=== PATIENT | female | born 1990 | race Caucasian/White ===

== ENCOUNTER 2017-03-22 13:18 | Inpatient (IN) | payer MEDICAID, OTHER ==
--- NOTE | 2017-03-22 15:17 | ED ---
General Adult HPI - General Chief complaint: Psychiatric Symptoms Stated complaint: mental health Time Seen by Provider: 03/22/17 14:46 Source: patient, RN notes reviewed Mode of arrival: ambulatory Limitations: no limitations - History of Present Illness Initial comments: 26-year-old female presents to the emergency department with a chief complaint of needing a mental health evaluation. Patient has been causing some habits and her family she has been writing notes to her work they are in formulas and she's been referencing TV shows. Family was informed by the police that she should take her for mental health evaluation. Patient denies any suicidal or homicidal ideation. Patient denies any recent fever, chills, shortness of breath , chest pain, back pain, abdominal pain, nausea vomiting, numbness or tingling, dysuria or hematuria, constipation or diarrhea, headaches or visual changes, or any other current symptoms. - Related Data Home Medications Medication Instructions Recorded Confirmed Melatonin Magnesium Otc 2 - 4 tab PO HS 03/22/17 03/22/17 Allergies Allergy/AdvReac Type Severity Reaction Status Date / Time No Known Allergies Allergy Verified 03/22/17 15:06 Review of Systems ROS Statement: Those systems with pertinent positive or pertinent negative responses have been documented in the HPI. ROS Other: All systems not noted in ROS Statement are negative. Past Medical History Past Medical History: No Reported History Additional Past Medical History / Comment(s): PCOS History of Any Multi-Drug Resistant Organisms: None Reported Past Surgical History: No Surgical Hx Reported Past Psychological History: Anxiety, Bipolar, Depression, Panic Disorder Smoking Status: Current every day smoker Past Alcohol Use History: None Reported Past Drug Use History: None Reported General Exam - General Exam Comments Initial Comments: General: The patient is awake and alert, in no distress, and does not appear acutely ill. Eye: Pupils are equal, round. Ears, nose, mouth and throat: There are moist mucous membranes. Neck: The neck is supple, there is no tenderness. Cardiovascular: There is a regular rate and rhythm. No murmur, rub or gallop is appreciated. Respiratory: Lungs are clear to auscultation, respirations are non-labored, breath sounds are equal. No wheezes, stridor, rales, or rhonchi. Gastrointestinal: Soft, non-distended, non-tender abdomen without masses or organomegaly noted. There is no rebound or guarding present. No CVA tenderness. Bowel sounds are unremarkable. Neurological: CN II-XII intact, There are no obvious motor or sensory deficits. Coordination appears grossly intact. Speech is normal. Skin: Skin is warm and dry and no rashes or lesions are noted. Psychiatric: Cooperative. flat affect. Limitations: no limitations Course Vital Signs 03/22/17 13:35 Temperature 98.7 F Pulse Rate 115 H Respiratory 18 Rate Blood Pressure 138/96 O2 Sat by Pulse 100 Oximetry Medical Decision Making - Medical Decision Making 26-year-old female presents for mental health evaluation. At this time no suicidal or homicidal ideation. At this time the patient is cleared to be evaluated by psychiatry. At this time patient will be admitted for continued mental health care. - Lab Data Lab Results 03/22/17 03/22/17 Range/Units 15:44 15:44 Urine HCG, Qual Not Detected (Not Detectd) Urine Opiates Screen Not Detected (NotDetected) Ur Oxycodone Screen Not Detected (NotDetected) Urine Methadone Screen Not Detected (NotDetected) Ur Propoxyphene Screen Not Detected (NotDetected) Ur Barbiturates Screen Not Detected (NotDetected) U Tricyclic Antidepress Not Detected (NotDetected) Ur Phencyclidine Scrn Not Detected (NotDetected) Ur Amphetamines Screen Not Detected (NotDetected) U Methamphetamines Scrn Not Detected (NotDetected) U Benzodiazepines Scrn Not Detected (NotDetected) Urine Cocaine Screen Not Detected (NotDetected) U Marijuana (THC) Screen Not Detected (NotDetected) Disposition Clinical Impression: Psychosis Disposition: TRANSFER TO PSYCH HOSP/UNIT
[2017-03-22 16:18] LABS: Amphetamine Screen,Urine Not Detected (NotDetected); Barbiturate Screen,Urine Not Detected (NotDetected); Benzodiazepines Screen,Urine Not Detected (NotDetected); Cocaine Screen,Urine Not Detected (NotDetected); Methadone Screen, Urine Not Detected (NotDetected); Opiate Screen,Urine Not Detected (NotDetected); Oxycodone Screen, Urine Not Detected (NotDetected); Phencyclidine Screen,Urine Not Detected (NotDetected); Tricyclic Antidepressant,Urine Not Detected (NotDetected); Urn Cannabinoid Scrn Not Detected (NotDetected)
[2017-03-22] MEDS ORDERED: NICOTINE 7MG/24HR PATCH TRANSDERM STA (17:05)
[2017-03-22] MEDS ORDERED: LORazepam 2 MG/ML INJ IM PRN (18:00)
[2017-03-22] MEDS ORDERED: ZIPRASIDONE 20 MG VIAL IM PRN (18:01)
[2017-03-22] MEDS ORDERED: ACETAMINOPHEN TAB 325 MG TAB PO PRN (18:01)
[2017-03-22] MEDS ORDERED: MAGNESIUM HYDROXIDE 2,400 MG/10 ML CUP PO PRN (18:01)
[2017-03-22] MEDS ORDERED: MAG HYDROX/AL HYDROX/SIMETH 30 ML CUP PO PRN (18:01)
--- NOTE | 2017-03-22 20:19 | P.MDCNMH ---
History of Present Illness H&P Date: 03/22/17 Chief Complaint: medical management 26 year old female with history of PCOS, presented due to family concerns regarding her behavior. Patient denies any issues, she reports that she has left her family in [place] and moved to [place] to live with her aunt, meanwhile she was preparing to go back to school and hoping to get admitted to [facility]. Her aunt had concerns regarding her behavior over the past 3-4 months and decided to bring her back to the [facility] for mental health evaluation. Otherwise the patient denies any physical or medical concerns at this time. Review of Systems Constitutional: Patient denies fever, denies chills, denies night sweating, denies significant weight changes Eyes: Patient denies visual changes, denies eye pain ENT: Patient denies ear pain, denies rhinorrhea, denies sore throat Cardiovascular: Patient denies chest pain, denies exertional dyspnea, denies peripheral leg edema, denies orthopnea, denies paroxysmal nocturnal dyspnea Respiratory:Patient denies cough, denies wheezing, denies shortness of breath Gastrointestinal: Patient denies diarrhea, denies constipation, denies nausea , denies vomiting, denies abdominal pain Genitourinary: Patient denies dysuria, denies hematuria, denies changes in urinary habits, denies genital lesions Musculoskeletal: Patient denies muscle pain, denies joint pain Psychiatric: Patient denies changes in mood or memory, denies suicidal ideation, denies anxiety Endocrine: Patient denies heat intolerance, denies cold intolerance, denies excessive thirst, denies polyuria Neurological: Patient denies focal neurologic deficits, denies weakness, denies numbness, denies tingling Hem/Lymphatic: Patient denies bleeding tendency, denies bruising, denies swollen lymph glands Allergic/Immun: Patient denies recent allergic reactions Skin: Patient denies rashes, denies pruritis, denies ulcers Past Medical History Past Medical History: No Reported History (denies any family history of CAD, CA , or mental health illnesses) Additional Past Medical History / Comment(s): PCOS History of Any Multi-Drug Resistant Organisms: None Reported Past Surgical History: No Surgical Hx Reported Smoking Status: Current every day smoker - Past Family History Father Additional Family Medical History / Comment(s): Medications and Allergies Home Medications Medication Instructions Recorded Confirmed Type Melatonin Magnesium Otc 2 - 4 tab PO HS 03/22/17 03/22/17 History Allergies Allergy/AdvReac Type Severity Reaction Status Date / Time No Known Allergies Allergy Verified 03/22/17 15:06 Physical Exam Vitals: Vital Signs Temp Pulse Pulse Resp BP BP Pulse Ox 03/22/17 18:33 98.2 F 103 H 18 125/76 03/22/17 17:54 98.2 F 95 16 128/79 100 03/22/17 13:35 98.7 F 115 H 18 138/96 100 Intake and Output 03/22/17 03/22/17 03/22/17 06:59 14:59 22:59 Other: Weight 104.145 kg 102.228 kg Patient Weight 03/23/17 06:59 Weight 102.228 kg Constitutional: No acute distress, conversant, pleasant Eyes: Anicteric sclerae, moist conjunctiva, no lid-lag Pupils equal round reactive to light ENMT: NC/AT Oropharynx clear, no erythema, exudates Neck: Supple, FROM, no masses, or JVD No carotid bruits No thyromegaly Lungs: Clear to auscultation Clear to percussion Normal respiratory effort, no accessory muscle use Cardiovascular: Heart regular in rate and rhythm, systolic murmur, no gallops, or rubs No peripheral edema Abdominal: Soft Nontender, no guarding, rebound or rigidity Abdomen moving with respiration Normoactive bowel sounds No hepatomegaly, No splenomegaly No palpable mass No abdominal wall hernia noted Skin: Normal temperature, tone, texture, turgor No induration No subcutaneous nodules No rash, lesions No ulcers Extremities: No digital cyanosis No clubbing Pedal pulses intact and symmetrical Radial pulses intact and symmetrical No calf tenderness Psychiatric: Alert and oriented to person, place and time Appropriate affect poor judgment Neuro Muscles Strength 5/5 in all 4 extremities Sensation to light touch grossly present throughout Cranial nerves II-XII grossly intact No focal sensory deficits Lymphatics: no palpable cervical or supraclavicular , or inguinal lymph nodes Cranial Nerve Examination - Cranial Nerves Cranial Nerve II- Optic: Intact Cranial Nerve III- Oculomotor: Intact Cranial Nerve IV- Trochlear: Intact Cranial Nerve V- Trigeminal: Intact Cranial Nerve - Abducens: Intact Cranial Nerve VII- Facial: Intact Cranial Nerve VIII- Auditory: Intact Cranial Nerve IX- Glossopharyngeal: Intact Cranial Nerve X- Vagus: Intact Cranial Nerve XI- Accessory: Intact Cranial Nerve XII- Hypoglossal: Intact Assessment and Plan (1) Psychosis Narrative/Plan: management per psych Current Visit: Yes Status: Acute Code(s): F29 - UNSP PSYCHOSIS NOT DUE TO A SUBSTANCE OR KNOWN PHYSIOL COND SNOMED Code(s): 61897570 (2) Smoking Narrative/Plan: counseled to quit smoking NRT offered Current Visit: Yes Status: Chronic Code(s): F17.200 - NICOTINE DEPENDENCE, UNSPECIFIED, UNCOMPLICATED SNOMED Code(s): 57289180 (3) DVT prophylaxis Narrative/Plan: low risk and ambulatory Current Visit: Yes Status: Acute Code(s): INV2994 - SNOMED Code(s): 490925582 Plan: Thank you for allowing us to participate in the care of this patient. We will follow peripherally. Do not hesitate to contact us with questions. Someone can be reached from the [facility] hospitalist group at all hours of the day at [phone].
[2017-03-22] MEDS ORDERED: LORazepam 1 MG TAB PO PRN (23:01)
[2017-03-23] MEDS: NICOTINE 21MG/24HR PATCH TRANSDERM SCH (09:45)
[2017-03-23] MEDS: ARIPiprazole 2 MG TAB PO SCH (10:05)
[2017-03-23 12:40] LABS: ALT 24 U/L (9-52); AST 18 U/L (14-36); Albumin 4.9 g/dL (3.5-5.0); Alkaline Phosphatase 58 U/L (38-126); Anion Gap 15 mmol/L; Blood Urea Nitrogen 12 mg/dL (7-17); Calcium 10.3 mg/dL (8.4-10.2); Carbon Dioxide 23 mmol/L (22-30); Chloride 107 mmol/L (98-107); Cholesterol 156 mg/dL (<200); Glucose 78 mg/dL (74-99); HDL Cholesterol 39 mg/dL (40-60); LDL Cholesterol,Calculated 99 mg/dL (0-99); Potassium 4.2 mmol/L (3.5-5.1); Sodium 145 mmol/L (137-145); Total Bilirubin 1.7 mg/dL (0.2-1.3); Total Protein 7.8 g/dL (6.3-8.2); Triglycerides 92 mg/dL (<150)
[2017-03-23 12:43] LABS: Basophils # (A) 0.1 k/uL (0-0.2); Basophils % (A) 1 %; Eosinophils % (A) 1 %; HCT 46.1 % (34.0-46.0); HGB 14.6 gm/dL (11.4-16.0); Lymphocytes # (A) 1.6 k/uL (1.0-4.8); Lymphocytes % (A) 26 %; MCH 27.4 pg (25.0-35.0); MCHC 31.7 g/dL (31.0-37.0); MCV 86.4 fL (80.0-100.0); Mean Platelet Volume 8.4; Monocytes # (A) 0.3 k/uL (0-1.0); Monocytes % (A) 4 %; Neutrophils # (A) 4.2 k/uL (1.3-7.7); Neutrophils % (A) 67 %; Platelet Count 252 k/uL (150-450); RBC 5.33 m/uL (3.80-5.40); RDW 13.1 % (11.5-15.5); WBC 6.2 k/uL (3.8-10.6)
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
[2017-03-23 20:31] LABS: Hemoglobin A1C 4.8 % (4.0-6.0)
[2017-03-24] MEDS: NICOTINE 21MG/24HR PATCH TRANSDERM SCH (08:24)
[2017-03-24] MEDS: ARIPiprazole 2 MG TAB PO SCH (08:25)
--- NOTE | 2017-03-24 16:21 | P.PN ---
Progress Note - Text Progress Note Date: 03/24/17 Interval History: Patient is a 26-year-old female who was seen today and she reports that her thoughts are still racing, and she continues to have trouble perceiving reality which she describes as not being able to tell if people are really there are not. She states that she's does work for the [employer] and wishes that I could see her business cards. Patient states that she still feels restless and has a lot of energy and is irritable. She states that she is not feeling depressed and is not hearing voices. She also reported that she would consider a trial of lithium carbonate. Mental Status: Appearance/Attitude: Patient was neatly dressed, made good eye contact and was cooperative. Behavior: Patient did not display any psychomotor agitation or retardation. Speech/Language: Patient's speech was spontaneous and of normal volume and rhythm and she is coherent. Thought Process: Patient was goal-directed and she was not exhibiting any flight of ideas or loose associations. Thought Content: Patient denied any auditory or visual hallucinations but states at times she has trouble perceiving reality and doesn't know if people are really here or not. She states that her thoughts are still racing and she has difficulty sleeping even though she feels tired. She states she feels restless and needs to be up walking. Patient continued to express that she does work for the [employer] and wishes that I could see her business cards. Suicidal/Homicidal Ideation: Patient denies any current suicidal or homicidal ideation. Sensorium/Cognition: Patient was alert and oriented to person place and time and her recent and remote memory were grossly intact. Mood/Affect: Patient's mood was irritable and at times her affect was inappropriate, she was laughing when discussing working for the [employer]. Insight/Judgment: Patient's insight and judgment are limited. Assessment: Patient reports that her thoughts are still racing and she is continuing to have difficulty sleeping. She states that she has trouble perceiving reality and states that she does work for the [employer]. Patient continues to feel that cleaning solutions when she was at work have caused her to feel the way that she does. She reports no side effects from them medication and states that she would like to try lithium in addition to the Abilify. Patient states she is feeling irritable at times but is not feeling depressed. Plan: Patient will continue on Abilify but it will be increased to 5 mg daily and she will begin lithium 300 mg twice a day to target her mood and I reviewed the use and side effects of lithium with her. Patient will also be given melatonin 3 mg at bedtime to assist with her sleep. Patient continues to require hospitalization to stabilize her mood.
[2017-03-24] MEDS: MELATONIN 3 MG TABLET PO SCH (20:14)
[2017-03-24] MEDS: LITHIUM CARBONATE 300 MG CAP PO SCH (20:14)
[2017-03-25] MEDS: ARIPiprazole 5 MG TAB PO SCH (08:18)
[2017-03-25] MEDS: NICOTINE 21MG/24HR PATCH TRANSDERM SCH (08:18)
[2017-03-25] MEDS: LITHIUM CARBONATE 300 MG CAP PO SCH ×2 (08:18→21:00)
--- NOTE | 2017-03-25 12:25 | P.PN ---
Progress Note - Text Progress Note Date: 03/25/17 Interval History: Patient is a 26-year-old female who was seen again today and she reports that she slept well last evening. She states that her racing thoughts have decreased. Patient states she is feeling less irritable and has been attending groups and activities. She reports her focus and concentration have also improved and she no longer feels that she has any super strength. Patient continues to feel that the chemicals that she uses a camouflage assembler have caused her current problems and when questioned about her business card stated that it was a project so that she could try to get into [employer] for a business degree, she made the business card and states it was an idea it showed that she was creative. 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 Patient reports that she is not having any side effects from the medication. Mental Status: Appearance/Attitude: Patient was neatly and appropriately dressed , made good eye contact and was cooperative. Behavior: Patient did not display any psychomotor agitation or retardation. Speech/Language: Patient's speech was spontaneous and of normal volume and rhythm and she was coherent. Thought Process: Patient was goal-directed, reports that her racing thoughts have slowed. She was not expressing any loose associations or flight of ideas. Thought Content: Patient denies any auditory or visual hallucinations, patient continues to feel the chemicals she uses a camouflage assembler caused all of her symptoms. 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 Patient states that she is sleeping and eating well and is feeling much less irritable. Suicidal/Homicidal Ideation: Patient denies any current suicidal or homicidal ideation. Sensorium/Cognition: Patient is alert and oriented to person, place, time and her recent and remote memory are grossly intact. Patient reports that her concentration and focus have improved. Mood/Affect: Patient's mood is less irritable, and her affect is appropriate. 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 She also continues to believe that the chemicals of caused all of her current problems. Patient reports no side effects from the medication and states that she is sleeping and eating well. Patient has been attending and participating in groups and activities. Plan: Patient continue on Abilify 5 mg daily to target her psychotic symptoms and lithium 300 mg twice a day to target her mood. A lithium level will be obtained on March 27 to assess
[2017-03-25] MEDS: MELATONIN 3 MG TABLET PO SCH (21:00)
[2017-03-26] MEDS: NICOTINE 21MG/24HR PATCH TRANSDERM SCH (08:28)
[2017-03-26] MEDS: LITHIUM CARBONATE 300 MG CAP PO SCH ×2 (08:28→20:28)
[2017-03-26] MEDS: ARIPiprazole 5 MG TAB PO SCH (08:28)
--- NOTE | 2017-03-26 12:22 | P.PN ---
Progress Note - Text Progress Note Date: 03/26/17 Interval History: Patient's 26-year-old female who was seen today and she reports that she slept 6 hours last night, feels rested. She reports that the racing thoughts and decreased and she is not having any suicidal or homicidal thoughts. She would not discuss the topic of the women that she had been contacting under [place] soon to name and states she'll wait to speak about that with a counselor. She reports that she does not feel she has any superhuman strength. But when questioned about the business card that she designed with a title she stated that even though she does not have a degree she could use that title as Dr. Santa uses the title and he has no degree. 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 Patient reported no side effects from the medication. Mental Status: Appearance/Attitude: Patient is appropriately dressed, makes good eye contact and is cooperative. Behavior: Patient does not display any psychomotor agitation or retardation. Speech/Language: Patient's speech is spontaneous and of normal volume and rhythm and she is coherent. 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 Patient no longer feels she has superhuman strength and states she is sleeping well and feeling rested. Suicidal/Homicidal Ideation: Patient denies any current suicidal or homicidal ideation Sensorium/Cognition: Patient is alert and oriented to person, place, and time and her recent and remote memory are grossly intact. Patient reports her concentration and focus have improved. 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 Patient reports she has no source of financial support other than money that she has in an [employer] where she was working in [place]. Patient is reporting no side effects from the medication and is sleeping well. She reports her racing thoughts have improved and she is able to concentrate and focus. She and has been attending and participating in groups. Plan: Patient continue on Abilify 5 mg a day as well as lithium 300 mg twice a day to target her manic symptoms. Melatonin 3 mg we'll continue to target her sleep. Will obtain a lithium level tomorrow morning and based on that level will adjust her dosage of lithium. Patient continues to require hospitalization to further stabilize her mood.
[2017-03-26] MEDS: MELATONIN 3 MG TABLET PO SCH (20:28)
[2017-03-27] MEDS: ARIPiprazole 5 MG TAB PO SCH (09:47)
[2017-03-27] MEDS: NICOTINE 21MG/24HR PATCH TRANSDERM SCH (09:48)
[2017-03-27] MEDS: LITHIUM CARBONATE 300 MG CAP PO SCH ×2 (10:23→20:39)
--- NOTE | 2017-03-27 10:32 | P.PN ---
Progress Note - Text Progress Note Date: 03/27/17 Interval History: Patient is a 26-year-old female who was seen today. Patient states that she slept better last night because she removed her nicotine patch and did not have any nightmares and slept well through the evening. She reports that she is attending groups and activities and has found them helpful. She states her focus and concentration have improved and she is no longer having any racing thoughts. Patient did not spontaneously discuss any of her prior grandiose ideation regarding her business card. Patient reported no side effects from the medication. Mental Status: Appearance/Attitude: Patient was neatly and appropriately dressed , made good eye contact and was cooperative. Behavior: Patient did not exhibit any psychomotor agitation or retardation. Speech/Language: Patient's speech was spontaneous and of normal volume and rhythm and she was coherent. Thought Process: Patient was goal-directed and there was no evidence of loose associations or flight of ideas. Patient was not tangential nor circumstantial. 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 No other paranoid or delusional ideation was elicited. Patient reports that she is sleeping and eating well. She reported that she no longer has thoughts that she has super medina. Suicidal/Homicidal Ideation: Patient denies any current suicidal or homicidal ideation. Sensorium/Cognition: Patient was alert and oriented to person, place, time and her recent and remote memory were grossly intact. Patient reports her concentration and focus have improved and she is able to read a book Mood/Affect: Patient's mood is more stable, euthymic and her affect is appropriate Insight/Judgment: Patient's insight and judgment are fair. Assessment: Patient reports no further racing thoughts, she did not voluntarily express any delusional ideation or grandiose ideation today and patient states that she is no longer having any thoughts that she has super medina. She reports her concentration and focus have improved and she has been attending and participating in groups and activities. She reports that she slept well last evening after removing her nicotine patch. Patient reports no side effects from medications. Patient's lithium level this morning was 0.3. Plan: Patient continue on Abilify 5 mg daily and we'll increase her lithium to 300 mg in the morning and 600 mg at bedtime and repeat a lithium level on Wednesday to assess this. Patient and I discussed discharge early next week and she was agreeable with this plan.
[2017-03-27] MEDS: MELATONIN 3 MG TABLET PO SCH (20:39)
[2017-03-28] MEDS: LITHIUM CARBONATE 300 MG CAP PO SCH ×3 (08:39→20:39)
[2017-03-28] MEDS: NICOTINE 21MG/24HR PATCH TRANSDERM SCH (08:39)
[2017-03-28] MEDS: ARIPiprazole 5 MG TAB PO SCH (08:39)
--- NOTE | 2017-03-28 08:57 | P.PN ---
Progress Note - Text Progress Note Date: 03/28/17 Interval History: Patient is a 26-year-old female who is seen today and reports that she slept well last evening and feeling rested. She reports no racing thoughts at all and states that she is able to focus and concentrate well. 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 Patient states that she is not having any side effects from the medication. She reports attending groups and activities and finds them helpful. Mental Status: Appearance/Attitude: Patient is neatly dressed, makes good eye contact and is cooperative. Behavior: Patient does not display any psychomotor agitation or retardation. Speech/Language: Patient speech is spontaneous and of normal volume and rhythm and she is coherent. Thought Process: Patient is goal-directed there is no evidence of loose associations or flight of ideas and she is not tangential or circumstantial. Thought Content: Patient denies any auditory or visual hallucinations and no paranoid ideation was elicited and the patient is beginning to question her printing of business cards. She states that she is not feeling overwhelmed, is sleeping and eating well. Suicidal/Homicidal Ideation: Patient denies any current suicidal or homicidal ideation Sensorium/Cognition: Patient is alert and oriented to person, place, time and her recent and remote memory are grossly intact. Patient states her focus and attention are improved. Mood/Affect: Patient's mood is euthymic and her affect is appropriate Insight/Judgment: Patient's insight and judgment are fair. Assessment: Patient continues to improve, reporting that she is no longer having racing thoughts at all, states that she is sleeping and eating well and able to focus and concentrate without difficulty in groups and activities. She reports that she is beginning to question her printing of the business cards. She reports that she is no longer feeling overwhelmed and is sleeping and eating well. She continues to attend groups and activities and participate. Her mood is more stable. Plan: Patient will continue on lithium at a dose of 300 mg in the morning and 600 mg at bedtime and Abilify 5 mg in the morning we'll repeat a lithium level tomorrow morning. Patient and I discussed discharge in the next several days and she feels ready to do this.
[2017-03-28] MEDS: MELATONIN 3 MG TABLET PO SCH (20:39)
[2017-03-29] MEDS: ARIPiprazole 5 MG TAB PO SCH (09:27)
[2017-03-29] MEDS: LITHIUM CARBONATE 300 MG CAP PO SCH ×2 (09:28→20:15)
[2017-03-29] MEDS: NICOTINE 21MG/24HR PATCH TRANSDERM SCH (09:28)
--- NOTE | 2017-03-29 13:06 | P.PN ---
Progress Note - Text Progress Note Date: 03/29/17 Interval History: Patient is a 26-year-old female who was seen today and she reports that she is doing quite well. She states she is sleeping well and had a good family meeting with her aunt. She states she is no longer having racing thoughts and she states that she's been attending groups and activities and has been more social than she ever has been. She also was questioning whether printing up the business card was a good idea or not. 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 Patient reports she is not having any side effects from the medication. Patient and I when we discussed her mood symptoms was able to endorse that she has had episodes of depression and manic symptoms in the past that have not lasted for very long and have not caused her any difficulties until this most recent episode. Mental Status: Appearance/Attitude: Patient is appropriately dressed, makes good eye contact and is cooperative. Behavior: Patient does not display any psychomotor agitation or retardation. Speech/Language: Patient's speech is spontaneous and normal volume and rhythm and she is coherent. Thought Process: Patient is goal-directed there is no evidence of loose associations or flight of ideas and she is not tangential or circumstantial. Thought Content: Patient denies auditory or visual hallucinations and no paranoid ideation was elicited at this time. 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 Patient states that she is not having racing thoughts and is able to focus and concentrate much better and states that she has been more social on the unit than she has been in the past. Suicidal/Homicidal Ideation: Patient denies any current suicidal or homicidal ideation Sensorium/Cognition: Patient was alert and oriented to person, place, time and recent and remote memory were grossly intact. Mood/Affect: Patient's mood is euthymic and her affect is appropriate Insight/Judgment: Patient's insight and judgment are fair. 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 Patient states that she is focused and sleeping well. She also reports she is more social on the unit than she has been in the past. Patient reports no difficulties with the medications. Patient has been attending and participating in groups and activities and her behavior has been appropriate. Patient states her family meeting went well with her aunt. Repeat lithium level was 0.4 on 900 mg a day. Plan: Patient will continue on lithium carbonate 3 mg in the morning and 600 mg at bedtime and Abilify 5 mg in the morning. Patient reports that she will return to live with her aunt until she finds an apartment in the [place] area. Patient and I discussed possible discharge tomorrow and she states that she feels ready to be discharged from the hospital. Patient and I discussed that her lithium will be titrated further as an outpatient based on her blood levels and she understood this.
[2017-03-29] MEDS: MELATONIN 3 MG TABLET PO SCH (20:15)
[2017-03-30 06:44] VITALS: BP 112/67; PULSE 82; RESP 12; TEMP 97.7
[2017-03-30] MEDS: NICOTINE 21MG/24HR PATCH TRANSDERM SCH (08:28)
[2017-03-30] MEDS: LITHIUM CARBONATE 300 MG CAP PO SCH (08:28)
[2017-03-30] MEDS: ARIPiprazole 5 MG TAB PO SCH (08:28)
--- NOTE | 2017-03-30 12:24 | P.DS ---
Providers Date of admission: 03/22/17 17:45 Expected date of discharge: 03/30/17 Attending physician: Cecily Hendricks MD Consults: 03/22/17 18:01 Consult Physician Routine Consulting Provider: [facility] Consult Reason/Comments: H&P Do you want consulting provider notified?: Yes Primary care physician: Physician Nonstaff Hospital Course: Discharge Diagnosis: Bipolar 1 disorder, current episode depressed with psychotic features, mixed features and rapid cycling Reason for Admission: Patient is a 26-year-old female who was brought to the emergency room by her aunt due to the patient's increasing psychotic symptoms. Patient states that she has been living with her aunt since November 2016 states that she came here from [place]. 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 Patient states that she was having difficulty determining what was real at that time, hearing voices that were conversations but making no comments on her behavior nor were they command hallucinations. Patient states she became increasingly depressed and was unable to return to work. She states she was fired from her job after she wrote her a letter for her absences. Patient states she then came to live with her aunt and has been here since sometime in November. Patient states that she was doing well prior to her symptoms beginning in the fall of last year. Patient states she has episodes that last for several weeks at a time of increased energy, pressured speech, decreased need for sleep and also has thoughts at times that she has special medina and involved improved strength. She states during these times that she has an increased interest in sex but denies any impulsive spending. 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 She states on the back there are letters that stand for government corruption and she had these printed as an educational purpose for the psychiatric schizophrenia. She states that she has also had episodes of depression where she has decreased energy and interest increased need for sleep and eating more states at this time she has little interest or energy to do things. She denies any suicidal ideation at this time. Patient states that she has had auditory hallucination during both of these mood swings that are conversations that she hears but make no command hallucinations or comments on her behavior. Patient states that these mood symptoms last for several weeks at a time and she goes back and forth between the 2 of them. She reports that she has had these mood swings since the age of 18 but none of them have been severe enough to impact her ability to work and only recently did they create difficulties for her working. 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 Patient states she came to live with her aunt because she went on vacation, her aunt suggested that she get help and brought her to the emergency room here. Patient's aunt lives in [facility]. Patient describes a prior psychiatric admission at the age of 18 in the [facility] where she states she was speaking nonsense, was hearing voices and was paranoid, she denied any suicidal ideation at that time. She states she was treated with Zoloft and Risperdal but the Zoloft was discontinued due to the patient developing suicidal ideation that was felt to be secondary to the Zoloft, the patient continued on Risperdal for 2 months and then discontinued it. She states she did not follow-up with any outpatient counseling recommendations was receiving her medication from her primary care physician. She states prior to her admission to the hospital she was using marijuana that she thinks was laced with LSD as well as ecstasy, snorted an unknown muscle relaxant and was using opioids. She states her use had begun 2 months prior to her admission. Mental status: [Appearance/Attitude: Patient is appropriately dressed, makes intermittent eye contact and was cooperative during the interview. Behavior: Patient does not display any psychomotor agitation or retardation. Speech/Language: Patient speech is spontaneous and of normal volume and rhythm and she is coherent. Thought Process: Patient is goal-directed, is no evidence of loose associations or flight of ideas. She is not tangential or circumstantial. Thought Content: Patient reports having auditory hallucinations that are conversations, she denies any visual hallucinations. Patient feels that the chemicals at school have caused her to have the difficulties that she is having currently. She states that she has mood swings between periods of increased energy, rapid speech need for less sleep and thoughts that she has special medina. 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 She states on the back there are letters that stand for government corruption and she produced these cards as an educational item for psyche of schizophrenia. Patient also reports episodes of depression with decreased energy and interest in doing things as well as an increased need for sleep. Patient states that she has some paranoid ideation because the police were called because of things that she wrote to friends and she is not able to understand why they were contacted. Suicidal/Homicidal Ideation: patient denies any current suicidal or homicidal ideation. Sensorium/Cognition: patient is alert and oriented to person, place, time and her recent and remote memory are grossly intact. Mood/Affect: Patient reports that she is feeling depressed, when she was describing her business cards she was smiling and her affect was appropriate to her mood. Insight/Judgment: patient's insight and judgment are impaired. Hospital Course: Patient was admitted on a voluntary basis, routine laboratory studies were obtained, patient was placed on routine observation and a medical consultation was requested. Patient was also ordered group and activity therapy. Patient presents with a history of mood swings cycling between manic symptoms and depressive symptoms. She also presented with delusional ideation and so was begun on Abilify titrated to a dose of 5 mg daily. Patient was agreeable to start lithium and was begun on lithium and titrated to a dose of 300 mg in the morning and 600 mg at bedtime. Patient was also placed on melatonin 3 mg to assist with her sleep. 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 Patient was attending groups and activities and was participating appropriately. Patient stated she was more social as well as being able to concentrate and focus much better. Patient had no side effects from the medication and felt that her mood was much more stable and she was sleeping well. Patient reported no other concerns and she was ready for discharge. Patient's most recent lithium level was 0.4 on 900 mg per day. Allergies No Known Allergies Allergy (Verified 03/22/17 15:06) Lab Results 03/22/17 03/22/17 03/23/17 Range/Units 15:44 15:44 11:57 WBC (3.8-10.6) k/uL RBC (3.80-5.40) m/uL Hgb (11.4-16.0) gm/dL Hct (34.0-46.0) % MCV (80.0-100.0) fL MCH (25.0-35.0) pg MCHC (31.0-37.0) g/dL RDW (11.5-15.5) % Plt Count (150-450) k/uL Neutrophils % % Lymphocytes % % Monocytes % % Eosinophils % % Basophils % % Neutrophils # (1.3-7.7) k/uL Lymphocytes # (1.0-4.8) k/uL Monocytes # (0-1.0) k/uL Eosinophils # (0-0.7) k/uL Basophils # (0-0.2) k/uL Sodium (137-145) mmol/L Potassium (3.5-5.1) mmol/L Chloride (98-107) mmol/L Carbon Dioxide (22-30) mmol/L Anion Gap mmol/L BUN (7-17) mg/dL Creatinine (0.52-1.04) mg/dL Est GFR (MDRD) Af Amer (>60 ml/min/1.73 sqM) Est GFR (MDRD) Non-Af (>60 ml/min/1.73 sqM) Glucose (74-99) mg/dL Estimated Ave Glu mg/dL 91 Hemoglobin A1c 4.8 (4.0-6.0) % Calcium (8.4-10.2) mg/dL Total Bilirubin (0.2-1.3) mg/dL AST (14-36) U/L ALT (9-52) U/L Alkaline Phosphatase (38-126) U/L Total Protein (6.3-8.2) g/dL Albumin (3.5-5.0) g/dL Triglycerides (<150) mg/dL Cholesterol (<200) mg/dL LDL Cholesterol, Calc (0-99) mg/dL HDL Cholesterol (40-60) mg/dL TSH (0.465-4.680) mIU/L Urine HCG, Qual Not Detected (Not Detectd) Urine Opiates Screen Not Detected (NotDetected) Ur Oxycodone Screen Not Detected (NotDetected) Urine Methadone Screen Not Detected (NotDetected) Ur Propoxyphene Screen Not Detected (NotDetected) Ur Barbiturates Screen Not Detected (NotDetected) U Tricyclic Antidepress Not Detected (NotDetected) Ur Phencyclidine Scrn Not Detected (NotDetected) Ur Amphetamines Screen Not Detected (NotDetected) U Methamphetamines Scrn Not Detected (NotDetected) U Benzodiazepines Scrn Not Detected (NotDetected) Drew mmol/L Urine Cocaine Screen Not Detected (NotDetected) U Marijuana (THC) Screen Not Detected (NotDetected) 03/23/17 03/23/17 03/27/17 Range/Units 11:57 11:57 08:56 WBC 6.2 (3.8-10.6) k/uL RBC 5.33 (3.80-5.40) m/uL Hgb 14.6 (11.4-16.0) gm/dL Hct 46.1 H (34.0-46.0) % MCV 86.4 (80.0-100.0) fL MCH 27.4 (25.0-35.0) pg MCHC 31.7 (31.0-37.0) g/dL RDW 13.1 (11.5-15.5) % Plt Count 252 (150-450) k/uL Neutrophils % 67 % Lymphocytes % 26 % Monocytes % 4 % Eosinophils % 1 % Basophils % 1 % Neutrophils # 4.2 (1.3-7.7) k/uL Lymphocytes # 1.6 (1.0-4.8) k/uL Monocytes # 0.3 (0-1.0) k/uL Eosinophils # 0.0 (0-0.7) k/uL Basophils # 0.1 (0-0.2) k/uL Sodium 145 (137-145) mmol/L Potassium 4.2 (3.5-5.1) mmol/L Chloride 107 (98-107) mmol/L Carbon Dioxide 23 (22-30) mmol/L Anion Gap 15 mmol/L BUN 12 (7-17) mg/dL Creatinine 0.76 (0.52-1.04) mg/dL Est GFR (MDRD) Af Amer >60 (>60 ml/min/1.73 sqM) Est GFR (MDRD) Non-Af >60 (>60 ml/min/1.73 sqM) Glucose 78 (74-99) mg/dL Estimated Ave Glu mg/dL Hemoglobin A1c (4.0-6.0) % Calcium 10.3 H (8.4-10.2) mg/dL Total Bilirubin 1.7 H (0.2-1.3) mg/dL AST 18 (14-36) U/L ALT 24 (9-52) U/L Alkaline Phosphatase 58 (38-126) U/L Total Protein 7.8 (6.3-8.2) g/dL Albumin 4.9 (3.5-5.0) g/dL Triglycerides 92 (<150) mg/dL Cholesterol 156 (<200) mg/dL LDL Cholesterol, Calc 99 (0-99) mg/dL HDL Cholesterol 39 L (40-60) mg/dL TSH 0.990 (0.465-4.680) mIU/L Urine HCG, Qual (Not Detectd) Urine Opiates Screen (NotDetected) Ur Oxycodone Screen (NotDetected) Urine Methadone Screen (NotDetected) Ur Propoxyphene Screen (NotDetected) Ur Barbiturates Screen (NotDetected) U Tricyclic Antidepress (NotDetected) Ur Phencyclidine Scrn (NotDetected) Ur Amphetamines Screen (NotDetected) U Methamphetamines Scrn (NotDetected) U Benzodiazepines Scrn (NotDetected) Drew 0.3 mmol/L Urine Cocaine Screen (NotDetected) U Marijuana (THC) Screen (NotDetected) 03/29/17 Range/Units 08:15 WBC (3.8-10.6) k/uL RBC (3.80-5.40) m/uL Hgb (11.4-16.0) gm/dL Hct (34.0-46.0) % MCV (80.0-100.0) fL MCH (25.0-35.0) pg MCHC (31.0-37.0) g/dL RDW (11.5-15.5) % Plt Count (150-450) k/uL Neutrophils % % Lymphocytes % % Monocytes % % Eosinophils % % Basophils % % Neutrophils # (1.3-7.7) k/uL Lymphocytes # (1.0-4.8) k/uL Monocytes # (0-1.0) k/uL Eosinophils # (0-0.7) k/uL Basophils # (0-0.2) k/uL Sodium (137-145) mmol/L Potassium (3.5-5.1) mmol/L Chloride (98-107) mmol/L Carbon Dioxide (22-30) mmol/L Anion Gap mmol/L BUN (7-17) mg/dL Creatinine (0.52-1.04) mg/dL Est GFR (MDRD) Af Amer (>60 ml/min/1.73 sqM) Est GFR (MDRD) Non-Af (>60 ml/min/1.73 sqM) Glucose (74-99) mg/dL Estimated Ave Glu mg/dL Hemoglobin A1c (4.0-6.0) % Calcium (8.4-10.2) mg/dL Total Bilirubin (0.2-1.3) mg/dL AST (14-36) U/L ALT (9-52) U/L Alkaline Phosphatase (38-126) U/L Total Protein (6.3-8.2) g/dL Albumin (3.5-5.0) g/dL Triglycerides (<150) mg/dL Cholesterol (<200) mg/dL LDL Cholesterol, Calc (0-99) mg/dL HDL Cholesterol (40-60) mg/dL TSH (0.465-4.680) mIU/L Urine HCG, Qual (Not Detectd) Urine Opiates Screen (NotDetected) Ur Oxycodone Screen (NotDetected) Urine Methadone Screen (NotDetected) Ur Propoxyphene Screen (NotDetected) Ur Barbiturates Screen (NotDetected) U Tricyclic Antidepress (NotDetected) Ur Phencyclidine Scrn (NotDetected) Ur Amphetamines Screen (NotDetected) U Methamphetamines Scrn (NotDetected) U Benzodiazepines Scrn (NotDetected) Drew 0.4 mmol/L Urine Cocaine Screen (NotDetected) U Marijuana (THC) Screen (NotDetected) Discharge Mental Status: Appearance/Attitude: Patient was appropriately and neatly dressed, made good eye contact and was cooperative. Behavior: Patient did not display any psychomotor agitation or retardation. Speech/Language: Patient's speech was spontaneous and of normal volume and rhythm and she was coherent Thought Process: Patient was goal-directed there is no evidence of loose associations or flight of ideas. Thought Content: Patient denied any auditory or visual hallucinations, no longer was reporting any delusional ideation and none was elicited and no paranoid ideation. 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 Patient reported her sleep and appetite were good. She no longer reported racing thoughts and stated that she was better able to focus. Suicidal/Homicidal Ideation: Patient denied any current suicidal or homicidal ideation Sensorium/Cognition: Patient was alert and oriented to person, place, and time and her recent and remote memory were grossly intact and her concentration and attention had improved Mood/Affect: Patient's mood was euthymic and her affect was appropriate Insight/Judgment: Patient's insight and judgment are fair. Risk Assessment: Patient's risk is low for self harm Discharge Plan: Patient will return to live with her aunt until she finds more permanent housing. [facility] has [facility]. She will continue on lithium 300 mg in the morning and 600 mg at bedtime which is given her current lithium level of 0.4 the patient and I discussed that the lithium dose may need to be titrated up further. Patient will also continue on Abilify 5 mg in the morning and melatonin 3 mg at bedtime. Patient was advised to be compliant with her medications and her follow-up appointments. Patient states that she will also follow-up with an OB/ RUG DESIGNER due to her polycystic ovarian syndrome. Patient Condition at Discharge: Stable Plan - Discharge Summary Discharge Rx Participant: No New Discharge Prescriptions: New ARIPiprazole [Abilify] 5 mg PO DAILY #14 tab Drew Carbonate 300 mg PO BID #42 cap Melatonin 3 mg PO HS #28 tablet Discontinued Melatonin Magnesium Otc 2 - 4 tab PO HS Discharge Medication List ARIPiprazole [Abilify] 5 mg PO DAILY #14 tab 03/30/17 [Rx] Drew Carbonate 300 mg PO BID #42 cap 03/30/17 [Rx] Melatonin 3 mg PO HS #28 tablet 03/30/17 [Rx] Follow up Appointment(s)/Referral(s): [facility] [Outside] - 1 Week (Please complete walk-in intake within 48 hours of hospital discharge. Hours: - 1030-5 Wed, - 830-3) None,Stated [REFERRING] - 1-2 days Discharge Disposition: HOME SELF-CARE
== END 2017-03-30 13:53 | disposition home or self-care (01) | DRG 885 ==
LOC: EC 13:18 → 3MHU 17:45
PROVIDERS: ADMIT Psychiatry & Neurology Psychiatry; ATTEND Psychiatry & Neurology Psychiatry
DX: F31.5 Bipolar disorder, current episode depressed, severe, with psychotic features (principal); E28.2 Polycystic ovarian syndrome; R01.1 Cardiac murmur, unspecified; Z62.810 Personal history of physical and sexual abuse in childhood; F41.0 Panic disorder [episodic paroxysmal anxiety]; F17.200 Nicotine dependence, unspecified, uncomplicated; G47.9 Sleep disorder, unspecified; Z91.410 Personal history of adult physical and sexual abuse; Z71.6 Tobacco abuse counseling
CPT/HCPCS: 80053; 80061; 80178; 80306; 81025; 82075; 83036; 84443; 85025; 99285

== ENCOUNTER 2017-04-02 03:06 | Emergency (ER) | payer MEDICAID, OTHER ==
[2017-04-02] MEDS ORDERED: LORazepam 2 MG/ML INJ IV STA (03:53)
[2017-04-02] MEDS ORDERED: SODIUM CHLORIDE 0.9% 1,000 ML IV STA (03:54)
[2017-04-02] MEDS ORDERED: SODIUM CHLORIDE 0.9% 500 ML IV STA (03:54)
--- NOTE | 2017-04-02 04:01 | ED ---
General Adult HPI - General Chief complaint: Psychiatric Symptoms Stated complaint: med reaction Time Seen by Provider: 04/02/17 03:33 Source: patient, RN notes reviewed, old records reviewed Mode of arrival: ambulatory Limitations: no limitations - History of Present Illness Initial comments: This is a 26-year-old female to ER for psychiatric evaluation, medication check. Patient has significant psychiatric history, bipolar disorder. Patient recently prescribed lithium, having difficulties with thought processes thinking of taking lithium. Family states patient is not being truthful with her thought processes. Patient's best up in 3 days as well as going to the extreme life stresses. She also states she is not sleeping throughout entire recent hospitalization here at this hospital for psychiatric illness. Patient' s 9 drugs or alcohol abuse - Related Data Previous Rx's Medication Instructions Recorded ARIPiprazole [Abilify] 5 mg PO DAILY #14 tab 03/30/17 Tryon Carbonate 300 mg PO BID #42 cap 03/30/17 Melatonin 3 mg PO HS #28 tablet 03/30/17 Allergies Allergy/AdvReac Type Severity Reaction Status Date / Time No Known Allergies Allergy Verified 04/02/17 03:13 Review of Systems ROS Statement: Those systems with pertinent positive or pertinent negative responses have been documented in the HPI. ROS Other: All systems not noted in ROS Statement are negative. Past Medical History Past Medical History: No Reported History Additional Past Medical History / Comment(s): PCOS History of Any Multi-Drug Resistant Organisms: None Reported Past Surgical History: No Surgical Hx Reported Past Anesthesia/Blood Transfusion Reactions: No Reported Reaction Additional Past Anesthesia/Blood Transfusion Reaction / Comment(s): clausterphobia Past Psychological History: Anxiety, Bipolar, Depression, Panic Disorder, Schizoaffective Disorder Smoking Status: Current every day smoker Past Alcohol Use History: None Reported Past Drug Use History: None Reported - Past Family History Father Additional Family Medical History / Comment(s): General Exam Limitations: no limitations General appearance: alert, in no apparent distress, anxious Head exam: Present: atraumatic, normocephalic, normal inspection Eye exam: Present: normal appearance, PERRL, EOMI. Absent: scleral icterus, conjunctival injection, periorbital swelling ENT exam: Present: normal exam, mucous membranes moist Neck exam: Present: normal inspection. Absent: tenderness, meningismus, lymphadenopathy Respiratory exam: Present: normal lung sounds bilaterally. Absent: respiratory distress, wheezes, rales, rhonchi, stridor Cardiovascular Exam: Present: regular rate, normal rhythm, normal heart sounds. Absent: systolic murmur, diastolic murmur, rubs, gallop, clicks GI/Abdominal exam: Present: soft, normal bowel sounds. Absent: distended, tenderness, guarding, rebound, rigid Extremities exam: Present: normal inspection, full ROM, normal capillary refill. Absent: tenderness, pedal edema, joint swelling, calf tenderness Back exam: Present: normal inspection Neurological exam: Present: alert, oriented X3, CN II-XII intact Psychiatric exam: Present: normal affect, normal mood Skin exam: Present: warm, dry, intact, normal color. Absent: rash Course Vital Signs 04/02/17 04/02/17 03:09 07:28 Temperature 98 F 97 F L Pulse Rate 79 88 Respiratory 18 16 Rate Blood Pressure 143/90 108/70 O2 Sat by Pulse 100 98 Oximetry - Reevaluation(s) Reevaluation #1: 04/02/17 06:20 Spoke with patient's family extensively regarding patient's psychiatric history , patient's family is very concerned Reevaluation #2: 04/02/17 06:21 Medical clear for psychiatric evaluation Reevaluation #3: 04/02/17 06:22 Medical record from prior inpatient psychiatric admission is reviewed Medical Decision Making - Medical Decision Making 26 female the ER with psychiatric symptoms, patient spoke with family spoke with okay for discharge home - Lab Data Result diagrams: 04/02/17 04:30 Lab Results 04/02/17 04/02/17 04/02/17 Range/Units 04:30 04:30 04:30 WBC 8.8 (3.8-10.6) k/uL RBC 5.15 (3.80-5.40) m/uL Hgb 14.4 (11.4-16.0) gm/dL Hct 43.0 (34.0-46.0) % MCV 83.7 (80.0-100.0) fL MCH 27.9 (25.0-35.0) pg MCHC 33.3 (31.0-37.0) g/dL RDW 12.9 (11.5-15.5) % Plt Count 279 (150-450) k/uL Neutrophils % 72 % Lymphocytes % 19 % Monocytes % 5 % Eosinophils % 2 % Basophils % 1 % Neutrophils # 6.4 (1.3-7.7) k/uL Lymphocytes # 1.7 (1.0-4.8) k/uL Monocytes # 0.4 (0-1.0) k/uL Eosinophils # 0.1 (0-0.7) k/uL Basophils # 0.1 (0-0.2) k/uL Salicylates <1.0 mg/dL Urine Opiates Screen Not Detected (NotDetected) Ur Oxycodone Screen Not Detected (NotDetected) Urine Methadone Screen Not Detected (NotDetected) Ur Propoxyphene Screen Not Detected (NotDetected) Acetaminophen <10.0 ug/mL Ur Barbiturates Screen Not Detected (NotDetected) U Tricyclic Antidepress Not Detected (NotDetected) Ur Phencyclidine Scrn Not Detected (NotDetected) Ur Amphetamines Screen Not Detected (NotDetected) U Methamphetamines Scrn Not Detected (NotDetected) U Benzodiazepines Scrn Not Detected (NotDetected) [place] 0.4 mmol/L Urine Cocaine Screen Not Detected (NotDetected) U Marijuana (THC) Screen Not Detected (NotDetected) Serum Alcohol <10 mg/dL Disposition Clinical Impression: Psychosis Disposition: HOME SELF-CARE Condition: Good Instructions: Bipolar Disorder (ED) Referrals: Ollie Olvera MD [Primary Care Provider] - 1-2 days
[2017-04-02 05:22] LABS: Amphetamine Screen,Urine Not Detected (NotDetected); Barbiturate Screen,Urine Not Detected (NotDetected); Benzodiazepines Screen,Urine Not Detected (NotDetected); Cocaine Screen,Urine Not Detected (NotDetected); Methadone Screen, Urine Not Detected (NotDetected); Opiate Screen,Urine Not Detected (NotDetected); Oxycodone Screen, Urine Not Detected (NotDetected); Phencyclidine Screen,Urine Not Detected (NotDetected); Tricyclic Antidepressant,Urine Not Detected (NotDetected); Urn Cannabinoid Scrn Not Detected (NotDetected)
[2017-04-02 05:26] LABS: Acetaminophen <10.0 ug/mL; Alcohol <10 mg/dL; Lithium 0.4 mmol/L; Salicylate <1.0 mg/dL
[2017-04-02 05:30] LABS: Basophils # (A) 0.1 k/uL (0-0.2); Basophils % (A) 1 %; Eosinophils # (A) 0.1 k/uL (0-0.7); Eosinophils % (A) 2 %; HGB 14.4 gm/dL (11.4-16.0); Lymphocytes # (A) 1.7 k/uL (1.0-4.8); Lymphocytes % (A) 19 %; MCH 27.9 pg (25.0-35.0); MCHC 33.3 g/dL (31.0-37.0); MCV 83.7 fL (80.0-100.0); Mean Platelet Volume 8.2; Monocytes # (A) 0.4 k/uL (0-1.0); Monocytes % (A) 5 %; Neutrophils # (A) 6.4 k/uL (1.3-7.7); Neutrophils % (A) 72 %; Platelet Count 279 k/uL (150-450); RBC 5.15 m/uL (3.80-5.40); RDW 12.9 % (11.5-15.5); WBC 8.8 k/uL (3.8-10.6)
[2017-04-02 07:30] VITALS: BP 108/70; PULSE 88; RESP 16; TEMP 97
== END 2017-04-02 07:30 | disposition home or self-care (01) ==
LOC: EC 03:06
DX: F29 Unspecified psychosis not due to a substance or known physiological condition (principal); F41.9 Anxiety disorder, unspecified; F25.1 Schizoaffective disorder, depressive type; F17.200 Nicotine dependence, unspecified, uncomplicated
CPT/HCPCS: 99284; 96374; 36415; 80178; 85025; 80306; 83520 ×2; 80320; J2060

== ENCOUNTER 2017-06-12 11:06 | Emergency (ER) | payer MEDICAID, OTHER ==
[2017-06-12 11:18] VITALS: TEMP 98.4
--- NOTE | 2017-06-12 11:44 | ED ---
General Adult HPI - General Chief complaint: Psychiatric Symptoms Stated complaint: Mental Health Time Seen by Provider: 06/12/17 11:19 Source: patient, RN notes reviewed Mode of arrival: ambulatory Limitations: no limitations - History of Present Illness Initial comments: Patient 26-year-old female presented to the emergency room today with a chief complaint of needing psychiatric evaluation. Patient does admit that she's been not feeling well. She was trying to self medicate herself by decreasing with him and she thought this may be the cause of her not feeling well. She states that she has had increased thoughts of depression. Denies any specific plan. Patient denies any other complaints or symptoms. Patient denies any recent fever, chills, shortness of breath, chest pain, back pain, abdominal pain , nausea or vomiting, numbness or tingling, visual changes, or any other complaints. - Related Data Previous Rx's Medication Instructions Recorded ARIPiprazole [Abilify] 5 mg PO DAILY #14 tab 03/30/17 Radley Carbonate 300 mg PO BID #42 cap 03/30/17 Melatonin 3 mg PO HS #28 tablet 03/30/17 Allergies Allergy/AdvReac Type Severity Reaction Status Date / Time No Known Allergies Allergy Verified 06/12/17 11:18 Review of Systems ROS Statement: Those systems with pertinent positive or pertinent negative responses have been documented in the HPI. ROS Other: All systems not noted in ROS Statement are negative. Past Medical History Past Medical History: No Reported History Additional Past Medical History / Comment(s): PCOS History of Any Multi-Drug Resistant Organisms: None Reported Past Surgical History: No Surgical Hx Reported Past Anesthesia/Blood Transfusion Reactions: No Reported Reaction Additional Past Anesthesia/Blood Transfusion Reaction / Comment(s): clausterphobia Past Psychological History: Anxiety, Bipolar, Depression, Panic Disorder, Schizoaffective Disorder Smoking Status: Current every day smoker Past Alcohol Use History: None Reported Past Drug Use History: None Reported - Past Family History Father Additional Family Medical History / Comment(s): General Exam - General Exam Comments Initial Comments: General: The patient is awake and alert, in no distress, and does not appear acutely ill. Eye: Pupils are equal, round and reactive to light, extra-ocular movements are intact. No nystagmus. There is normal conjunctiva bilaterally. No signs of icterus. Ears, nose, mouth and throat: There are moist mucous membranes and no oral lesions. Neck: The neck is supple, there is no tenderness or JVD. Cardiovascular: There is a regular rate and rhythm. No murmur, rub or gallop is appreciated. Respiratory: Lungs are clear to auscultation, respirations are non-labored, breath sounds are equal. No wheezes, stridor, rales, or rhonchi. Musculoskeletal: Normal ROM, no tenderness. Strength 5/5. Sensation intact. Pulses equal bilaterally 2+. Neurological: A&O x 3. CN II-XII intact, There are no obvious motor or sensory deficits. Coordination appears grossly intact. Speech is normal. Skin: Skin is warm and dry and no rashes or lesions are noted. Psychiatric: Cooperative Limitations: no limitations Course Vital Signs 06/12/17 06/12/17 11:15 14:47 Temperature 98.4 F Pulse Rate 90 72 Respiratory 18 16 Rate Blood Pressure 124/75 131/76 O2 Sat by Pulse 100 Oximetry Medical Decision Making - Medical Decision Making Patient was seen by mental health here in emergency room the recommend that patient can start of her medications. They've given her the doses to take she has medications at home. Patient's agreement with this plan. Discharged home. - Lab Data Lab Results 06/12/17 Range/Units 12:15 Urine Opiates Screen Not Detected (NotDetected) Ur Oxycodone Screen Not Detected (NotDetected) Urine Methadone Screen Not Detected (NotDetected) Ur Propoxyphene Screen Not Detected (NotDetected) Ur Barbiturates Screen Not Detected (NotDetected) U Tricyclic Antidepress Not Detected (NotDetected) Ur Phencyclidine Scrn Not Detected (NotDetected) Ur Amphetamines Screen Not Detected (NotDetected) U Methamphetamines Scrn Not Detected (NotDetected) U Benzodiazepines Scrn Not Detected (NotDetected) Urine Cocaine Screen Not Detected (NotDetected) U Marijuana (THC) Screen Not Detected (NotDetected) Disposition Clinical Impression: Depression Disposition: HOME SELF-CARE Condition: Good Instructions: Depression (ED) Additional Instructions: Please use medications as discussed here in the emergency room and follow-up with psychiatrist please return to emergency room for new concerns. Is patient prescribed a controlled substance at d/c from ED?: No Referrals: Miladis Beyer MD [Primary Care Provider] - 1-2 days Time of Disposition: 14:53
[2017-06-12 12:47] LABS: Amphetamine Screen,Urine Not Detected (NotDetected); Barbiturate Screen,Urine Not Detected (NotDetected); Benzodiazepines Screen,Urine Not Detected (NotDetected); Cocaine Screen,Urine Not Detected (NotDetected); Methadone Screen, Urine Not Detected (NotDetected); Opiate Screen,Urine Not Detected (NotDetected); Oxycodone Screen, Urine Not Detected (NotDetected); Phencyclidine Screen,Urine Not Detected (NotDetected); Tricyclic Antidepressant,Urine Not Detected (NotDetected); Urn Cannabinoid Scrn Not Detected (NotDetected)
[2017-06-12 14:49] VITALS: BP 131/76; PULSE 72; RESP 16
== END 2017-06-12 15:02 | disposition home or self-care (01) ==
LOC: SUPCPDRO 11:06 → EC 11:06
DX: F32.9 Major depressive disorder, single episode, unspecified (principal); F17.200 Nicotine dependence, unspecified, uncomplicated
CPT/HCPCS: 80306; 82075; 99284

== ENCOUNTER 2017-09-24 16:24 | Emergency (ER) | payer OTHER ==
[2017-09-24 16:51] VITALS: PULSE 85; RESP 18; TEMP 98.1
[2017-09-24 18:00] LABS: Basophils # (A) 0.1 k/uL (0-0.2); Basophils % (A) 1 %; Eosinophils # (A) 0.2 k/uL (0-0.7); Eosinophils % (A) 1 %; HCT 43.7 % (34.0-46.0); HGB 14.8 gm/dL (11.4-16.0); Lymphocytes # (A) 2.1 k/uL (1.0-4.8); Lymphocytes % (A) 19 %; MCH 28.3 pg (25.0-35.0); MCHC 33.8 g/dL (31.0-37.0); MCV 83.7 fL (80.0-100.0); Mean Platelet Volume 8.6; Monocytes # (A) 0.7 k/uL (0-1.0); Monocytes % (A) 7 %; Neutrophils # (A) 8.1 k/uL (1.3-7.7); Neutrophils % (A) 72 %; Platelet Count 275 k/uL (150-450); RBC 5.22 m/uL (3.80-5.40); RDW 12.8 % (11.5-15.5); WBC 11.2 k/uL (3.8-10.6)
[2017-09-24 18:07] LABS: Anion Gap 10 mmol/L; Blood Urea Nitrogen 10 mg/dL (7-17); Carbon Dioxide 26 mmol/L (22-30); Chloride 106 mmol/L (98-107); Glucose 91 mg/dL (74-99); Lithium 0.4 mmol/L; Potassium 4.5 mmol/L (3.5-5.1); Sodium 142 mmol/L (137-145)
--- NOTE | 2017-09-24 18:13 | ED ---
Psych HPI - General Chief Complaint: Psychiatric Symptoms Stated Complaint: Depression Time Seen by Provider: 09/24/17 16:52 Source: patient Mode of arrival: ambulatory - History of Present Illness Initial Comments: Patient is a 27-year-old female presenting for psychiatric complaints. She denies any suicidal or homicidal ideations and states that she has been having her medications changed up in the last month or so and she has been increasingly fatigued and sleeping more often. She states that she does not feel depressed but she does not feel happy either and Wednesday come in because she cannot and into her psychiatric appointment until late October. - Related Data Home Medications Medication Instructions Recorded Confirmed Aspirin/Acetaminophen/Caffeine 2 tab PO DAILY PRN 09/24/17 09/24/17 [Excedrin Migraine Caplet] Ergocalciferol (Vitamin D2) 50,000 unit PO Q14D 09/24/17 09/24/17 [Vitamin D2] Zeigler Carbonate 900 mg PO DAILY@1800 09/24/17 09/24/17 Prazosin [Minipress] 1 mg PO HS 09/24/17 09/24/17 risperiDONE [RisperDAL] 2 mg PO DAILY@1800 09/24/17 09/24/17 Allergies Allergy/AdvReac Type Severity Reaction Status Date / Time No Known Allergies Allergy Verified 09/24/17 16:56 Review of Systems ROS Statement: Those systems with pertinent positive or pertinent negative responses have been documented in the HPI. Constitutional: Negative for chills and fever. Positive for fatigue HENT: Negative for congestion. Respiratory: Negative for chest tightness, shortness of breath and wheezing. Negative for cough Cardiovascular: Negative for chest pain and palpitations. Gastrointestinal: Negative for abdominal pain. Negative for abdominal distention , diarrhea, nausea and vomiting. Genitourinary: Negative for dysuria. Musculoskeletal: Negative for back pain, neck pain and neck stiffness. Skin: Negative for color change. Neurological: Negative for dizziness, speech difficulty, weakness and light- headedness. Psychiatric/Behavioral: Negative for agitation and confusion. Positive for anxiety. Negative for suicidal or homicidal ideation. Positive for dysphoria ROS Other: All systems not noted in ROS Statement are negative. Past Medical History Past Medical History: No Reported History Additional Past Medical History / Comment(s): PCOS, migraines History of Any Multi-Drug Resistant Organisms: None Reported Past Surgical History: No Surgical Hx Reported Past Anesthesia/Blood Transfusion Reactions: No Reported Reaction Additional Past Anesthesia/Blood Transfusion Reaction / Comment(s): clausterphobia Past Psychological History: Anxiety, Bipolar, Depression, Panic Disorder, Schizoaffective Disorder Smoking Status: Current every day smoker Past Alcohol Use History: None Reported Past Drug Use History: None Reported - Past Family History Father Additional Family Medical History / Comment(s): General Exam - General Exam Comments Initial Comments: Constitutional: Pt is oriented to person, place, and time. Pt appears well- developed and well-nourished. No distress. HENT: Head: Normocephalic and atraumatic. Eyes: EOM are normal. Neck: Normal range of motion. Neck supple. Cardiovascular: Normal rate, regular rhythm, S1 normal, S2 normal and normal heart sounds. Exam reveals no gallop and no friction rub. No murmur heard. Pulmonary/Chest: Effort normal and breath sounds normal. No tachypnea and no bradypnea. No respiratory distress. No wheezes or rales noted. Abdominal: Soft. Bowel sounds are normal. Pt exhibits no shifting dullness, no distension, no pulsatile liver, no fluid wave, no abdominal bruit and no ascites. There is no tenderness. There is no rigidity, no rebound, no guarding, no tenderness at McBurney's point and negative Walsh's sign. Musculoskeletal: Normal range of motion. Neurological: Pt is alert and oriented to person, place, and time. No cranial nerve deficit. Skin: Skin is warm and dry. No rash noted. Pt is not diaphoretic. No erythema. No pallor. Psychiatric: Pt has a normal mood and affect. Pt behavior is normal. Thought content normal. Limitations: no limitations Course Vital Signs 09/24/17 09/24/17 16:45 19:19 Temperature 98.1 F Pulse Rate 85 85 Respiratory 18 18 Rate Blood Pressure 106/69 121/81 O2 Sat by Pulse 98 100 Oximetry Medical Decision Making - Medical Decision Making Laboratory studies showed that there is no significant leukocytosis and urine test was also negative. Zeigler level was measured at 0.4. Psych services for her consultation evaluated patient at bedside and determined that the patient was safe to be discharged. This was felt to be appropriate as the patient denied any suicidal or homicidal ideations and had good familial support.Explained all labs and diagnostic test results and that we will discharge the patient home and patient is to follow up with PCP in 1-2 days and return to the ED if symptoms worsen. Pt is agreeable to plan. - Lab Data Result diagrams: 09/24/17 17:40 09/24/17 17:40 Lab Results 09/24/17 09/24/17 09/24/17 Range/Units 17:35 17:35 17:40 WBC (3.8-10.6) k/uL RBC (3.80-5.40) m/uL Hgb (11.4-16.0) gm/dL Hct (34.0-46.0) % MCV (80.0-100.0) fL MCH (25.0-35.0) pg MCHC (31.0-37.0) g/dL RDW (11.5-15.5) % Plt Count (150-450) k/uL Neutrophils % % Lymphocytes % % Monocytes % % Eosinophils % % Basophils % % Neutrophils # (1.3-7.7) k/uL Lymphocytes # (1.0-4.8) k/uL Monocytes # (0-1.0) k/uL Eosinophils # (0-0.7) k/uL Basophils # (0-0.2) k/uL Sodium 142 (137-145) mmol/L Potassium 4.5 (3.5-5.1) mmol/L Chloride 106 (98-107) mmol/L Carbon Dioxide 26 (22-30) mmol/L Anion Gap 10 mmol/L BUN 10 (7-17) mg/dL Creatinine 0.80 (0.52-1.04) mg/dL Est GFR (CKD-EPI)AfAm >90 (>60 ml/min/1.73 sqM) Est GFR (CKD-EPI)NonAf >90 (>60 ml/min/1.73 sqM) Glucose 91 (74-99) mg/dL Calcium 10.0 (8.4-10.2) mg/dL Urine HCG, Qual Not Detected (Not Detectd) Urine Opiates Screen Not Detected (NotDetected) Ur Oxycodone Screen Not Detected (NotDetected) Urine Methadone Screen Not Detected (NotDetected) Ur Propoxyphene Screen Not Detected (NotDetected) Ur Barbiturates Screen Not Detected (NotDetected) U Tricyclic Antidepress Not Detected (NotDetected) Ur Phencyclidine Scrn Not Detected (NotDetected) Ur Amphetamines Screen Not Detected (NotDetected) U Methamphetamines Scrn Not Detected (NotDetected) U Benzodiazepines Scrn Not Detected (NotDetected) Zeigler 0.4 mmol/L Urine Cocaine Screen Not Detected (NotDetected) U Marijuana (THC) Screen Not Detected (NotDetected) 09/24/17 Range/Units 17:40 WBC 11.2 H (3.8-10.6) k/uL RBC 5.22 (3.80-5.40) m/uL Hgb 14.8 (11.4-16.0) gm/dL Hct 43.7 (34.0-46.0) % MCV 83.7 (80.0-100.0) fL MCH 28.3 (25.0-35.0) pg MCHC 33.8 (31.0-37.0) g/dL RDW 12.8 (11.5-15.5) % Plt Count 275 (150-450) k/uL Neutrophils % 72 % Lymphocytes % 19 % Monocytes % 7 % Eosinophils % 1 % Basophils % 1 % Neutrophils # 8.1 H (1.3-7.7) k/uL Lymphocytes # 2.1 (1.0-4.8) k/uL Monocytes # 0.7 (0-1.0) k/uL Eosinophils # 0.2 (0-0.7) k/uL Basophils # 0.1 (0-0.2) k/uL Sodium (137-145) mmol/L Potassium (3.5-5.1) mmol/L Chloride (98-107) mmol/L Carbon Dioxide (22-30) mmol/L Anion Gap mmol/L BUN (7-17) mg/dL Creatinine (0.52-1.04) mg/dL Est GFR (CKD-EPI)AfAm (>60 ml/min/1.73 sqM) Est GFR (CKD-EPI)NonAf (>60 ml/min/1.73 sqM) Glucose (74-99) mg/dL Calcium (8.4-10.2) mg/dL Urine HCG, Qual (Not Detectd) Urine Opiates Screen (NotDetected) Ur Oxycodone Screen (NotDetected) Urine Methadone Screen (NotDetected) Ur Propoxyphene Screen (NotDetected) Ur Barbiturates Screen (NotDetected) U Tricyclic Antidepress (NotDetected) Ur Phencyclidine Scrn (NotDetected) Ur Amphetamines Screen (NotDetected) U Methamphetamines Scrn (NotDetected) U Benzodiazepines Scrn (NotDetected) Zeigler mmol/L Urine Cocaine Screen (NotDetected) U Marijuana (THC) Screen (NotDetected) Disposition Clinical Impression: Dysphoric mood Disposition: HOME SELF-CARE Condition: Good Instructions: Depression (ED) Is patient prescribed a controlled substance at d/c from ED?: No Referrals: [facility] [Primary Care Provider] - 1-2 days Time of Disposition: 19:09
[2017-09-24 18:14] LABS: Amphetamine Screen,Urine Not Detected (NotDetected); Barbiturate Screen,Urine Not Detected (NotDetected); Benzodiazepines Screen,Urine Not Detected (NotDetected); Cocaine Screen,Urine Not Detected (NotDetected); Methadone Screen, Urine Not Detected (NotDetected); Opiate Screen,Urine Not Detected (NotDetected); Oxycodone Screen, Urine Not Detected (NotDetected); Phencyclidine Screen,Urine Not Detected (NotDetected); Tricyclic Antidepressant,Urine Not Detected (NotDetected); Urn Cannabinoid Scrn Not Detected (NotDetected)
[2017-09-24 19:20] VITALS: BP 121/81
== END 2017-09-24 19:20 | disposition home or self-care (01) ==
LOC: EC 16:24
DX: F31.9 Bipolar disorder, unspecified (principal); F17.200 Nicotine dependence, unspecified, uncomplicated; Z79.899 Other long term (current) drug therapy
CPT/HCPCS: 36415; 80048; 80178; 80306; 81025; 82075; 85025; 99284

== ENCOUNTER 2017-12-20 13:04 | Inpatient (IN) | payer MEDICAID, OTHER ==
[2017-12-20 14:44] LABS: Amphetamine Screen,Urine Not Detected (NotDetected); Barbiturate Screen,Urine Not Detected (NotDetected); Benzodiazepines Screen,Urine Not Detected (NotDetected); Cocaine Screen,Urine Not Detected (NotDetected); Methadone Screen, Urine Not Detected (NotDetected); Opiate Screen,Urine Not Detected (NotDetected); Oxycodone Screen, Urine Not Detected (NotDetected); Phencyclidine Screen,Urine Not Detected (NotDetected); Tricyclic Antidepressant,Urine Not Detected (NotDetected); Urn Cannabinoid Scrn Not Detected (NotDetected)
--- NOTE | 2017-12-20 16:07 | ED ---
General Adult HPI - General Chief complaint: Psychiatric Symptoms Stated complaint: unable to sleep Time Seen by Provider: 12/20/17 13:42 Source: patient, RN notes reviewed, old records reviewed Mode of arrival: ambulatory Limitations: no limitations - History of Present Illness Initial comments: 27-year-old female history of bipolar depression and schizoaffective disorder presenting with worsening depression. Patient has not slept well for the past 4 days. She has had worsening suicidal thoughts. Patient has had multiple medication changes over the past year. She has been admitted with psychiatric illness in the past. November his anniversary of her father's . At this time year she typically has worsening symptoms. She also has had some issues with her counselor over the past several weeks. Suicide attempt. No physical complaints. - Related Data Home Medications Medication Instructions Recorded Confirmed Ibuprofen [Motrin Ib] 400 mg PO BID 12/20/17 12/20/17 Allergies Allergy/AdvReac Type Severity Reaction Status Date / Time No Known Allergies Allergy Verified 12/20/17 14:13 Review of Systems ROS Statement: Those systems with pertinent positive or pertinent negative responses have been documented in the HPI. ROS Other: All systems not noted in ROS Statement are negative. Past Medical History Past Medical History: No Reported History Additional Past Medical History / Comment(s): PCOS, migraines History of Any Multi-Drug Resistant Organisms: None Reported Past Surgical History: No Surgical Hx Reported Past Anesthesia/Blood Transfusion Reactions: No Reported Reaction Additional Past Anesthesia/Blood Transfusion Reaction / Comment(s): clausterphobia Past Psychological History: Anxiety, Bipolar, Depression, Panic Disorder, Schizoaffective Disorder Smoking Status: Current every day smoker Past Alcohol Use History: None Reported Past Drug Use History: None Reported - Past Family History Father Additional Family Medical History / Comment(s): Mother History Unknown: Yes General Exam Limitations: no limitations General appearance: alert, in no apparent distress Head exam: Present: atraumatic, normocephalic Eye exam: Present: normal appearance, PERRL, EOMI ENT exam: Present: normal exam Neck exam: Present: normal inspection Respiratory exam: Present: normal lung sounds bilaterally. Absent: respiratory distress Cardiovascular Exam: Present: regular rate, normal rhythm GI/Abdominal exam: Present: soft. Absent: distended, tenderness Extremities exam: Present: normal inspection Neurological exam: Present: alert, oriented X3 Psychiatric exam: Present: depressed, suicidal ideation Skin exam: Present: warm, dry, intact. Absent: cyanosis, diaphoretic Course Vital Signs 12/20/17 12/21/17 13:05 03:00 Temperature 97.4 F L Pulse Rate 103 H 71 Respiratory 18 20 Rate Blood Pressure 132/83 125/78 O2 Sat by Pulse 98 98 Oximetry Medical Decision Making - Lab Data Result diagrams: 12/20/17 23:44 12/20/17 23:44 Lab Results 12/20/17 12/20/17 12/20/17 Range/Units 13:46 13:46 23:44 WBC 9.4 (3.8-10.6) k/uL RBC 5.21 (3.80-5.40) m/uL Hgb 14.5 (11.4-16.0) gm/dL Hct 43.3 (34.0-46.0) % MCV 83.0 (80.0-100.0) fL MCH 27.7 (25.0-35.0) pg MCHC 33.4 (31.0-37.0) g/dL RDW 12.4 (11.5-15.5) % Plt Count 334 (150-450) k/uL Neutrophils % 64 % Lymphocytes % 28 % Monocytes % 6 % Eosinophils % 1 % Basophils % 0 % Neutrophils # 6.0 (1.3-7.7) k/uL Lymphocytes # 2.6 (1.0-4.8) k/uL Monocytes # 0.5 (0-1.0) k/uL Eosinophils # 0.1 (0-0.7) k/uL Basophils # 0.0 (0-0.2) k/uL Sodium (137-145) mmol/L Potassium (3.5-5.1) mmol/L Chloride (98-107) mmol/L Carbon Dioxide (22-30) mmol/L Anion Gap mmol/L BUN (7-17) mg/dL Creatinine (0.52-1.04) mg/dL Est GFR (CKD-EPI)AfAm (>60 ml/min/1.73 sqM) Est GFR (CKD-EPI)NonAf (>60 ml/min/1.73 sqM) Glucose (74-99) mg/dL Calcium (8.4-10.2) mg/dL Total Bilirubin (0.2-1.3) mg/dL AST (14-36) U/L ALT (9-52) U/L Alkaline Phosphatase (38-126) U/L Total Protein (6.3-8.2) g/dL Albumin (3.5-5.0) g/dL Urine HCG, Qual Not Detected (Not Detectd) Urine Opiates Screen Not Detected (NotDetected) Ur Oxycodone Screen Not Detected (NotDetected) Urine Methadone Screen Not Detected (NotDetected) Ur Propoxyphene Screen Not Detected (NotDetected) Ur Barbiturates Screen Not Detected (NotDetected) U Tricyclic Antidepress Not Detected (NotDetected) Ur Phencyclidine Scrn Not Detected (NotDetected) Ur Amphetamines Screen Not Detected (NotDetected) U Methamphetamines Scrn Not Detected (NotDetected) U Benzodiazepines Scrn Not Detected (NotDetected) Urine Cocaine Screen Not Detected (NotDetected) U Marijuana (THC) Screen Not Detected (NotDetected) 12/20/17 Range/Units 23:44 WBC (3.8-10.6) k/uL RBC (3.80-5.40) m/uL Hgb (11.4-16.0) gm/dL Hct (34.0-46.0) % MCV (80.0-100.0) fL MCH (25.0-35.0) pg MCHC (31.0-37.0) g/dL RDW (11.5-15.5) % Plt Count (150-450) k/uL Neutrophils % % Lymphocytes % % Monocytes % % Eosinophils % % Basophils % % Neutrophils # (1.3-7.7) k/uL Lymphocytes # (1.0-4.8) k/uL Monocytes # (0-1.0) k/uL Eosinophils # (0-0.7) k/uL Basophils # (0-0.2) k/uL Sodium 139 (137-145) mmol/L Potassium 4.3 (3.5-5.1) mmol/L Chloride 109 H (98-107) mmol/L Carbon Dioxide 20 L (22-30) mmol/L Anion Gap 10 mmol/L BUN 9 (7-17) mg/dL Creatinine 0.69 (0.52-1.04) mg/dL Est GFR (CKD-EPI)AfAm >90 (>60 ml/min/1.73 sqM) Est GFR (CKD-EPI)NonAf >90 (>60 ml/min/1.73 sqM) Glucose 84 (74-99) mg/dL Calcium 9.9 (8.4-10.2) mg/dL Total Bilirubin 1.6 H (0.2-1.3) mg/dL AST 24 (14-36) U/L ALT 43 (9-52) U/L Alkaline Phosphatase 41 (38-126) U/L Total Protein 7.5 (6.3-8.2) g/dL Albumin 4.6 (3.5-5.0) g/dL Urine HCG, Qual (Not Detectd) Urine Opiates Screen (NotDetected) Ur Oxycodone Screen (NotDetected) Urine Methadone Screen (NotDetected) Ur Propoxyphene Screen (NotDetected) Ur Barbiturates Screen (NotDetected) U Tricyclic Antidepress (NotDetected) Ur Phencyclidine Scrn (NotDetected) Ur Amphetamines Screen (NotDetected) U Methamphetamines Scrn (NotDetected) U Benzodiazepines Scrn (NotDetected) Urine Cocaine Screen (NotDetected) U Marijuana (THC) Screen (NotDetected) Disposition Clinical Impression: Depression, Suicidal ideation Disposition: ADMITTED IP TO [facility] Condition: Stable Is patient prescribed a controlled substance at d/c from ED?: No
[2017-12-20] MEDS ORDERED: NICOTINE 7MG/24HR PATCH TRANSDERM STA (16:45)
[2017-12-20] MEDS ORDERED: LORazepam 1 MG TAB PO STA ×2 (18:13→22:37)
[2017-12-20] MEDS ORDERED: diphenhydrAMINE 25 MG CAP PO STA (22:37)
[2017-12-20 23:58] LABS: Basophils % (A) 0 %; Eosinophils # (A) 0.1 k/uL (0-0.7); Eosinophils % (A) 1 %; HCT 43.3 % (34.0-46.0); HGB 14.5 gm/dL (11.4-16.0); Lymphocytes # (A) 2.6 k/uL (1.0-4.8); Lymphocytes % (A) 28 %; MCH 27.7 pg (25.0-35.0); MCHC 33.4 g/dL (31.0-37.0); Mean Platelet Volume 7.4; Monocytes # (A) 0.5 k/uL (0-1.0); Monocytes % (A) 6 %; Neutrophils % (A) 64 %; Platelet Count 334 k/uL (150-450); RBC 5.21 m/uL (3.80-5.40); RDW 12.4 % (11.5-15.5); WBC 9.4 k/uL (3.8-10.6)
[2017-12-21 00:08] LABS: ALT 43 U/L (9-52); AST 24 U/L (14-36); Albumin 4.6 g/dL (3.5-5.0); Alkaline Phosphatase 41 U/L (38-126); Anion Gap 10 mmol/L; Blood Urea Nitrogen 9 mg/dL (7-17); Calcium 9.9 mg/dL (8.4-10.2); Carbon Dioxide 20 mmol/L (22-30); Chloride 109 mmol/L (98-107); Glucose 84 mg/dL (74-99); Potassium 4.3 mmol/L (3.5-5.1); Sodium 139 mmol/L (137-145); Total Bilirubin 1.6 mg/dL (0.2-1.3); Total Protein 7.5 g/dL (6.3-8.2)
--- NOTE | 2017-12-21 08:15 | CDI ---
Documentation Clarification OP Dear Dr. Juliann Stack Please Clinical impression & disposition. Thank you, Castro Grant Plasterer Spot If you have any questions, please contact Site Promotion Agent at [phone] [facility]
[2017-12-21] MEDS ORDERED: LORazepam 1 MG TAB PO PRN (14:52)
[2017-12-21] MEDS ORDERED: MAGNESIUM HYDROXIDE 2,400 MG/10 ML CUP PO PRN (14:52)
[2017-12-21] MEDS ORDERED: MAG HYDROX/AL HYDROX/SIMETH 30 ML CUP PO PRN (14:52)
[2017-12-21] MEDS ORDERED: ZIPRASIDONE 20 MG VIAL IM PRN (14:52)
[2017-12-21] MEDS: ACETAMINOPHEN TAB 325 MG TAB PO PRN (15:37)
[2017-12-21] MEDS: NICOTINE 21MG/24HR PATCH TRANSDERM SCH (15:39)
--- NOTE | 2017-12-21 16:30 | P.MDCNMH ---
History of Present Illness This is a very pleasant 27-year-old female who has history of schizoaffective disorder has been on risperidone currently team in the past. Over the last few days she's been having worsening of her depression and she's been sleepless and poor appetite and very depressed mood and suicidal thoughts and hence she was brought to emergency department and admitted to mental health unit for further evaluation. In discussion with the patient she is very cooperative and pleasant , she reports no known medical problems. She denies any history of asthma, diabetes, hypertension or renal problems. She does not take any medications or [id number] medications or supplements. She denies any dizziness, shortness of breath, cough, chest pain, abdominal pain, changes in the bowel movements, changes in her menses or urinary changes. Review of Systems REVIEW OF SYSTEMS: CONSTITUTIONAL: No fever or chills HEENT: No changes in vision or voice CARDIOVASCULAR: no chest pain or abnormal heart beats, or any swelling in ankles or feet. RESPIRATORY: No wheezing or coughing. GASTROINTESTINAL: No abdominal pain, no nausea no vomiting no constipation or diarrhea GENITOURINARY: no any urinary urgency, frequency or burning, and there has been no blood in her urine. no flank pain. MUSCULOSKELETAL: She notes full range of motion of all her joints without pain or swelling. NEUROLOGICAL: , no headache. no vision changes, or fainting. No numbness or tingling. Past Medical History Past Medical History: No Reported History Additional Past Medical History / Comment(s): PCOS, migraines History of Any Multi-Drug Resistant Organisms: None Reported Past Surgical History: No Surgical Hx Reported Past Anesthesia/Blood Transfusion Reactions: No Reported Reaction Additional Past Anesthesia/Blood Transfusion Reaction / Comment(s): clausterphobia Past Psychological History: Anxiety, Bipolar, Depression, Panic Disorder, Schizoaffective Disorder Smoking Status: Current every day smoker Past Alcohol Use History: None Reported Past Drug Use History: None Reported - Past Family History Father Additional Family Medical History / Comment(s): Medications and Allergies Home Medications Medication Instructions Recorded Confirmed Type Ibuprofen [Motrin Ib] 400 mg PO BID 12/20/17 12/20/17 History Allergies Allergy/AdvReac Type Severity Reaction Status Date / Time No Known Allergies Allergy Verified 12/20/17 14:13 Physical Exam Vitals: Vital Signs Temp Pulse Pulse Resp BP BP Pulse Ox 12/21/17 14:57 98.7 F 86 16 125/70 12/21/17 14:32 97.4 F L 71 20 125/78 98 12/21/17 03:00 125/78 98 Vital Signs: I have reviewed the vital signs. GENERAL: Well-nourished, Well-developed , no apparent distress, cooperative Eyes: PERRL, extraoculry movements intact, clear conjunctiva Head: : Hirsutism, Atraumatic external nose and ears, oropharyngeal mucosa is moist without lesions or exudates Neck: Symmetric, trachea midline, No thyromegaly, no masses or neck vain pulsation, no neck rigidity CVS: +S1/S2, No murmurs or gallops. Peripheral pulses 2+ and equal in all extremities. RESP: Unlabored respiratory effort. Clear to auscultation bilaterally. Abdomen: Bowel sounds present in all 4 quadrants, Soft to palpation, Nontender/ Nondistended, No hepatosplenomegaly, no hernias or masses, no CVA tnderness Musculoskeletal: Extremities w/o deformity, No cyanosis or clubbing, no joint swelling Skin: Warm, Dry. No rashes or lesions Neuro: glass or mirror inspector II-XII grossly intact, motor strenght 5/5 i upper and lower extremities, no clonus, patellar DTRs 2+ and sympetrical Psych: Awake, Alert, & Oriented (AAO) x3 Appropriate mood and affect Cranial Nerve Examination - Cranial Nerves Cranial Nerve I- Olfactory: Intact Cranial Nerve II- Optic: Intact Cranial Nerve III- Oculomotor: Intact Cranial Nerve IV- Trochlear: Intact Cranial Nerve V- Trigeminal: Intact Cranial Nerve - Abducens: Intact Cranial Nerve VII- Facial: Intact Cranial Nerve VIII- Auditory: Intact Cranial Nerve IX- Glossopharyngeal: Intact Cranial Nerve X- Vagus: Intact Cranial Nerve XI- Accessory: Intact Cranial Nerve XII- Hypoglossal: Intact Results CBC & Chem 7: 12/20/17 23:44 12/20/17 23:44 Labs: Abnormal Lab Results - Last 24 Hours (Table) 12/20/17 Range/Units 23:44 Chloride 109 H (98-107) mmol/L Carbon Dioxide 20 L (22-30) mmol/L Total Bilirubin 1.6 H (0.2-1.3) mg/dL Assessment and Plan Plan: 1. Schizoaffective disorder with acute worsening suicidal ideation Admitted to mental health unit Psychiatrically following Suicide precautions 2. 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
[2017-12-22] MEDS: ACETAMINOPHEN TAB 325 MG TAB PO PRN (01:17)
[2017-12-22] MEDS ORDERED: NICOTINE 7MG/24HR PATCH TRANSDERM SCH (09:00)
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
[2017-12-22] MEDS: NICOTINE 21MG/24HR PATCH TRANSDERM SCH ×2 (09:24→09:36)
[2017-12-22 17:48] LABS: Hemoglobin A1C 4.8 % (4.0-6.0)
[2017-12-22] MEDS ORDERED: lamoTRIgine 25 MG TAB PO SCH (21:00)
[2017-12-22] MEDS ORDERED: PALIPERIDONE 3 MG TAB.ER.24 PO SCH (21:00)
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
[2017-12-23] MEDS ORDERED: PALIPERIDONE 6 MG TAB.ER.24 PO SCH (21:00)
[2017-12-23] MEDS ORDERED: lamoTRIgine 25 MG TAB PO SCH (21:00)
[2017-12-23] MEDS: PRAMIPEXOLE 0.5 MG TAB PO SCH (21:02)
[2017-12-24] MEDS: NICOTINE 21MG/24HR PATCH TRANSDERM SCH (07:50)
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
[2017-12-24] MEDS: PRAMIPEXOLE 0.5 MG TAB PO SCH (20:50)
[2017-12-24] MEDS ORDERED: lamoTRIgine 25 MG TAB PO SCH (21:00)
[2017-12-24] MEDS ORDERED: PALIPERIDONE 3 MG TAB.ER.24 PO SCH (21:00)
[2017-12-25] MEDS: NICOTINE 21MG/24HR PATCH TRANSDERM SCH (08:21)
--- NOTE | 2017-12-25 12:29 | P.PN ---
Subjective Progress Note Date: 12/25/17 Principal diagnosis: bipolar affective disorder-depressed 27-year-old female history of bipolar depression and schizoaffective disorder presenting with worsening depression. Patient has not slept well for the past 4 days. She has had worsening suicidal thoughts. Patient has had multiple medication changes over the past year. She has been admitted with psychiatric illness in the past. November his anniversary of her father's . At this time year she typically has worsening symptoms. She also has had some issues with her counselor over the past several weeks. Suicide attempt. No physical complaints. 12/25/2017 Less depressed 5 out of 10 and less anxious 5 out of 10. Poor sleep and restless. Objective - Vital Signs Vital signs: Vital Signs Temp 97.8 F 12/25/17 06:15 Pulse 52 L 12/25/17 06:15 Resp 14 12/25/17 06:15 BP 101/61 12/25/17 06:15 Pulse Ox 98 12/21/17 14:32 - Labs CBC & Chem 7: 12/20/17 23:44 12/20/17 23:44 Assessment and Plan Assessment: Musculoskeletal Examination - Abnormal/Involuntary Movements: [none] Strength: [greater than antigravity (greater than/equal to 3/5) in all extremities:] Muscle Tone: [no impairment Gait: [grossly normal] Station: [grossly normal ] Mental Status Examination - this is a 27-year-old female who looks her stated age and is quiet and restricted and information. She knows her life is becoming hopeless helpless and overwhelmed but stopped medication before because she felt better. She now admits that she needs medications. General Appearance: [ casual, bizarre, appears stated age] Speech/Language: [slow, hesitant, halting, monotone,soft] Attitude/Behavior: [cooperative, guarded, withdrawn, ] Mood: [depressed, anxious, hopelessness] Affect: [flat, blunted constricted] Orientation: [time, person, place situation] Thought Content: [wnl Risk Factors: [Currently has suicidal (ideations, plan) has no Homicidal ( ideations, plan), other] Perception: [wnl Thought Processes: [concrete, circumstantial, tangential, Concentration/Attention Span: impaired] [Per observation and interview with the patient] Recent Memory: [wnl] [1 out of 3 in 3 minutes] Remote Memory: [wnl] [past events, as related history] Intelligence: [ average] [based on history, based on vocabulary, syntax, grammar , and content] Judgement: [poor] [per patient's behavior/history of present illness] Insight: [poor] [understanding severity of illness/history of present illness] Admitting Diagnosis: [Bipolar affective disorder depressed type] Initial Plan of Care: [She is formal voluntary and wants admission the psychiatric unit to restart psychiatric medications. She will be placed on Garza and a garza milieu therapeutic environment with evaluations to be performed by psychiatry, medicine, clinical social work aide, nursing staff, recreational therapy. She will be seen on the unit on 15 minute checks for safety. She be integrated into group process goal setting and be evaluated multidisciplinary team approach on daily basis.] Estimated Length of Stay: [ 2 days] Initial Discharge Plan: [home, [facility], referred to therapist Prognosis: [ guarded] Insight/Judgment: patient's insight and judgment are impaired. Intellectual Functioning: patient's intellectual functioning appears average. Strength/Weakness: Patient has a supportive aunt, stable living situation;] (1) Recurrent major depression-severe Current Visit: Yes Status: Acute Code(s): F33.2 - MAJOR DEPRESSV DISORDER, RECURRENT SEVERE W/O PSYCH FEATURES SNOMED Code(s): 690050825035 Plan: Patient was admitted on a voluntary basis, routine laboratory studies were obtained, patient was placed on routine observation and a medical consultation was requested. Patient was also ordered group and activity therapy. Patient presents with a history of mood swings cycling between manic symptoms and depressive symptoms. Invega Sustena 234 mg mg po qhs; lamictal 100 mg po qhs; mirapex 1 mg po qhs for restless leg Time with Patient: Less than 30
[2017-12-25] MEDS ORDERED: PALIPERIDONE IM 234 MG/1.5 ML SYG IM STA (12:33)
[2017-12-25] MEDS: PRAMIPEXOLE 1 MG TAB PO SCH (20:23)
[2017-12-25] MEDS ORDERED: lamoTRIgine 100 MG TAB PO SCH (21:00)
[2017-12-26] MEDS: NICOTINE 21MG/24HR PATCH TRANSDERM SCH (08:39)
--- NOTE | 2017-12-26 11:07 | P.PN ---
Subjective Progress Note Date: 12/26/17 Principal diagnosis: bipolar affective disorder-depressed 27-year-old female history of bipolar depression and schizoaffective disorder presenting with worsening depression. Patient has not slept well for the past 4 days. She has had worsening suicidal thoughts. Patient has had multiple medication changes over the past year. She has been admitted with psychiatric illness in the past. November his anniversary of her father's . At this time year she typically has worsening symptoms. She also has had some issues with her counselor over the past several weeks. Suicide attempt. No physical complaints. 12/25/2017 Less depressed 5 out of 10 and less anxious 5 out of 10. Poor sleep and restless. 12/26/2017 patient states that she is less depressed today 3 out of 10 and anxiety still is at 5 out of 10. She still complains of poor sleep and low motivation chart reviewed and discussed with nursing staff. Encourage patient to get up and be part of the group activities which is required for them when they are in the psychiatric hospital. Objective - Vital Signs Vital signs: Vital Signs Temp 98.1 F 12/26/17 06:22 Pulse 69 12/26/17 06:22 Resp 14 12/26/17 06:22 BP 111/71 12/26/17 06:22 Pulse Ox 98 12/21/17 14:32 - Labs CBC & Chem 7: 12/20/17 23:44 12/20/17 23:44 Assessment and Plan Assessment: Musculoskeletal Examination - Abnormal/Involuntary Movements: [none] Strength: [greater than antigravity (greater than/equal to 3/5) in all extremities:] Muscle Tone: [no impairment Gait: [grossly normal] Station: [grossly normal ] Mental Status Examination - this is a 27-year-old female who looks her stated age and is quiet and restricted and information. She knows her life is becoming hopeless helpless and overwhelmed but stopped medication before because she felt better. She now admits that she needs medications. General Appearance: [ casual, bizarre, appears stated age] Speech/Language: [slow, hesitant, halting, monotone,soft] Attitude/Behavior: [cooperative, guarded, withdrawn, ] Mood: [depressed, anxious, hopelessness] Affect: [flat, blunted constricted] Orientation: [time, person, place situation] Thought Content: [wnl Risk Factors: [Currently has suicidal (ideations, plan) has no Homicidal ( ideations, plan), other] Perception: [wnl Thought Processes: [concrete, circumstantial, tangential, Concentration/Attention Span: impaired] [Per observation and interview with the patient] Recent Memory: [wnl] [1 out of 3 in 3 minutes] Remote Memory: [wnl] [past events, as related history] Intelligence: [ average] [based on history, based on vocabulary, syntax, grammar , and content] Judgement: [poor] [per patient's behavior/history of present illness] Insight: [poor] [understanding severity of illness/history of present illness] Admitting Diagnosis: [Bipolar affective disorder depressed type] Initial Plan of Care: [She is formal voluntary and wants admission the psychiatric unit to restart psychiatric medications. She will be placed on Garza and a garza milieu therapeutic environment with evaluations to be performed by psychiatry, medicine, hospital social worker, nursing staff, recreational therapy. She will be seen on the unit on 15 minute checks for safety. She be integrated into group process goal setting and be evaluated multidisciplinary team approach on daily basis.] Estimated Length of Stay: [ 2 days] Initial Discharge Plan: [home, [facility], referred to therapist Prognosis: [ guarded] Insight/Judgment: patient's insight and judgment are impaired. Intellectual Functioning: patient's intellectual functioning appears average. Strength/Weakness: Patient has a supportive aunt, stable living situation;] (1) Recurrent major depression-severe Current Visit: Yes Status: Acute Code(s): F33.2 - MAJOR DEPRESSV DISORDER, RECURRENT SEVERE W/O PSYCH FEATURES SNOMED Code(s): 060759239761 Plan: Patient was admitted on a voluntary basis, routine laboratory studies were obtained, patient was placed on routine observation and a medical consultation was requested. Patient was also ordered group and activity therapy. Patient presents with a history of mood swings cycling between manic symptoms and depressive symptoms. Invega Sustena 234 mg mg po qhs; lamictal 200 mg po qam ; mirapex 1 mg po qhs for restless leg Time with Patient: Less than 30
[2017-12-26] MEDS: PRAMIPEXOLE 1 MG TAB PO SCH (20:18)
[2017-12-27] MEDS: lamoTRIgine 100 MG TAB PO SCH (08:51)
[2017-12-27] MEDS: NICOTINE 21MG/24HR PATCH TRANSDERM SCH (08:51)
--- NOTE | 2017-12-27 12:06 | P.PN ---
Subjective Progress Note Date: 12/27/17 Principal diagnosis: bipolar affective disorder-depressed 27-year-old female history of bipolar depression and schizoaffective disorder presenting with worsening depression. Patient has not slept well for the past 4 days. She has had worsening suicidal thoughts. Patient has had multiple medication changes over the past year. She has been admitted with psychiatric illness in the past. November his anniversary of her father's . At this time year she typically has worsening symptoms. She also has had some issues with her counselor over the past several weeks. Suicide attempt. No physical complaints. 12/25/2017 Less depressed 5 out of 10 and less anxious 5 out of 10. Poor sleep and restless. 12/26/2017 patient states that she is less depressed today 3 out of 10 and anxiety still is at 5 out of 10. She still complains of poor sleep and low motivation chart reviewed and discussed with nursing staff. Encourage patient to get up and be part of the group activities which is required for them when they are in the psychiatric hospital. Objective - Vital Signs Vital signs: Vital Signs Temp 97.7 F 12/27/17 06:26 Pulse 62 12/27/17 06:26 Resp 16 12/27/17 06:26 BP 115/81 12/27/17 06:26 Pulse Ox 98 12/21/17 14:32 Intake & Output 12/26/17 12/27/17 12/27/17 18:59 06:59 18:59 Weight 111.7 kg - Labs CBC & Chem 7: 12/20/17 23:44 12/20/17 23:44 Assessment and Plan Assessment: Musculoskeletal Examination - Abnormal/Involuntary Movements: [none] Strength: [greater than antigravity (greater than/equal to 3/5) in all extremities:] Muscle Tone: [no impairment Gait: [grossly normal] Station: [grossly normal ] Mental Status Examination - this is a 27-year-old female who looks her stated age and is quiet and restricted and information. She knows her life is becoming hopeless helpless and overwhelmed but stopped medication before because she felt better. She now admits that she needs medications. General Appearance: [ casual, bizarre, appears stated age] Speech/Language: [slow, hesitant, halting, monotone,soft] Attitude/Behavior: [cooperative, guarded, withdrawn, ] Mood: [depressed, anxious, hopelessness] Affect: [flat, blunted constricted] Orientation: [time, person, place situation] Thought Content: [wnl Risk Factors: [Currently has suicidal (ideations, plan) has no Homicidal ( ideations, plan), other] Perception: [wnl Thought Processes: [concrete, circumstantial, tangential, Concentration/Attention Span: impaired] [Per observation and interview with the patient] Recent Memory: [wnl] [1 out of 3 in 3 minutes] Remote Memory: [wnl] [past events, as related history] Intelligence: [ average] [based on history, based on vocabulary, syntax, grammar , and content] Judgement: [poor] [per patient's behavior/history of present illness] Insight: [poor] [understanding severity of illness/history of present illness] Admitting Diagnosis: [Bipolar affective disorder depressed type] Initial Plan of Care: [She is formal voluntary and wants admission the psychiatric unit to restart psychiatric medications. She will be placed on Garza and a garza milieu therapeutic environment with evaluations to be performed by psychiatry, medicine, [employer], nursing staff, recreational therapy. She will be seen on the unit on 15 minute checks for safety. She be integrated into group process goal setting and be evaluated multidisciplinary team approach on daily basis.] Estimated Length of Stay: [ 2 days] Initial Discharge Plan: [[place], [facility], referred to therapist Prognosis: [ guarded] Insight/Judgment: patient's insight and judgment are impaired. Intellectual Functioning: patient's intellectual functioning appears average. Strength/Weakness: Patient has a supportive aunt, stable living situation;] (1) Recurrent major depression-severe Current Visit: Yes Status: Acute Code(s): F33.2 - MAJOR DEPRESSV DISORDER, RECURRENT SEVERE W/O PSYCH FEATURES SNOMED Code(s): 864584167006 Plan: Patient was admitted on a voluntary basis, routine laboratory studies were obtained, patient was placed on routine observation and a medical consultation was requested. Patient was also ordered group and activity therapy. Patient presents with a history of mood swings cycling between manic symptoms and depressive symptoms. Invega Sustena 234 mg mg po qhs; lamictal 200 mg po qam ; mirapex 1 mg po qhs for restless leg Time with Patient: Less than 30
[2017-12-27] MEDS: ACETAMINOPHEN TAB 325 MG TAB PO PRN (17:08)
[2017-12-27] MEDS: PRAMIPEXOLE 1 MG TAB PO SCH (19:42)
[2017-12-28 06:31] VITALS: BP 135/74; PULSE 74; RESP 18; TEMP 97.8
[2017-12-28] MEDS: NICOTINE 21MG/24HR PATCH TRANSDERM SCH (08:19)
[2017-12-28] MEDS: lamoTRIgine 100 MG TAB PO SCH (08:20)
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
== END 2017-12-28 15:50 | disposition home or self-care (01) | DRG 885 ==
LOC: EC 13:04 → 3MHU 12-21 14:07
PROVIDERS: ADMIT Psychiatry & Neurology Psychiatry; ATTEND Psychiatry & Neurology Psychiatry
DX: F33.2 Major depressive disorder, recurrent severe without psychotic features (principal); R45.851 Suicidal ideations; E28.2 Polycystic ovarian syndrome; F25.9 Schizoaffective disorder, unspecified; F41.0 Panic disorder [episodic paroxysmal anxiety]; Z62.810 Personal history of physical and sexual abuse in childhood; T43.96XA Underdosing of unspecified psychotropic drug, initial encounter; Z91.128 Patient's intentional underdosing of medication regimen for other reason; Z91.410 Personal history of adult physical and sexual abuse; Z65.3 Problems related to other legal circumstances; Z79.1 Long term (current) use of non-steroidal anti-inflammatories (NSAID); F11.11 Opioid abuse, in remission; F12.11 Cannabis abuse, in remission; F13.11 Sedative, hypnotic or anxiolytic abuse, in remission; F40.240 Claustrophobia; F41.9 Anxiety disorder, unspecified
CPT/HCPCS: 36415; 80053; 80061; 80306; 81025; 82075; 83036; 84443; 85025; 99285

== ENCOUNTER 2018-01-08 23:31 | Emergency (ER) | payer OTHER ==
[2018-01-09 00:25] VITALS: RESP 16
[2018-01-09] MEDS ORDERED: ACETAMINOPHEN TAB 500 MG TAB PO STA (01:19)
[2018-01-09] MEDS ORDERED: IBUPROFEN 800 MG TAB PO STA (01:20)
[2018-01-09 02:28] VITALS: PULSE 101; TEMP 100.4
[2018-01-09 02:58] LABS: ALT 35 U/L (9-52); AST 21 U/L (14-36); Albumin 4.1 g/dL (3.5-5.0); Alkaline Phosphatase 55 U/L (38-126); Anion Gap 11 mmol/L; Blood Urea Nitrogen 8 mg/dL (7-17); Calcium 9.6 mg/dL (8.4-10.2); Carbon Dioxide 21 mmol/L (22-30); Chloride 107 mmol/L (98-107); Glucose 94 mg/dL (74-99); Sodium 139 mmol/L (137-145); Total Bilirubin 1.4 mg/dL (0.2-1.3); Total Protein 6.7 g/dL (6.3-8.2)
[2018-01-09 03:10] LABS: Basophils % (A) 1 %; Eosinophils # (A) 0.1 k/uL (0-0.7); Eosinophils % (A) 3 %; HCT 39.4 % (34.0-46.0); HGB 13.1 gm/dL (11.4-16.0); Lymphocytes # (A) 0.7 k/uL (1.0-4.8); Lymphocytes % (A) 17 %; MCH 27.5 pg (25.0-35.0); MCHC 33.3 g/dL (31.0-37.0); MCV 82.5 fL (80.0-100.0); Mean Platelet Volume 7.7; Monocytes # (A) 0.3 k/uL (0-1.0); Monocytes % (A) 8 %; Neutrophils # (A) 2.8 k/uL (1.3-7.7); Neutrophils % (A) 71 %; Platelet Count 194 k/uL (150-450); RBC 4.78 m/uL (3.80-5.40); RDW 12.9 % (11.5-15.5); WBC 3.9 k/uL (3.8-10.6)
[2018-01-09 04:10] VITALS: BP 126/73
--- NOTE | 2018-01-09 04:15 | ED ---
General Adult HPI - General Source: patient, RN notes reviewed Mode of arrival: ambulatory Limitations: no limitations <Yfn Schrader - Last Filed: 01/09/18 04:08> <Renzo Mccain - Last Filed: 01/10/18 23:31> - General Chief complaint: Skin/Abscess/Foreign Body Stated complaint: Rash Time Seen by Provider: 01/09/18 00:46 - History of Present Illness Initial comments: 27-year-old female presents to the emergency department for a chief complaint of rash 3 days. Patient states this rash started on the her ankles and gradually progress to the rest of her body. She denies any significant pruritus. She states the rash is generally on bothersome. She does admit to some anterior bilateral neck pain. Patient denies any posterior or midline neck pain. Patient denies headache. Patient states that today she noticed she had a fever so presented to the emergency department. Patient denies cough, congestion, urinary symptoms, diarrhea, abdominal pain. Patient states she has started on multiple new psych medications in the past week. She states she was given 2 new medications on Wednesday and developed a rash on Wednesday. She states this may be a reaction to one of the medications. Patient has no other complaints at this time including shortness of breath, chest pain, abdominal pain, nausea or vomiting, headache, or visual changes. (Yfn Schrader) - Related Data Home Medications Medication Instructions Recorded Confirmed Paliperidone IM [Invega Sustenna] 156 mg IM [id number] 01/09/18 01/09/18 Pramipexole Di-HCl [Pramipexole 1.5 mg PO 01/09/18 Dihydrochloride] traZODone HCL 50 mg PO HS 01/09/18 01/09/18 Previous Rx's Medication Instructions Recorded Pramipexole [Mirapex] 1 mg PO 2100 30 Days #30 tab 12/28/17 lamoTRIgine [LaMICtal] 200 mg PO 0900 30 Days #30 tab 12/28/17 Allergies Allergy/AdvReac Type Severity Reaction Status Date / Time No Known Allergies Allergy Verified 01/09/18 00:25 Review of Systems ROS Other: All systems not noted in ROS Statement are negative. <Yfn Schrader - Last Filed: 01/09/18 04:08> ROS Other: All systems not noted in ROS Statement are negative. <Renzo Mccain - Last Filed: 01/10/18 23:31> ROS Statement: Those systems with pertinent positive or pertinent negative responses have been documented in the HPI. Past Medical History Past Medical History: No Reported History Additional Past Medical History / Comment(s): PCOS, migraines History of Any Multi-Drug Resistant Organisms: None Reported Past Surgical History: No Surgical Hx Reported Past Anesthesia/Blood Transfusion Reactions: No Reported Reaction Additional Past Anesthesia/Blood Transfusion Reaction / Comment(s): clausterphobia Past Psychological History: Anxiety, Bipolar, Depression, Panic Disorder, Schizoaffective Disorder Smoking Status: Current every day smoker Past Alcohol Use History: None Reported Past Drug Use History: None Reported - Past Family History Father Additional Family Medical History / Comment(s): Mother History Unknown: Yes <Yfn Schrader - Last Filed: 01/09/18 04:08> General Exam Limitations: no limitations General appearance: alert, in no apparent distress Head exam: Present: atraumatic, normocephalic, normal inspection Eye exam: Present: normal appearance, PERRL, EOMI. Absent: scleral icterus, conjunctival injection, periorbital swelling ENT exam: Present: normal exam, normal oropharynx (Uvula midline, not erythematous), mucous membranes moist, TM's normal bilaterally, normal external ear exam Neck exam: Present: normal inspection, full ROM. Absent: tenderness, meningismus, lymphadenopathy Respiratory exam: Present: normal lung sounds bilaterally. Absent: respiratory distress, wheezes, rales, rhonchi, stridor Cardiovascular Exam: Present: regular rate, normal rhythm, normal heart sounds. Absent: systolic murmur, diastolic murmur, rubs, gallop, clicks GI/Abdominal exam: Present: soft, normal bowel sounds. Absent: distended, tenderness, guarding, rebound, rigid Neurological exam: Present: alert, oriented X3, CN II-XII intact Psychiatric exam: Present: normal affect, normal mood Skin exam: Present: rash (Raised erythematous macular rash noted to bilateral anterior thighs and ankles. Patient also has this rash noted on upper arms.) <Yfn Schrader - Last Filed: 01/09/18 04:08> Vital Signs 01/09/18 01/09/1801/09/18 00:21 02:25 03:00 Temperature 100.3 F H 100.4 F H Pulse Rate 111 H 101 H Respiratory 16 16 Rate Blood Pressure 124/82 136/81 117/60 O2 Sat by Pulse 96 96 96 Oximetry 01/09/18 04:00 Temperature Pulse Rate Respiratory Rate Blood Pressure 126/73 O2 Sat by Pulse 96 Oximetry Medical Decision Making - Lab Data Result diagrams: 01/09/18 02:25 01/09/18 02:25 <Yfn Schrader - Last Filed: 01/09/18 04:08> - Lab Data Result diagrams: 01/09/18 02:25 01/09/18 02:25 <Renzo Mccain - Last Filed: 01/10/18 23:31> - Medical Decision Making 27-year-old female presents to the emergency department for a chief complaint of rash 3 days. Patient also noticed a fever today so presented to the emergency department. She has mild anterior neck pain along lymph nodes. She denies any other complaints at this time. Patient has started on multiple new medications in the past few weeks with 2 being in within the past 4 days. Patient states she was fully immunized as a child. Patient does have a low- grade fever of 100.3 here in the emergency department. The rash is erythematous and macular noted on the bilateral upper and lower extremities. Exam is otherwise unremarkable. CBC and CMP are unremarkable. Strep was negative. At this time viral exanthem is more likely than medication reaction due to presentation of the rash. Dr. Mccain also visualized the rash and saw the patient. Patient will follow up with primary care in 1-2 days. She'll return here if she has any worsening symptoms. (Yfn Schrader) I saw this patient in conjunction with the physician medical assistant cardiology. I performed independent history and physical exam. Agree with case management. (Renzo Mccain) - Lab Data Lab Results 01/09/18 01/09/18 01/09/18 Range/Units 01:25 02:25 02:25 WBC 3.9 (3.8-10.6) k/uL RBC 4.78 (3.80-5.40) m/uL Hgb 13.1 (11.4-16.0) gm/dL Hct 39.4 (34.0-46.0) % MCV 82.5 (80.0-100.0) fL MCH 27.5 (25.0-35.0) pg MCHC 33.3 (31.0-37.0) g/dL RDW 12.9 (11.5-15.5) % Plt Count 194 (150-450) k/uL Neutrophils % 71 % Lymphocytes % 17 % Monocytes % 8 % Eosinophils % 3 % Basophils % 1 % Neutrophils # 2.8 (1.3-7.7) k/uL Lymphocytes # 0.7 L (1.0-4.8) k/uL Monocytes # 0.3 (0-1.0) k/uL Eosinophils # 0.1 (0-0.7) k/uL Basophils # 0.0 (0-0.2) k/uL Sodium 139 (137-145) mmol/L Potassium 4.0 (3.5-5.1) mmol/L Chloride 107 (98-107) mmol/L Carbon Dioxide 21 L (22-30) mmol/L Anion Gap 11 mmol/L BUN 8 (7-17) mg/dL Creatinine 0.78 (0.52-1.04) mg/dL Est GFR (CKD-EPI)AfAm >90 (>60 ml/min/1.73 sqM) Est GFR (CKD-EPI)NonAf >90 (>60 ml/min/1.73 sqM) Glucose 94 (74-99) mg/dL Calcium 9.6 (8.4-10.2) mg/dL Ferritin (10.0-291.0) ng/mL Total Bilirubin 1.4 H (0.2-1.3) mg/dL AST 21 (14-36) U/L ALT 35 (9-52) U/L Alkaline Phosphatase 55 (38-126) U/L Total Protein 6.7 (6.3-8.2) g/dL Albumin 4.1 (3.5-5.0) g/dL Group A Strep Rapid Negative (Negative) 01/09/18 Range/Units 02:25 WBC (3.8-10.6) k/uL RBC (3.80-5.40) m/uL Hgb (11.4-16.0) gm/dL Hct (34.0-46.0) % MCV (80.0-100.0) fL MCH (25.0-35.0) pg MCHC (31.0-37.0) g/dL RDW (11.5-15.5) % Plt Count (150-450) k/uL Neutrophils % % Lymphocytes % % Monocytes % % Eosinophils % % Basophils % % Neutrophils # (1.3-7.7) k/uL Lymphocytes # (1.0-4.8) k/uL Monocytes # (0-1.0) k/uL Eosinophils # (0-0.7) k/uL Basophils # (0-0.2) k/uL Sodium (137-145) mmol/L Potassium (3.5-5.1) mmol/L Chloride (98-107) mmol/L Carbon Dioxide (22-30) mmol/L Anion Gap mmol/L BUN (7-17) mg/dL Creatinine (0.52-1.04) mg/dL Est GFR (CKD-EPI)AfAm (>60 ml/min/1.73 sqM) Est GFR (CKD-EPI)NonAf (>60 ml/min/1.73 sqM) Glucose (74-99) mg/dL Calcium (8.4-10.2) mg/dL Ferritin 126.9 (10.0-291.0) ng/mL Total Bilirubin (0.2-1.3) mg/dL AST (14-36) U/L ALT (9-52) U/L Alkaline Phosphatase (38-126) U/L Total Protein (6.3-8.2) g/dL Albumin (3.5-5.0) g/dL Group A Strep Rapid (Negative) Disposition Is patient prescribed a controlled substance at d/c from ED?: No Time of Disposition: 04:13 <Yfn Schrader - Last Filed: 01/09/18 04:08> <Renzo Mccain - Last Filed: 01/10/18 23:31> Clinical Impression: Rash Disposition: HOME SELF-CARE Condition: Good Instructions: Acute Rash (ED), Viral Exanthem (ED) Additional Instructions: Please take Motrin and Tylenol for fever. Please follow-up with primary care physician in 1-2 days. Return here if you have any worsening symptoms. Referrals: [facility] [Primary Care Provider] - 1-2 days
== END 2018-01-09 04:18 | disposition home or self-care (01) ==
LOC: EC 23:31 → EEVIPCON 23:31 → EC 01-09 04:18
DX: R21 Rash and other nonspecific skin eruption (principal); R50.9 Fever, unspecified; M54.2 Cervicalgia; F25.9 Schizoaffective disorder, unspecified; F31.9 Bipolar disorder, unspecified; F41.9 Anxiety disorder, unspecified; F17.200 Nicotine dependence, unspecified, uncomplicated; Z79.899 Other long term (current) drug therapy
CPT/HCPCS: 36415; 80053; 82728; 85025; 87081; 87430; 99283

== ENCOUNTER 2018-11-23 14:56 | Inpatient (IN) | payer MEDICAID, OTHER ==
--- NOTE | 2018-11-23 15:44 | ED ---
Psych HPI - General Chief Complaint: Psychiatric Symptoms Stated Complaint: Mental Health, Oral Pain Time Seen by Provider: 11/23/18 15:27 Source: patient Mode of arrival: ambulatory - History of Present Illness Initial Comments: 28-year-old female presenting for fever changes patient is a coming by her guardian. Patient states patient has been de la cruz. She states she has been not take her meds and appears manic. She states that patient is also paranoid thinking that people are out to get her watching her following her. Patient does have history of previous diagnosed schizophrenia. They state that she was then diagnosed with PTSD and they had dropped a diagnosis of schizophrenia. She stated the patient seemed to be doing well on Wellbutrin. However of her urine November when patient's father much medical event patient seems to decline in mental status. Given patient was not compliant medications and very paranoid guardian brought in for evaluation. Of note patient is also complaining of right lower dental pain. GI facial swelling fluid symptoms fever sling both tongue or below the angle of mandible. No other complaints patient denies any suicidal homicidal ideation. Patient is agreeable to evaluation. Cooperative. - Related Data Home Medications Medication Instructions Recorded Confirmed Cholecalciferol [Vitamin D3 (25 5,000 unit PO DAILY 11/23/18 11/23/18 Mcg = 1000 Iu)] buPROPion XL [Wellbutrin Xl] 150 mg PO DAILY 11/23/18 11/23/18 Allergies Allergy/AdvReac Type Severity Reaction Status Date / Time No Known Allergies Allergy Verified 11/23/18 15:20 Review of Systems ROS Statement: Those systems with pertinent positive or pertinent negative responses have been documented in the HPI. ROS Other: All systems not noted in ROS Statement are negative. Past Medical History Past Medical History: No Reported History Additional Past Medical History / Comment(s): PCOS, migraines History of Any Multi-Drug Resistant Organisms: None Reported Past Surgical History: No Surgical Hx Reported Past Anesthesia/Blood Transfusion Reactions: No Reported Reaction Additional Past Anesthesia/Blood Transfusion Reaction / Comment(s): clauster phobia Past Psychological History: Anxiety, Bipolar, Depression, Panic Disorder, Schizoaffective Disorder Smoking Status: Current every day smoker Past Alcohol Use History: None Reported Past Drug Use History: None Reported - Past Family History Father Additional Family Medical History / Comment(s): Mother History Unknown: Yes General Exam - General Exam Comments Initial Comments: General: The patient is awake and alert, in no distress Eye: +3 mm pupils are equal, round and reactive to light, extra-ocular movements are intact. No nystagmus. There is normal conjunctiva bilaterally. No signs of icterus. Ears, nose, mouth and throat: There are moist mucous membranes and no oral lesions. Pain to percussion of tooth #30. No crack dentition. No fluctuant abscess. No swelling below the tongue and no pain to palpation under the tongue swelling below the angle of the mandible or facial swelling. Neck: The neck is supple, there is no tenderness or JVD. Cardiovascular: There is a regular rate and rhythm. No murmur, rub or gallop is appreciated. Respiratory: Lungs are clear to auscultation, respirations are non-labored, breath sounds are equal. No wheezes, stridor, rales, or rhonchi. Gastrointestinal: Soft, non-distended, non-tender abdomen without masses or organomegaly noted. There is no rebound or guarding present. Musculoskeletal: Normal ROM, no tenderness. Strength 5/5. Sensation intact. Radial pulses equal bilaterally 2+. Neurological: A&O x 3. CN II-XII intact grossly, There are no obvious motor or sensory deficits. Coordination appears grossly intact. Speech is normal. Skin: Skin is warm and dry and no rashes or lesions are noted. Psychiatric: Cooperative, flat affect, pressured speech. Limitations: no limitations Course Vital Signs 11/23/18 11/23/18 15:07 17:46 Temperature 98.3 F Pulse Rate 88 76 Respiratory 18 16 Rate Blood Pressure 129/84 132/76 O2 Sat by Pulse 98 99 Oximetry Medical Decision Making - Medical Decision Making 28-year-old female presenting for multiple complaints. Patient claims dental pain. No obvious abscess possibility of periapical abscess patient given Pen- Vee K. Patient has history of possible diagnosis schizophrenia. Patient does appear paranoid from history taking. Patient has been off his medications. Patient is agreeable to evaluation as well as admission. Patient medically cleared for psychiatric evaluation. EPS recommended admission. Family agreeable patient be transferred to psychiatric facility for him [place] - Lab Data Result diagrams: 11/23/18 17:13 11/23/18 17:13 Lab Results 10/16/19 10/16/19 10/16/19 Range/Units 17:13 17:13 17:13 WBC 8.7 (3.8-10.6) k/uL RBC 5.35 (3.80-5.40) m/uL Hgb 14.7 (11.4-16.0) gm/dL Hct 45.4 (34.0-46.0) % MCV 84.8 (80.0-100.0) fL MCH 27.4 (25.0-35.0) pg MCHC 32.4 (31.0-37.0) g/dL RDW 12.8 (11.5-15.5) % Plt Count 286 (150-450) k/uL Neutrophils % 70 % Lymphocytes % 21 % Monocytes % 5 % Eosinophils % 2 % Basophils % 1 % Neutrophils # 6.0 (1.3-7.7) k/uL Lymphocytes # 1.8 (1.0-4.8) k/uL Monocytes # 0.4 (0-1.0) k/uL Eosinophils # 0.2 (0-0.7) k/uL Basophils # 0.1 (0-0.2) k/uL Sodium 141 (137-145) mmol/L Potassium 4.2 (3.5-5.1) mmol/L Chloride 106 (98-107) mmol/L Carbon Dioxide 25 (22-30) mmol/L Anion Gap 10 mmol/L BUN 15 (7-17) mg/dL Creatinine 0.80 (0.52-1.04) mg/dL Est GFR (CKD-EPI)AfAm >90 (>60 ml/min/1.73 sqM) Est GFR (CKD-EPI)NonAf >90 (>60 ml/min/1.73 sqM) Glucose 92 (74-99) mg/dL Calcium 10.2 (8.4-10.2) mg/dL Total Bilirubin 0.9 (0.2-1.3) mg/dL AST 22 (14-36) U/L ALT 25 (9-52) U/L Alkaline Phosphatase 69 (38-126) U/L Total Protein 7.7 (6.3-8.2) g/dL Albumin 4.7 (3.5-5.0) g/dL Urine Color Light Yellow Urine Appearance Clear (Clear) Urine pH 6.5 (5.0-8.0) Ur Specific Gregory 1.014 (1.001-1.035) Urine Protein Negative (Negative) Urine Glucose (UA) Negative (Negative) Urine Ketones Negative (Negative) Urine Blood Moderate H (Negative) Urine Nitrite Negative (Negative) Urine Bilirubin Negative (Negative) Urine Urobilinogen <2.0 (<2.0) mg/dL Ur Leukocyte Esterase Small H (Negative) Urine RBC 4 (0-5) /hpf Urine WBC 2 (0-5) /hpf Ur Squamous Epith Cells 1 (0-4) /hpf Urine Bacteria Few H (None) /hpf Urine Mucus Rare H (None) /hpf Urine Opiates Screen Not Detected (NotDetected) Ur Oxycodone Screen Not Detected (NotDetected) Urine Methadone Screen Not Detected (NotDetected) Ur Propoxyphene Screen Not Detected (NotDetected) Ur Barbiturates Screen Not Detected (NotDetected) U Tricyclic Antidepress Not Detected (NotDetected) Ur Phencyclidine Scrn Not Detected (NotDetected) Ur Amphetamines Screen Not Detected (NotDetected) U Methamphetamines Scrn Not Detected (NotDetected) U Benzodiazepines Scrn Not Detected (NotDetected) Urine Cocaine Screen Not Detected (NotDetected) U Marijuana (THC) Screen Not Detected (NotDetected) Disposition Clinical Impression: Paranoia, Noncompliance with medication regimen, Anxiety Disposition: TRANSFER TO PSYCH HOSP/UNIT Condition: Stable Is patient prescribed a controlled substance at d/c from ED?: No Referrals: [facility] [Primary Care Provider] - 1-2 days Time of Disposition: 20:53 Decision to Admit Reason: Admit from EC Decision Date: 11/23/18 Decision Time: 20:53
[2018-11-23] MEDS ORDERED: PENICILLIN V POTASSIUM 250 MG TAB PO STA (16:40)
[2018-11-23 17:25] LABS: Basophils # (A) 0.1 k/uL (0-0.2); Basophils % (A) 1 %; Eosinophils # (A) 0.2 k/uL (0-0.7); Eosinophils % (A) 2 %; HCT 45.4 % (34.0-46.0); HGB 14.7 gm/dL (11.4-16.0); Lymphocytes # (A) 1.8 k/uL (1.0-4.8); Lymphocytes % (A) 21 %; MCH 27.4 pg (25.0-35.0); MCHC 32.4 g/dL (31.0-37.0); MCV 84.8 fL (80.0-100.0); Mean Platelet Volume 8.1; Monocytes # (A) 0.4 k/uL (0-1.0); Monocytes % (A) 5 %; Neutrophils % (A) 70 %; Platelet Count 286 k/uL (150-450); RBC 5.35 m/uL (3.80-5.40); RDW 12.8 % (11.5-15.5); WBC 8.7 k/uL (3.8-10.6)
[2018-11-23 17:43] LABS: Amphetamine Screen,Urine Not Detected (NotDetected); Barbiturate Screen,Urine Not Detected (NotDetected); Benzodiazepines Screen,Urine Not Detected (NotDetected); Cocaine Screen,Urine Not Detected (NotDetected); Methadone Screen, Urine Not Detected (NotDetected); Opiate Screen,Urine Not Detected (NotDetected); Oxycodone Screen, Urine Not Detected (NotDetected); Phencyclidine Screen,Urine Not Detected (NotDetected); Tricyclic Antidepressant,Urine Not Detected (NotDetected); Urn Cannabinoid Scrn Not Detected (NotDetected)
[2018-11-23 17:45] LABS: Appearance,Urine Clear (Clear); Bacteria,Urine Few /hpf; Bilirubin,Urine Negative (Negative); Blood,Urine Moderate (Negative); Color,Urine Light Yellow; Glucose,Urine (UA) Negative (Negative); Ketones,Urine Negative (Negative); Leukocyte Esterase,Urine Small (Negative); Mucus,Urine Rare /hpf; Nitrite,Urine Negative (Negative); PH, Urine 6.5 (5.0-8.0); Protein,Urine Negative (Negative); RBC,Urine 4 /hpf (0-5); Specific Gravity,Urine 1.014 (1.001-1.035); Squamous Epithelial Cell,Urine 1 /hpf (0-4); Urobilinogen,Urine <2.0 mg/dL (<2.0); WBC,Urine 2 /hpf (0-5)
[2018-11-23 17:46] LABS: ALT 25 U/L (9-52); AST 22 U/L (14-36); African American GFR (CKD) >90 (>60 ml/min/1.73 sqM); Albumin 4.7 g/dL (3.5-5.0); Alkaline Phosphatase 69 U/L (38-126); Anion Gap 10 mmol/L; Blood Urea Nitrogen 15 mg/dL (7-17); Calcium 10.2 mg/dL (8.4-10.2); Carbon Dioxide 25 mmol/L (22-30); Chloride 106 mmol/L (98-107); Glucose 92 mg/dL (74-99); Potassium 4.2 mmol/L (3.5-5.1); Sodium 141 mmol/L (137-145); Total Bilirubin 0.9 mg/dL (0.2-1.3); Total Protein 7.7 g/dL (6.3-8.2)
[2018-11-23] MEDS ORDERED: ALPRAZolam 0.5 MG TAB PO STA (18:41)
[2018-11-23] MEDS ORDERED: LORazepam 1 MG TAB PO PRN (22:19)
[2018-11-23] MEDS ORDERED: ZIPRASIDONE 20 MG VIAL IM PRN (22:19)
[2018-11-23] MEDS ORDERED: MAGNESIUM HYDROXIDE 2,400 MG/10 ML CUP PO PRN (22:19)
[2018-11-23] MEDS ORDERED: ACETAMINOPHEN TAB 325 MG TAB PO PRN (22:19)
[2018-11-23] MEDS ORDERED: MAG HYDROX/AL HYDROX/SIMETH 30 ML CUP PO PRN (22:19)
[2018-11-23] MEDS: NICOTINE 21MG/24HR PATCH TRANSDERM SCH (23:52)
--- NOTE | 2018-11-24 07:02 | P.MDCNMH ---
History of Present Illness H&P Date: 11/24/18 Chief Complaint: manic behavior 28-year-old female with history of schizophrenia and PTSD and anxiety patient was brought into the hospital by her guardian due to noncompliance with medication and abnormal behavior. She's been expressing manic behaviors she has stopped her welbutrin Which she was doing well on it. she has been showing paranoid behavior. Otherwise currently she is denying any suicidal or homicidal ideation she denies any fevers chills sore throat and coughing chest pain trouble breathing denies any abdominal pain nausea vomiting denies any urinary changes or bowel habbit changes patient labs were reviewed and unremarkable. Review of Systems Pertinent positives as noted in HPI. All other systems were reviewed and are negative Past Medical History Past Medical History: No Reported History Additional Past Medical History / Comment(s): PCOS, migraines History of Any Multi-Drug Resistant Organisms: None Reported Past Surgical History: No Surgical Hx Reported Past Anesthesia/Blood Transfusion Reactions: No Reported Reaction Additional Past Anesthesia/Blood Transfusion Reaction / Comment(s): clausterphobia Past Psychological History: Anxiety, Bipolar, Depression, Panic Disorder, Schizoaffective Disorder Smoking Status: Current every day smoker Past Alcohol Use History: None Reported Past Drug Use History: None Reported - Past Family History Father Additional Family Medical History / Comment(s): Mother History Unknown: Yes Medications and Allergies Home Medications Medication Instructions Recorded Confirmed Type Cholecalciferol [Vitamin D3 (25 5,000 unit PO DAILY 11/23/18 11/23/18 History Mcg = 1000 Iu)] buPROPion XL [Wellbutrin Xl] 150 mg PO DAILY 11/23/18 11/23/18 History Allergies Allergy/AdvReac Type Severity Reaction Status Date / Time No Known Allergies Allergy Verified 11/23/18 15:20 Physical Exam Vitals: Vital Signs Temp Pulse Pulse Resp BP BP Pulse Ox 11/24/18 04:03 97.5 F L 78 18 126/83 100 11/23/18 17:46 76 16 132/76 99 11/23/18 15:07 98.3 F 88 18 129/84 98 Intake and Output 11/23/18 11/23/18 11/24/18 14:59 22:59 06:59 Other: Weight 109.769 kg 107.093 kg Constitutional: No acute distress, conversant, pleasant Eyes: Anicteric sclerae, moist conjunctiva, no lid-lag Pupils equal round reactive to light ENMT: NC/AT Oropharynx clear, no erythema, exudates Neck: Supple, FROM, no masses, or JVD No carotid bruits No thyromegaly Lungs: Clear to auscultation Clear to percussion Normal respiratory effort, no accessory muscle use Cardiovascular: Heart regular in rate and rhythm, No murmurs, gallops, or rubs No peripheral edema Abdominal: Soft Nontender, no guarding, rebound or rigidity Abdomen moving with respiration Normoactive bowel sounds No hepatomegaly, No splenomegaly No palpable mass No abdominal wall hernia noted Skin: Normal temperature, tone, texture, turgor No induration No subcutaneous nodules No rash, lesions No ulcers Extremities: No digital cyanosis No clubbing Pedal pulses intact and symmetrical Radial pulses intact and symmetrical No calf tenderness Psychiatric: Alert and oriented to person, place and time depressed affect poor judgement Neuro Muscles Strength 5/5 in all 4 extremities Sensation to light touch grossly present throughout Cranial nerves II-XII grossly intact No focal sensory deficits Lymphatics: no palpable cervical or supraclavicular , or inguinal lymph nodes Cranial Nerve Examination - Cranial Nerves Cranial Nerve II- Optic: Intact Cranial Nerve III- Oculomotor: Intact Cranial Nerve IV- Trochlear: Intact Cranial Nerve V- Trigeminal: Intact Cranial Nerve - Abducens: Intact Cranial Nerve VII- Facial: Intact Cranial Nerve VIII- Auditory: Intact Cranial Nerve IX- Glossopharyngeal: Intact Cranial Nerve X- Vagus: Intact Cranial Nerve XI- Accessory: Intact Cranial Nerve XII- Hypoglossal: Intact Results CBC & Chem 7: 11/23/18 17:13 11/23/18 17:13 Labs: Abnormal Lab Results - Last 24 Hours (Table) 11/23/18 Range/Units 17:13 Urine Blood Moderate H (Negative) Ur Leukocyte Esterase Small H (Negative) Urine Bacteria Few H (None) /hpf Urine Mucus Rare H (None) /hpf Assessment and Plan Assessment: 28-year-old female comes to the hospital for Procardia and for being disoriented and abnormal behavior. She was appearing manic of using to take her medications. Patient has history of schizophrenia and PTSD medicine was consulted for medical evaluation Plan: manic behavior History of schizophrenia Paranoid and Management per psych Tobacco smoking Counseled to quit smoking Nicotine replacement therapy history of PCO S Outpatient follow-up DVT prophylaxis low-risk patients ambulatory labs reviewed, unremarkable Thank you for allowing us to participate in the care of this patient. We will follow peripherally. Do not hesitate to contact us with questions. Someone can be reached from the [facility] hospitalist group at all hours of the day at [phone].
[2018-11-24] MEDS ORDERED: NITROFURANTOIN MONOHYD/M-CRYST 100 MG CAP PO SCH (09:00)
[2018-11-24] MEDS: NICOTINE 21MG/24HR PATCH TRANSDERM SCH (09:22)
--- NOTE | 2018-11-24 10:38 | P.CN ---
Psychiatric Consult - . 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 HPI: Patient presented to the hospital with her guardian yesterday and as per ER report patient was "de la cruz" and appeared to be manic and paranoid. As per ER report, states that patient's father had in November and patient has had a decline in her functioning. Patient was also noted to be noncompliant with her medications. Patient was agreeable to be seen by magazine writer and was noted to have poor insight and judgment into her condition and claims that she did not need or want medications. She stated several times "I don't need to have any of the stuff". Patient claims that she does not know why her aunt brought her into the hospital and denied any problems at home. She states that she's had poor sleep in the past 4 day. Patient did endorse some paranoia related to her mother's boyfriend and aunt thinking that there are to get her. She states that she has been noncompliant for over 2 weeks and claims that she does not know the medications she takes. She states that she has poor appetite poor concentration and feels "exhausted" and has been crying at times at home. Patient denies any suicidal or homicidal ideations intent or plan. At this time patient denies any auditory or visual hallucinations. Patient denies any flight of ideas racing thoughts and increased in goal directed behavior. Patient admits to using cigarettes approximately one pack per day and denies any other recreational drug use including alcohol and marijuana. UDS was negative on admission. PAST PSYCHIATRIC HISTORY: Patient states that she has a history of schizoaffective disorder, bipolar and was previously on many psychotropic medications including Wellbutrin and Abilify lithium or Lamictal. Patient's last hospitalization on the mental health unit was on 12/2017. Patient denies any history of suicide attempts. PMH: PCO S, heart murmur ALLERGIES: as per EMR CHEMICAL DEPENDENCY HISTORY: as per HPI FAMILY PSYCHIATRIC/SUBSTANCE USE HISTORY: Claims that her uncle comitted suicide. SOCIAL HISTORY: She states that she was born and raised in [place] with her fam itzel and moved to [place] to be closer to her aunt who is her guardian in [place]. Patient currently attends [employer] and is in her second year of studies. 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 MENTAL STATUS EXAM: General Appearance: Patient appears to be overweight with facial hair, is alert, uncooperative. Patient has poor hygiene and poor grooming. Poor eye contact. Behavior: Patient is calmly seated without any agitated behavior. Speech: Patient's speech is fluent and nonpressured. Mood/Affect: Patient reports their mood is "fine", affect is incongruent and constricted. Suicidality/Homicidality: Patient denies having any suicidal or homicidal ideation intent or plan. Perceptions: Patient denies any auditory or visual hallucinations. Though content/process: There is no evidence of any delusional thought content and thought process is linear and goal-directed. Patient minimizes her symptoms and does endorse paranoia. Memory and concentration: AOX3, grossly intact for the purposes of this session. Can spell "WORLD" backwards Judgment and insight: poor STRENGTHS/WEAKNESSES: strength is that patient has good support and is in school, weaknesses that patient has poor insight and judgment. INTELLECT: average IMPRESSIONS: Schizoaffective disorder, depressed Nicotine dependence PLAN: -Patient is admitted under voluntary status to MHU for stabilization of psychiatric symptoms and safety. Patient signed adult voluntary form however declined to sign medication consent and is placed in patient's chart. -Medications : Will start patient on Risperdal 1 mg twice a day for psychosis/mood stabilization. We'll likely seek to put patient on long-acting injection due to noncompliance. -Geodon and Ativan PRN for agitation/aggression -Patient was informed of the risks, benefits and side effects of the medication and patient claims that she did not want to take any of the medications she feels she does not need it. -NRT - nicotine patch -SW on board for discharge planning. We'll fill out another 2 certifications and petition and file for court today for involuntary hospitalization and treatment.
[2018-11-24 10:54] LABS: African American GFR (CKD) >90 (>60 ml/min/1.73 sqM); Anion Gap 15 mmol/L; Blood Urea Nitrogen 15 mg/dL (7-17); Carbon Dioxide 23 mmol/L (22-30); Chloride 104 mmol/L (98-107); Cholesterol 150 mg/dL (<200); Glucose 83 mg/dL (74-99); HDL Cholesterol 30 mg/dL (40-60); LDL Cholesterol,Calculated 97 mg/dL (0-99); Sodium 142 mmol/L (137-145); Triglycerides 113 mg/dL (<150)
--- NOTE | 2018-11-24 11:12 | P.HP ---
Psychiatric H&P - . H&P Date: 11/24/18 History & Physical: Allergies Allergy/AdvReac Type Severity Reaction Status Date / Time No Known Allergies Allergy Verified 11/23/18 15:20 Vital Signs Temp 98.0 F 11/24/18 07:13 Pulse 81 11/24/18 07:13 Resp 14 11/24/18 07:13 BP 134/67 11/24/18 07:13 Pulse Ox 100 11/24/18 04:03 Intake & Output 11/23/18 11/24/18 11/24/18 18:59 06:59 18:59 Weight 109.769 kg 107.093 kg Laboratory Last Values WBC 8.7 k/uL (3.8-10.6) 11/23/18 17:13 RBC 5.35 m/uL (3.80-5.40) 11/23/18 17:13 Hgb 14.7 gm/dL (11.4-16.0) 11/23/18 17:13 Hct 45.4 % (34.0-46.0) 11/23/18 17:13 MCV 84.8 fL (80.0-100.0) 11/23/18 17:13 MCH 27.4 pg (25.0-35.0) 11/23/18 17:13 MCHC 32.4 g/dL (31.0-37.0) 11/23/18 17:13 RDW 12.8 % (11.5-15.5) 11/23/18 17:13 Plt Count 286 k/uL (150-450) 11/23/18 17:13 Neutrophils % 70 % 11/23/18 17:13 Lymphocytes % 21 % 11/23/18 17:13 Monocytes % 5 % 11/23/18 17:13 Eosinophils % 2 % 11/23/18 17:13 Basophils % 1 % 11/23/18 17:13 Neutrophils # 6.0 k/uL (1.3-7.7) 11/23/18 17:13 Lymphocytes # 1.8 k/uL (1.0-4.8) 11/23/18 17:13 Monocytes # 0.4 k/uL (0-1.0) 11/23/18 17:13 Eosinophils # 0.2 k/uL (0-0.7) 11/23/18 17:13 Basophils # 0.1 k/uL (0-0.2) 11/23/18 17:13 Sodium 141 mmol/L (137-145) 11/23/18 17:13 Potassium 4.2 mmol/L (3.5-5.1) 11/23/18 17:13 Chloride 106 mmol/L (98-107) 11/23/18 17:13 Carbon Dioxide 25 mmol/L (22-30) 11/23/18 17:13 Anion Gap 10 mmol/L 11/23/18 17:13 BUN 15 mg/dL (7-17) 11/23/18 17:13 Creatinine 0.80 mg/dL (0.52-1.04) 11/23/18 17:13 Est GFR (CKD-EPI)AfAm >90 (>60 ml/min/1.73 sqM) 11/23/18 17:13 Est GFR (CKD-EPI)NonAf >90 (>60 ml/min/1.73 sqM) 11/23/18 17:13 Glucose 92 mg/dL (74-99) 11/23/18 17:13 Calcium 10.2 mg/dL (8.4-10.2) 11/23/18 17:13 Total Bilirubin 0.9 mg/dL (0.2-1.3) 11/23/18 17:13 AST 22 U/L (14-36) 11/23/18 17:13 ALT 25 U/L (9-52) 11/23/18 17:13 Alkaline Phosphatase 69 U/L (38-126) 11/23/18 17:13 Total Protein 7.7 g/dL (6.3-8.2) 11/23/18 17:13 Albumin 4.7 g/dL (3.5-5.0) 11/23/18 17:13 Urine Color Light Yellow 11/23/18 17:13 Urine Appearance Clear (Clear) 11/23/18 17:13 Urine pH 6.5 (5.0-8.0) 11/23/18 17:13 Ur Specific [place] 1.014 (1.001-1.035) 11/23/18 17:13 Urine Protein Negative (Negative) 11/23/18 17:13 Urine Glucose (UA) Negative (Negative) 11/23/18 17:13 Urine Ketones Negative (Negative) 11/23/18 17:13 Urine Blood Moderate (Negative) H 11/23/18 17:13 Urine Nitrite Negative (Negative) 11/23/18 17:13 Urine Bilirubin Negative (Negative) 11/23/18 17:13 Urine Urobilinogen <2.0 mg/dL (<2.0) 11/23/18 17:13 Ur Leukocyte Esterase Small (Negative) H 11/23/18 17:13 Urine RBC 4 /hpf (0-5) 11/23/18 17:13 Urine WBC 2 /hpf (0-5) 11/23/18 17:13 Ur Squamous Epith Cells 1 /hpf (0-4) 11/23/18 17:13 Urine Bacteria Few /hpf (None) H 11/23/18 17:13 Urine Mucus Rare /hpf (None) H 11/23/18 17:13 Urine Opiates Screen Not Detected (NotDetected) 11/23/18 17:13 Ur Oxycodone Screen Not Detected (NotDetected) 11/23/18 17:13 Urine Methadone Screen Not Detected (NotDetected) 11/23/18 17:13 Ur Propoxyphene Screen Not Detected (NotDetected) 11/23/18 17:13 Ur Barbiturates Screen Not Detected (NotDetected) 11/23/18 17:13 U Tricyclic Antidepress Not Detected (NotDetected) 11/23/18 17:13 Ur Phencyclidine Scrn Not Detected (NotDetected) 11/23/18 17:13 Ur Amphetamines Screen Not Detected (NotDetected) 11/23/18 17:13 U Methamphetamines Scrn Not Detected (NotDetected) 11/23/18 17:13 U Benzodiazepines Scrn Not Detected (NotDetected) 11/23/18 17:13 Urine Cocaine Screen Not Detected (NotDetected) 11/23/18 17:13 U Marijuana (THC) Screen Not Detected (NotDetected) 11/23/18 17:13 11/24/18 11:12 IDENTIFYING DATA: Patient is a 28-year-old female who lives alone in apartment 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 HPI: Patient presented to the hospital with her guardian yesterday and as per ER report patient was "de la cruz" and appeared to be manic and paranoid. As per ER report, states that patient's father had in November and patient has had a decline in her functioning. Patient was also noted to be noncompliant with her medications. Patient was agreeable to be seen by commercial real estate underwriter and was noted to have poor insight and judgment into her condition and claims that she did not need or want medications. She stated several times "I don't need to have any of the stuff". Patient claims that she does not know why her aunt brought her into the hospital and denied any problems at home. She states that she's had poor sleep in the past 4 day. Patient did endorse some paranoia related to her mother's boyfriend and aunt thinking that there are to get her. She states that she has been noncompliant for over 2 weeks and claims that she does not know the medications she takes. She states that she has poor appetite poor concentration and feels "exhausted" and has been crying at times at home. Patient denies any suicidal or homicidal ideations intent or plan. At this time patient denies any auditory or visual hallucinations. Patient denies any flight of ideas racing thoughts and increased in goal directed behavior. Patient admits to using cigarettes approximately one pack per day and denies any other recreational drug use including alcohol and marijuana. UDS was negative on admission. PAST PSYCHIATRIC HISTORY: Patient states that she has a history of schizoaffective disorder, bipolar and was previously on many psychotropic medications including Wellbutrin and Abilify lithium or Lamictal. Patient's last hospitalization on the mental health unit was on 12/2017. Patient denies any history of suicide attempts. PMH: PCO S, heart murmur ALLERGIES: as per EMR CHEMICAL DEPENDENCY HISTORY: as per HPI FAMILY PSYCHIATRIC/SUBSTANCE USE HISTORY: Claims that her uncle comitted suicide. SOCIAL HISTORY: She states that she was born and raised in [place] with her family and moved to [place] to be closer to her aunt who is her guardian in [place]. Patient currently attends [employer] and is in her second year of studies. 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 MENTAL STATUS EXAM: General Appearance: Patient appears to be overweight with facial hair, is alert, uncooperative. Patient has poor hygiene and poor grooming. Poor eye contact. Behavior: Patient is calmly seated without any agitated behavior. Speech: Patient's speech is fluent and nonpressured. Mood/Affect: Patient reports their mood is "fine", affect is incongruent and constricted. Suicidality/Homicidality: Patient denies having any suicidal or homicidal ideation intent or plan. Perceptions: Patient denies any auditory or visual hallucinations. Though content/process: There is no evidence of any delusional thought content and thought process is linear and goal-directed. Patient minimizes her symptoms and does endorse paranoia. Memory and concentration: AOX3, grossly intact for the purposes of this session. Can spell "WORLD" backwards Judgment and insight: poor STRENGTHS/WEAKNESSES: strength is that patient has good support and is in school, weaknesses that patient has poor insight and judgment. INTELLECT: average IMPRESSIONS: Schizoaffective disorder, depressed Nicotine dependence PLAN: -Patient is admitted under voluntary status to MHU for stabilization of psychiatric symptoms and safety. Patient signed adult voluntary form however declined to sign medication consent and is placed in patient's chart. -Medications : Will start patient on Risperdal 1 mg twice a day for psychosis/mood stabilization. We'll likely seek to put patient on long-acting injection due to noncompliance. -Geodon and Ativan PRN for agitation/aggression -Patient was informed of the risks, benefits and side effects of the medication and patient claims that she did not want to take any of the medications she feels she does not need it. -NRT - nicotine patch -SW on board for discharge planning. We'll fill out another 2 certifications and petition and file for court today for involuntary hospitalization and treatment.
[2018-11-24] MEDS: risperiDONE 1 MG TAB PO SCH ×2 (11:38→20:37)
[2018-11-24 16:50] LABS: Hemoglobin A1C 4.6 % (4.0-6.0)
[2018-11-25] MEDS: risperiDONE 1 MG TAB PO SCH ×2 (10:14→10:21)
[2018-11-25] MEDS: NICOTINE 21MG/24HR PATCH TRANSDERM SCH (10:14)
--- NOTE | 2018-11-25 14:30 | P.PN ---
Progress Note - Text Progress Note Date: 11/25/18 Interval History: patient was seen today for follow-up. Patient continued to deny having a prob evelin and not one to be in the hospital. Patient stated that she feels that she doesn't need medications. patient was however agreeable to start medication for mood stabilizing and also to help with anxiety at night. She states that Ativan has been helping her on the unit "stay calm". At this time she denies any depression however patient is somewhat irritable. She admits to anxiety. She claimed that she had poor sleep last night. At this time patient denies any suicidal or homical ideations, intent or plan. Patient denies any auditory, visual hallucinations and denies any paranoia or delusions. Patient denies any side effects from the medications and has been compliant with meds. Mental Status Exam: General Appearance: Patient appears to be overweight with facial hair, is alert, uncooperativeat times. Patient has fair hygiene and poor grooming. Poor eye contact. Behavior: Patient is calmly seated without any agitated behavior.somewhat irritable. Speech: Patient's speech is fluent and nonpressured. Mood/Affect: Patient reports their mood is "fine", affect is incongruent and constricted. Suicidality/Homicidality: Patient denies having any suicidal or homicidal ideation intent or plan. Perceptions: Patient denies any auditory or visual hallucinations. Though content/process: There is no evidence of any delusional thought content and thought process is linear and goal-directed. Patient minimizes her symptoms Memory and concentration: AOX3, grossly intact for the purposes of this session. Judgment and insight: poor Assessment bipolar disorder, mixed features. history of PTSD Nicotine dependence Plan: -Patient continues to meet criteria for inpatient psychiatric admission for symptom stabilization and safety. Patient has signed adult voluntary form and medication consent and was placed in patient's chart. -Medications: change patient to Trileptal 300 mg twice a day this patient is agreeable to take this. Patient also requested to be on Klonopin at night, will start 0.5 mg daily at bedtime for anxiety/insomnia. -When necessary Geodon and Ativan for agitation/aggression. -NRT - nicotine patch -SW on board for discharge planning. singer songwriter, patient and rn social services sat down and conference call with patient's aunt/guardian who gave additional history and information about outpatient presented. We addressed guardian's concern and allowed patient to voice her concern with regards to medications and treatment. Guardian and patient are in agreement with above-mentioned plan.
[2018-11-25] MEDS: OXcarbazepine 300 MG TAB PO SCH (21:16)
[2018-11-25] MEDS: clonazePAM 0.5 MG TAB PO SCH (21:17)
[2018-11-26] MEDS: OXcarbazepine 300 MG TAB PO SCH ×2 (09:16→20:29)
[2018-11-26] MEDS: NICOTINE 21MG/24HR PATCH TRANSDERM SCH (09:16)
--- NOTE | 2018-11-26 09:54 | P.PN ---
Progress Note - Text Progress Note Date: 11/26/18 Interval History: Patient was seen today for follow-up. Patient claims that she slept well last night and claims to have improvement in her anxiety and states that "I'm actually interacting with people know" and claims to feel better. Patient continues to feel that she does not need medications and refused her Trileptal yesterday and this morning. Patient was however agreeable to start taking them today. At this time she denies any depression and patient appears to have an improvement in her irritability. At this time patient denies any suicidal or homical ideations, intent or plan. Patient denies any auditory, visual hallucinations and denies any paranoia or delusions. Patient denies any side effects from the medications and has been compliant with meds. Mental Status Exam: General Appearance: Patient appears to be overweight with facial hair, is alert, more cooperative today. Patient has fair hygiene and poor grooming. Behavior: Patient is calmly seated without any agitated behavior Speech: Patient's speech is fluent and nonpressured. Mood/Affect: Patient reports their mood is "ok", affect is incongruent and constricted. Suicidality/Homicidality: Patient denies having any suicidal or homicidal ideation intent or plan. Perceptions: Patient denies any auditory or visual hallucinations. Though content/process: There is no evidence of any delusional thought content and thought process is linear and goal-directed. Patient minimizes her need for hospitalization and need for medications. Memory and concentration: AOX3, grossly intact for the purposes of this session. Judgment and insight: poor, improving mildly Assessment Mood disorder, rule out bipolar disorder PTSD Nicotine dependence Plan: -Patient continues to meet criteria for inpatient psychiatric admission for symptom stabilization and safety. Patient has signed adult voluntary form and medication consent and was placed in patient's chart. -Medications: Continue with Trileptal 300 mg twice a day this patient is agreeable to take this. Continue with Klonopin 0.5 mg daily at bedtime for anxiety/insomnia. -When necessary Geodon and Ativan for agitation/aggression. -NRT - nicotine patch -SW on board for discharge planning.
[2018-11-26] MEDS: clonazePAM 0.5 MG TAB PO SCH (20:29)
[2018-11-27 06:55] VITALS: TEMP 97.6
[2018-11-27] MEDS: NICOTINE 21MG/24HR PATCH TRANSDERM SCH (07:56)
[2018-11-27] MEDS: OXcarbazepine 300 MG TAB PO SCH ×2 (07:56→20:41)
--- NOTE | 2018-11-27 10:40 | P.PN ---
Progress Note - Text Progress Note Date: 11/27/18 Interval History: Patient was seen today for follow-up. Patient claims that she is feeling much better today with regards to her mood and anxiety. She states that she was able to try the Trileptal yesterday and this morning and claims that she is tolerating it well with no side effects. Patient claims that she is optimistic with the future and claims that this medication will help her. She also states that her anxiety is improving on the Klonopin and claims that she was able to go to groups and participate more. Patient claims that she slept well last night and has fair appetite. At this time patient denies any suicidal or homical ideations, intent or plan. Patient denies any auditory, visual hallucinations and denies any paranoia or delusions. Patient denies any side effects from the medications and has been compliant with meds. Mental Status Exam: General Appearance: Patient appears to be overweight with facial hair, is alert, directable and cooperative today. Patient has fair hygiene and poor grooming. Behavior: Patient is calmly seated without any agitated behavior Speech: Patient's speech is fluent and nonpressured. Mood/Affect: Patient reports their mood is "good", affect is incongruent and constricted. Suicidality/Homicidality: Patient denies having any suicidal or homicidal ideation intent or plan. Perceptions: Patient denies any auditory or visual hallucinations. Though content/process: There is no evidence of any delusional thought content and thought process is linear and goal-directed. Memory and concentration: AOX3, grossly intact for the purposes of this session. Judgment and insight: Fair, improving mildly Assessment Mood disorder, rule out bipolar disorder PTSD Nicotine dependence Plan: -Patient continues to meet criteria for inpatient psychiatric admission for symptom stabilization and safety. Patient has signed adult voluntary form and medication consent and was placed in patient's chart. -Medications: Continue with Trileptal 300 mg twice a day for mood stabilization. Continue with Klonopin 0.5 mg daily at bedtime for anxiety/insomnia. -When necessary Geodon and Ativan for agitation/aggression. -NRT - nicotine patch -SW on board for discharge planning. Plan for discharge Wednesday after family meeting with guardian.
[2018-11-27] MEDS: clonazePAM 0.5 MG TAB PO SCH (20:41)
[2018-11-28 05:03] VITALS: BP 112/72; PULSE 141; RESP 18
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
[2018-11-28] MEDS: NICOTINE 21MG/24HR PATCH TRANSDERM SCH (09:39)
[2018-11-28] MEDS: OXcarbazepine 300 MG TAB PO SCH (09:39)
== END 2018-11-28 17:04 | disposition home or self-care (01) | DRG 885 ==
LOC: EC 14:56 → 3MHU 21:35
PROVIDERS: ADMIT Psychiatry & Neurology Psychiatry; ATTEND Psychiatry & Neurology Psychiatry
DX: F39 Unspecified mood [affective] disorder (principal); F41.0 Panic disorder [episodic paroxysmal anxiety]; E28.2 Polycystic ovarian syndrome; F43.10 Post-traumatic stress disorder, unspecified; G47.00 Insomnia, unspecified; Z79.899 Other long term (current) drug therapy; Z91.14 Patient's other noncompliance with medication regimen; Z91.19 Patient's noncompliance with other medical treatment and regimen; F17.210 Nicotine dependence, cigarettes, uncomplicated
CPT/HCPCS: 36415; 80048; 80053; 80061; 80306; 81001; 81025; 82075; 83036; 84443; 85025; 99284

== ENCOUNTER 2018-12-18 17:07 | Emergency (ER) | payer OTHER ==
[2018-12-18 17:23] VITALS: RESP 16; TEMP 97
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
[2018-12-18] MEDS ORDERED: LORazepam 1 MG TAB PO STA (17:57)
[2018-12-18] MEDS ORDERED: ZIPRASIDONE 20 MG VIAL IM STA ×2 (18:00→23:58)
[2018-12-18 19:36] LABS: Basophils # (A) 0.1 k/uL (0-0.2); Basophils % (A) 1 %; Eosinophils # (A) 0.1 k/uL (0-0.7); Eosinophils % (A) 1 %; HCT 38.6 % (34.0-46.0); Lymphocytes # (A) 1.5 k/uL (1.0-4.8); Lymphocytes % (A) 15 %; MCH 27.9 pg (25.0-35.0); MCHC 33.5 g/dL (31.0-37.0); MCV 83.2 fL (80.0-100.0); Mean Platelet Volume 7.8; Monocytes # (A) 0.5 k/uL (0-1.0); Monocytes % (A) 5 %; Neutrophils # (A) 7.8 k/uL (1.3-7.7); Neutrophils % (A) 78 %; Platelet Count 283 k/uL (150-450); RBC 4.64 m/uL (3.80-5.40); RDW 12.9 % (11.5-15.5); WBC 9.9 k/uL (3.8-10.6)
[2018-12-18 19:47] LABS: ALT 33 U/L (9-52); AST 30 U/L (14-36); African American GFR (CKD) >90 (>60 ml/min/1.73 sqM); Albumin 4.6 g/dL (3.5-5.0); Alkaline Phosphatase 61 U/L (38-126); Anion Gap 9 mmol/L; Blood Urea Nitrogen 15 mg/dL (7-17); Calcium 9.4 mg/dL (8.4-10.2); Carbon Dioxide 23 mmol/L (22-30); Chloride 108 mmol/L (98-107); Glucose 85 mg/dL (74-99); Potassium 3.9 mmol/L (3.5-5.1); Sodium 140 mmol/L (137-145); Total Bilirubin 0.9 mg/dL (0.2-1.3); Total Protein 7.4 g/dL (6.3-8.2)
[2018-12-18 23:02] LABS: Appearance,Urine Clear (Clear); Bacteria,Urine Rare /hpf; Bilirubin,Urine Negative (Negative); Blood,Urine Moderate (Negative); Color,Urine Light Yellow; Glucose,Urine (UA) Negative (Negative); Ketones,Urine Negative (Negative); Leukocyte Esterase,Urine Negative (Negative); Mucus,Urine Occasional /hpf; Nitrite,Urine Negative (Negative); Protein,Urine Negative (Negative); RBC,Urine 33 /hpf (0-5); Specific Gravity,Urine 1.008 (1.001-1.035); Urobilinogen,Urine <2.0 mg/dL (<2.0); WBC,Urine 1 /hpf (0-5)
[2018-12-18 23:09] LABS: Amphetamine Screen,Urine Not Detected (NotDetected); Barbiturate Screen,Urine Not Detected (NotDetected); Benzodiazepines Screen,Urine Not Detected (NotDetected); Cocaine Screen,Urine Not Detected (NotDetected); Methadone Screen, Urine Not Detected (NotDetected); Opiate Screen,Urine Not Detected (NotDetected); Oxycodone Screen, Urine Not Detected (NotDetected); Phencyclidine Screen,Urine Not Detected (NotDetected); Tricyclic Antidepressant,Urine Not Detected (NotDetected); Urn Cannabinoid Scrn Not Detected (NotDetected)
[2018-12-18] MEDS ORDERED: LORazepam 2 MG/ML INJ IM STA (23:57)
[2018-12-19 12:24] VITALS: BP 127/70; PULSE 93
[2018-12-19] MEDS ORDERED: LORazepam 1 MG TAB PO STA (13:08)
== END 2018-12-19 01:15 ==
LOC: EC 17:07
DX: F20.0 Paranoid schizophrenia (principal); F41.9 Anxiety disorder, unspecified; F17.200 Nicotine dependence, unspecified, uncomplicated; Z91.14 Patient's other noncompliance with medication regimen
CPT/HCPCS: 82075; 36415; 80053; 85025; 81001; 81025; 80306; 99285; 96372 ×3; J2060; J3486 ×2

== ENCOUNTER 2019-01-10 08:21 | Inpatient (IN) | payer MEDICAID, OTHER ==
[2019-01-10 10:15] LABS: Amorphous Sediment,Urine Rare /hpf; Appearance,Urine Cloudy (Clear); Bacteria,Urine Occasional /hpf; Bilirubin,Urine Negative (Negative); Blood,Urine Moderate (Negative); Color,Urine Yellow; Glucose,Urine (UA) Negative (Negative); Ketones,Urine Negative (Negative); Leukocyte Esterase,Urine Trace (Negative); Mucus,Urine Few /hpf; Nitrite,Urine Negative (Negative); PH, Urine 7.5 (5.0-8.0); Protein,Urine 1+ (Negative); RBC,Urine >182 /hpf (0-5); Specific Gravity,Urine 1.019 (1.001-1.035); Squamous Epithelial Cell,Urine 2 /hpf (0-4); Urobilinogen,Urine <2.0 mg/dL (<2.0); WBC,Urine 5 /hpf (0-5)
[2019-01-10 10:22] LABS: Amphetamine Screen,Urine Not Detected (NotDetected); Barbiturate Screen,Urine Not Detected (NotDetected); Benzodiazepines Screen,Urine Not Detected (NotDetected); Cocaine Screen,Urine Not Detected (NotDetected); Methadone Screen, Urine Not Detected (NotDetected); Opiate Screen,Urine Not Detected (NotDetected); Oxycodone Screen, Urine Not Detected (NotDetected); Phencyclidine Screen,Urine Not Detected (NotDetected); Tricyclic Antidepressant,Urine Not Detected (NotDetected); Urn Cannabinoid Scrn Not Detected (NotDetected)
[2019-01-10] MEDS: buPROPion XL 150 MG TAB.ER.24H PO SCH (10:47)
[2019-01-10] MEDS ORDERED: OLANZapine 5 MG TAB PO SCH (11:00)
[2019-01-10] MEDS: OLANZapine ODT 5 MG TAB PO SCH ×3 (11:13→22:32)
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
[2019-01-10] MEDS ORDERED: ACETAMINOPHEN TAB 325 MG TAB PO PRN (19:33)
[2019-01-10] MEDS ORDERED: MAG HYDROX/AL HYDROX/SIMETH 30 ML CUP PO PRN (19:33)
[2019-01-10] MEDS ORDERED: ZIPRASIDONE 20 MG VIAL IM PRN (19:33)
[2019-01-10] MEDS ORDERED: MAGNESIUM HYDROXIDE 2,400 MG/10 ML CUP PO PRN (19:33)
[2019-01-10] MEDS ORDERED: LORazepam 1 MG TAB PO PRN (19:35)
[2019-01-10] MEDS ORDERED: LORazepam 2 MG/ML INJ IM PRN (19:35)
[2019-01-10] MEDS: NICOTINE 7MG/24HR PATCH TRANSDERM SCH (21:33)
[2019-01-11] MEDS: OLANZapine ODT 5 MG TAB PO SCH ×3 (08:59→21:20)
[2019-01-11] MEDS: CHOLECALCIFEROL 1,000 UNIT TAB PO SCH (08:59)
[2019-01-11] MEDS: buPROPion XL 150 MG TAB.ER.24H PO SCH (08:59)
[2019-01-11] MEDS: NICOTINE 7MG/24HR PATCH TRANSDERM SCH (08:59)
[2019-01-11 11:44] LABS: Basophils # (A) 0.1 k/uL (0-0.2); Basophils % (A) 1 %; Eosinophils # (A) 0.1 k/uL (0-0.7); Eosinophils % (A) 1 %; HCT 44.7 % (34.0-46.0); HGB 14.9 gm/dL (11.4-16.0); Lymphocytes # (A) 1.5 k/uL (1.0-4.8); Lymphocytes % (A) 15 %; MCH 28.3 pg (25.0-35.0); MCHC 33.3 g/dL (31.0-37.0); MCV 85.1 fL (80.0-100.0); Mean Platelet Volume 9.1; Monocytes # (A) 0.5 k/uL (0-1.0); Monocytes % (A) 5 %; Neutrophils # (A) 7.3 k/uL (1.3-7.7); Neutrophils % (A) 77 %; Platelet Count 276 k/uL (150-450); RBC 5.26 m/uL (3.80-5.40); RDW 13.2 % (11.5-15.5); WBC 9.6 k/uL (3.8-10.6)
[2019-01-11 12:07] LABS: ALT 32 U/L (9-52); AST 27 U/L (14-36); African American GFR (CKD) >90 (>60 ml/min/1.73 sqM); Albumin 5.1 g/dL (3.5-5.0); Alkaline Phosphatase 65 U/L (38-126); Anion Gap 10 mmol/L; Blood Urea Nitrogen 12 mg/dL (7-17); Calcium 10.1 mg/dL (8.4-10.2); Carbon Dioxide 21 mmol/L (22-30); Chloride 107 mmol/L (98-107); Cholesterol 166 mg/dL (<200); Glucose 81 mg/dL (74-99); HDL Cholesterol 36 mg/dL (40-60); LDL Cholesterol,Calculated 110 mg/dL (0-99); Non-African American GFR(CKD) >90 (>60 ml/min/1.73 sqM); Potassium 4.5 mmol/L (3.5-5.1); Sodium 138 mmol/L (137-145); Total Bilirubin 1.6 mg/dL (0.2-1.3); Total Protein 8.3 g/dL (6.3-8.2); Triglycerides 98 mg/dL (<150)
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
--- NOTE | 2019-01-11 17:58 | P.HPMEDMHU ---
History of Present Illness H&P Date: 01/11/19 Chief Complaint: Manic episode Patient is a 28-year-old female with a past medical history of polycystic ovarian syndrome migraine headaches, and a heart murmur who presented at the direction of her mom after having a manic episode. She has subsequently been admitted to the mental health unit. Patient states she is concerned that she has possible diabetes she feels as though she has been drinking more, thirsty all the time, and having increased tiredness. She is also concerned that she may have a tapeworm. She is unable to tell me if she's had nausea, vomiting, diarrhea, or constipation. She is unable to tell me she's been eating or drinking. She is really a poor historian and cannot answer any questions accurately. Review of Systems Pertinent positives and negatives as discussed in HPI, a complete review of systems was performed and all other systems are negative. Past Medical History Additional Past Medical History / Comment(s): PCOS, migraines History of Any Multi-Drug Resistant Organisms: None Reported Past Surgical History: No Surgical Hx Reported Past Anesthesia/Blood Transfusion Reactions: No Reported Reaction Additional Past Anesthesia/Blood Transfusion Reaction / Comment(s): clausterphobia Past Psychological History: Anxiety, Bipolar, Depression, Panic Disorder, Schizoaffective Disorder Smoking Status: Current every day smoker Past Alcohol Use History: None Reported Past Drug Use History: None Reported Additional History: Patient states she thinks she has quit smoking but she is not sure. 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 - Past Family History Father Additional Family Medical History / Comment(s): Mother History Unknown: Yes Grandmother Family Medical History: Diabetes Mellitus Medications and Allergies Home Medications Medication Instructions Recorded Confirmed Type Cholecalciferol [Vitamin D3 (25 5,000 unit PO DAILY 11/23/18 01/10/19 History Mcg = 1000 Iu)] OLANZapine ODT [ZyPREXA ZYDIS] 5 mg PO TID 01/10/19 01/10/19 History buPROPion XL [Wellbutrin Xl] 150 mg PO DAILY 01/10/19 01/10/19 History Allergies Allergy/AdvReac Type Severity Reaction Status Date / Time lamotrigine [From Lamictal] Allergy Rash/Hives Verified 01/10/19 10:10 Physical Exam Osteopathic Statement: *. No significant issues noted on an osteopathic structural exam other than those noted in the History and Physical/Consult. Vitals: Vital Signs Temp Pulse Resp BP 01/11/19 06:15 98 F 98 16 113/71 01/10/19 19:13 98.6 F 91 16 146/71 01/10/19 18:52 20 01/10/19 18:09 20 Intake and Output 01/11/19 01/11/19 01/11/19 06:59 14:59 22:59 Other: Weight 108.012 kg General: non toxic, no distress, appears at stated age, Obese Derm: + hairsuitism upper lip and chin no unusual rashes/lesions no unusual ecchymoses, warm, dry Head: atraumatic, normocephalic, symmetric Eyes: EOMI, no lid lag, anicteric sclera, pupils equal round reactive to light ENT: Nose and ears atraumatic, no thrush, no pharyngeal erythema Neck: No thyromegaly, no cervical lymphadenopathy, trachea midline, supple Mouth: no lip lesion, mucus membranes moist Cardiovascular: S1S2 reg, no murmur, positive posterior tibial pulse bilateral, no edema, capillary refill less than 2 seconds Lungs: CTA bilateral, no rhonchi, no rales , no accessory muscle use Abdominal: soft, nontender to palpation, no guarding, no appreciable organomegaly, normal bowel sounds Ext: no gross muscle atrophy, muscle strength 5 out of 5 in all 4 extremities grossly, no contractures, Neuro: CN II-XI grossly intact, light touch intact all 4 extremities, finger to nose within normal limits, Psych: Alert, flight of ideas, unable to focus, Cranial Nerve Examination - Cranial Nerves Cranial Nerve II- Optic: Intact Cranial Nerve III- Oculomotor: Intact Cranial Nerve IV- Trochlear: Intact Cranial Nerve V- Trigeminal: Intact Cranial Nerve - Abducens: Intact Cranial Nerve VII- Facial: Intact Cranial Nerve VIII- Auditory: Intact Cranial Nerve IX- Glossopharyngeal: Intact Cranial Nerve X- Vagus: Intact Cranial Nerve XI- Accessory: Intact Cranial Nerve XII- Hypoglossal: Intact Results CBC & Chem 7: 01/11/19 11:03 01/11/19 11:03 Labs: Abnormal Lab Results - Last 24 Hours (Table) 01/11/19 Range/Units 11:03 Carbon Dioxide 21 L (22-30) mmol/L Total Bilirubin 1.6 H (0.2-1.3) mg/dL Total Protein 8.3 H (6.3-8.2) g/dL Albumin 5.1 H (3.5-5.0) g/dL LDL Cholesterol, Calc 110 H (0-99) mg/dL HDL Cholesterol 36 L (40-60) mg/dL Thrombosis Risk Factor Assmnt - DVT/VTE Prophylaxis DVT/VTE Prophylaxis: Low risk, early ambulation encouraged Assessment and Plan Assessment: Polycystic ovarian syndrome - Once stabilized could consider use of metformin or OCP for treatment, can be discussed with her PCP Concern for diabetes - Glucose normal on BMP no need for further testing Morbid obesity -Outpatient structured weight loss Manic episode -Your psych management Thank you for allowing us to participate in the care of this pleasant patient. Do not hesitate to contact us with questions. Someone can be reached from the [facility] hospitalist group all hours of the day at [phone] or via [employer].
[2019-01-11 19:16] LABS: Hemoglobin A1C 4.7 % (4.0-6.0)
[2019-01-12] MEDS: NICOTINE 7MG/24HR PATCH TRANSDERM SCH (08:07)
[2019-01-12] MEDS: buPROPion 75 MG TAB PO SCH (08:07)
[2019-01-12] MEDS: CHOLECALCIFEROL 1,000 UNIT TAB PO SCH (08:08)
[2019-01-12] MEDS: OLANZapine ODT 5 MG TAB PO SCH (08:08)
--- NOTE | 2019-01-12 16:08 | P.PN ---
Progress Note - Text Progress Note Date: 01/12/19 Clinical Problems: Unspecified psychotic disorder, rule out schizoaffective disorder, rule out bipolar disorder, rule out schizophrenia Interim history: I reviewed the medical record, interviewed the patient and discussed her treatment and treatment plan during team meeting. She signed a "3 day notice" yesterday afternoon. We have since verified her legal status and she deferred a probate hearing while she was at [facility]. 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 She denied need for psychiatric treatment. She would not consent to treatment with a medication in addition to olanzapine or to a trial of a different antipsychotic medication. She denied experiencing depression, suicidal thoughts, homicidal thoughts, hallucinations, thought insertion etc. This was very difficult interview in that her thinking was disorganized, digressive and circular. Mental status exam: She presented as a moderately obese 28-year-old female who was pleasant on approach. She maintained eye contact and attended to the interview. She had no involuntary movements; she was not restless or tremulous. She had a blunted facial expression. She showed psychomotor retardation. Her speech was spontaneous, halting but with normal volume. Her affect was stable and appropriate. She denied suicidal ideation or wishes. She denied homicidal ideation. She denied feeling hopeless, helpless or worthless. She ruminated about this hospitalization and the need for psychiatric treatment. She did not express clear ideas reference or paranoid ideation. She showed poverty of speech and poverty of content of speech. Her thinking was not logical. Assessment: She has prominent thinking disturbances without marked affective instability, restlessness or agitation. According to record and report from clinical staff this is different from prior presentations. I suspect that she has a partial response to the 15 mg dose of olanzapine. I question whether she was taking the medication as prescribed during the 8 days between this and her admission to [facility]. Plan: Continue inpatient hospitalization. If she doesn't withdraw the 3 day notice then petition the probate Court for involuntary hospitalization. Increase olanzapine to 10 mg by mouth twice a day. Continue discussion of alternatives to olanzapine; she may benefit from a long-acting injectable antipsychotic such as Haldol, Prolixin, Abilify, Invega oral risperidone. Continue discussions about resuming a trial of lithium. Encourage participation in therapeutic groups and activities. Evaluate clinical status and response to treatment on a daily basis.
[2019-01-12] MEDS: OLANZapine 10 MG TAB PO SCH (21:54)
[2019-01-13] MEDS: NICOTINE 7MG/24HR PATCH TRANSDERM SCH (09:13)
[2019-01-13] MEDS: CHOLECALCIFEROL 1,000 UNIT TAB PO SCH (09:14)
[2019-01-13] MEDS: buPROPion 75 MG TAB PO SCH (09:14)
[2019-01-13] MEDS: OLANZapine 10 MG TAB PO SCH ×2 (09:14→21:45)
--- NOTE | 2019-01-13 12:19 | P.PN ---
Progress Note - Text Progress Note Date: 01/13/19 linical Problems: Schizoaffective disorder, rule out bipolar disorder, rule out schizophrenia Interim history: I reviewed the medical record, interviewed the patient and discussed her treatment and treatment plan during team meeting. We clarified that she deferred the probate hearing for involuntary hospitalization while she was at [facility]. I explained her legal status several times but she did not appear to understand. She believes that she can leave the hospital when she wants because she signed a voluntary admission form. I tried to explain that a deferment maintenance that she agrees to treatment including medication and hospitalization. Despite my best efforts she did not understand this her situation. The addiction social worker will contact the courts to proceed with the probate hearing. She denied side effects increased dose of olanzapine. She remains resistant to treatment with other medications including lithium or long-acting injectable antipsychotic. Mental status exam: She presented as a moderately obese 28-year-old female who was pleasant on approach. She maintained eye contact and attended to the interview. She had no involuntary movements; she was not restless or tremulous. She had a bright expression. She showed psychomotor retardation. Her speech was spontaneous. Her affect was stable and appropriate. She denied suicidal ideation or wishes. She denied homicidal ideation. She denied feeling hopeless, helpless or worthless. She ruminated about this hospitalization and the need for psychiatric treatment. She did not express clear ideas reference or paranoid ideation. She showed poverty of speech and poverty of content of speech. Her thinking was very concrete and at times illogical. She had difficult time processing abstract concepts. She showed no insight or understanding of her mental illness. Assessment: She has prominent thinking disturbances without marked affective instability, restlessness or agitation. Plan: Continue inpatient hospitalization. Proceed with probate hearing for involuntary hospitalization. Continue olanzapine to 10 mg by mouth twice a day. Continue discussion of alternatives to olanzapine; she would benefit from a long-acting injectable antipsychotic such as Haldol, Prolixin, Abilify, Invega oral risperidone. Continue discussions about resuming a trial of lithium. Encourage participation in therapeutic groups and activities. Evaluate clinical status and response to treatment on a daily basis.
[2019-01-14] MEDS: OLANZapine 10 MG TAB PO SCH ×2 (09:38→21:19)
[2019-01-14] MEDS: buPROPion 75 MG TAB PO SCH (09:38)
[2019-01-14] MEDS: CHOLECALCIFEROL 1,000 UNIT TAB PO SCH (09:38)
[2019-01-14] MEDS: NICOTINE 7MG/24HR PATCH TRANSDERM SCH (09:38)
--- NOTE | 2019-01-14 13:13 | P.PN ---
Progress Note - Text Interval history: The patient is found in the dining room she follows me to an interview room. She indicates her mood is okay. We reviewed her psychotropic medication. She indicates she is content using the Zyprexa. Efforts have been made to discuss use of a long-acting injectable but she continues to refuse that. She states that she doesn't understand why she can't leave because she signed in voluntarily. She was reminded that there is a court process in place. She was noted to sleep 7 hours last night appetite is stable. She indicates she is attending some groups. Mental status exam: The patient is an obese female appearing her stated age she has short dark hair she is dressed in her own clothing. She is pleasant cooperative and easily directed. She indicates her mood is okay she reports no suicidal or homicidal ideation intent or plan. She reports no auditory or visual hallucinations or specific delusions although she is likely under reporting no symptoms. Thought process was linear however at one point she made an odd comment that was difficult to discern. She demonstrated no verbal or physical aggressiveness she demonstrates no involuntary repetitive movements. Insight and judgment limited. Plan: The patient will continue on the medication as written. She is not amenable to switching to a different antipsychotic that comes in a long-acting injectable form. She is awaiting a court date. Vital signs reviewed. She is encouraged to continue participating in the milieu we will monitor her for safety.
[2019-01-15] MEDS: NICOTINE 7MG/24HR PATCH TRANSDERM SCH (09:20)
[2019-01-15] MEDS: OLANZapine 10 MG TAB PO SCH ×2 (09:21→21:48)
[2019-01-15] MEDS: CHOLECALCIFEROL 1,000 UNIT TAB PO SCH (09:21)
[2019-01-15] MEDS: buPROPion 75 MG TAB PO SCH (09:21)
--- NOTE | 2019-01-15 13:12 | P.PN ---
Progress Note - Text Interval history: The patient is found in the hallway she follows me to an interview room. She indicates her mood is good she is looking forward to being discharged. She does feel that the morning dose of Zyprexa is somewhat sedating and wonders if she could take it at a different time. Otherwise she has no concerns about taking the Zyprexa as written. She has been eating meals she slept 6 hours last evening. She has been attending groups. Staff report no behavioral disturbances. Mental status exam: The patient's an overweight female who is her own clothing she has short hair and a hirsute facies. Eye contact is appropriate speech is fluent spontaneous nonpressured. She indicates her mood is good she reports no suicidal or homicidal ideation intent or plan. She reports no auditory or visual hallucinations or specific delusions. She could be underreporting symptoms. She demonstrates no verbal or physical aggressiveness. She is pleasant and cooperative throughout the interaction and easily directed. During our interaction there was no objective evidence of psychosis hypomania or dnaiel. Insight and judgment limited. Plan: The patient will continue on her current medications. We discussed the possibility of having her take the Zyprexa all at bedtime she will discuss this further with Dr. Stone. She is encouraged to continue participating in the milieu. We will monitor her for safety. Vital signs reviewed.
[2019-01-16] MEDS: NICOTINE 7MG/24HR PATCH TRANSDERM SCH (08:53)
[2019-01-16] MEDS: buPROPion 75 MG TAB PO SCH (08:53)
[2019-01-16] MEDS: OLANZapine 10 MG TAB PO SCH ×2 (08:53→20:54)
[2019-01-16] MEDS: CHOLECALCIFEROL 1,000 UNIT TAB PO SCH (08:53)
--- NOTE | 2019-01-16 14:44 | P.PN ---
Progress Note - Text Progress Note Date: 01/16/19 Clinical Problems: Schizoaffective disorder, rule out bipolar disorder, rule out schizophrenia Interim history: I reviewed the medical record, interviewed the patient and discussed her treatment and treatment plan during team meeting. She complained of sedation from the morning dose of Zyprexa and requested if she can take her total dose at nighttime. We discuss her aunts request to start a long acting injectable antipsychotic. She would not consent to changing her medication or receive a long acting injectable. She remains opposed to restarting lithium. I also spoke with her aunt who is legal guardian. Her and complained that she was overly sedated when she was taking lithium. She requested to be updated with any medication changes. She is also aware of the upcoming probate court hearing. Mental status exam: She presented as a moderately obese 28-year-old female who was pleasant on approach. She maintained eye contact and attended to the interview. She had no involuntary movements; she was not restless or tremulous. She had a bright expression. She showed psychomotor retardation. Her speech was spontaneous. Her affect was stable and appropriate. She denied suicidal ideation or wishes. She denied homicidal ideation. She denied feeling hopeless, helpless or worthless. She ruminated about this hospitalization and the need for psychiatric treatment. She did not express clear ideas reference or paranoid ideation. She was not preoccupied with "speaking Welsh" or "speaking Georgian." She showed poverty of content of speech. She denied auditory, visual or olfactory hallucinations. She denied experiencing ideas reference, broadcasting or thought control. Her thinking was concrete but goal directed. She had difficult time processing abstract concepts. Assessment: She has prominent thinking disturbances without marked affective i nstability, restlessness or agitation. Plan: Continue inpatient hospitalization. Probate hearing scheduled for 01/18/2019. Change her dosing of olanzapine to 20 mg at bedtime. Continue discussion of switching to an antipsychotic to severe helpless long-term injectable. Continue discussions about resuming a trial of lithium. Encourage participation in therapeutic groups and activities. Evaluate clinical status and response to treatment on a daily basis.
[2019-01-17] MEDS: NICOTINE 7MG/24HR PATCH TRANSDERM SCH (10:06)
[2019-01-17] MEDS: buPROPion 75 MG TAB PO SCH (10:06)
[2019-01-17] MEDS: CHOLECALCIFEROL 1,000 UNIT TAB PO SCH (10:06)
--- NOTE | 2019-01-17 14:42 | P.PN ---
Progress Note - Text Progress Note Date: 01/17/19 Clinical Problems: Schizoaffective disorder, rule out bipolar disorder, rule out schizophrenia Interim history: I reviewed the medical record, interviewed the patient and discussed her treatment and treatment plan during team meeting. She did not take the 20 mg dose of olanzapine last night. She took 10 mg. She was concerned that the 20 mg dose would cause too much sedation. I remind her agreement where instead of taking 10 mg twice a day she would take 20 mg at night. She acknowledge our agreement and "promised" take the full dose tonight. She remains opposed to changing her psychotropic medication or receiving a long acting injectable. Mental status exam: She presented as a moderately obese 28-year-old female who was pleasant on approach. She maintained eye contact and attended to the interview. She had no involuntary movements; she was not restless or tremulous. She had a bright expression. She showed psychomotor retardation. Her speech was spontaneous. Her affect was bright, stable and appropriate. She denied suicidal ideation or wishes. She denied homicidal ideation. She denied feeling hopeless, helpless or worthless. She did not express ideas reference or paranoid ideation. She was not preoccupied with "speaking Danish" or "speaking [place] Islander." She showed poverty of content of speech. She denied auditory, visual or olfactory hallucinations. She denied experiencing ideas reference, broadcasting or thought control. Her thinking was concrete but goal directed. Assessment: She is much less disorganized than on admission. Plan: Continue inpatient hospitalization. Probate hearing scheduled for 01/18/2019. Continue to encourage her to take olanzapine to 20 mg at bedtime. I continue to have concerns about compliance when she is discharged from the hospital and believed that she may remain stable longer if she were taking a long acting injectable antipsychotic. Continue discussions about resuming a trial of lithium. Encourage participation in therapeutic groups and activities. Evaluate clinical status and response to treatment on a daily basis.
[2019-01-17] MEDS: OLANZapine 10 MG TAB PO SCH (20:55)
[2019-01-18 07:17] VITALS: RESP 16; TEMP 97.7
[2019-01-18] MEDS: CHOLECALCIFEROL 1,000 UNIT TAB PO SCH (10:54)
[2019-01-18] MEDS: buPROPion 75 MG TAB PO SCH (10:54)
[2019-01-18] MEDS: NICOTINE 7MG/24HR PATCH TRANSDERM SCH (10:54)
[2019-01-18 13:29] VITALS: BMI 37.3
--- NOTE | 2019-01-18 14:35 | P.PN ---
Progress Note - Text Progress Note Date: 01/18/19 Clinical Problems: Schizoaffective disorder, rule out bipolar disorder, rule out schizophrenia Interim history: I reviewed the medical record, interviewed the patient and discussed her treatment and treatment plan during team meeting. She had the probate hearing for involuntary hospitalization this morning and stipulated to a combined treatment order. She took the 20 mg dose of olanzapine last night. She denied daytime sedation from the 20 mg dose. She remains opposed to changing her psychotropic medication or receiving a long acting injectable. Mental status exam: She presented as a moderately obese 28-year-old female who was pleasant on approach. She maintained eye contact and attended to the interview. She had no involuntary movements; she was not restless or tremulous. She had a bright expression. Her speech was spontaneous. Her affect was bright, stable and appropriate. She denied suicidal ideation or wishes. She denied homicidal ideation. She denied feeling hopeless, helpless or worthless. She did not express ideas reference or paranoid ideati on. She was not preoccupied with "speaking Yakut" or "speaking Khmer." She showed poverty of content of speech. She denied auditory, visual or olfactory hallucinations. She denied experiencing ideas reference, broadcasting or thought control. Her thinking was concrete but goal directed. Assessment: She is much improved from admission Plan: Continue inpatient hospitalization. Plan for discharge on 01/19/2019. Continue to encourage her to take olanzapine to 20 mg at bedtime. I continue to have concerns about compliance when she is discharged from the hospital and believed that she may remain stable longer if she were taking a long acting injectable antipsychotic. Continue discussions about resuming a trial of lithium. Encourage participation in therapeutic groups and activities. Evaluate clinical status and response to treatment on a daily basis.
[2019-01-18] MEDS: OLANZapine 10 MG TAB PO SCH (20:34)
[2019-01-19 06:52] VITALS: BP 116/75; PULSE 65
[2019-01-19] MEDS: buPROPion 75 MG TAB PO SCH (08:57)
[2019-01-19] MEDS: CHOLECALCIFEROL 1,000 UNIT TAB PO SCH (08:58)
[2019-01-19] MEDS: NICOTINE 7MG/24HR PATCH TRANSDERM SCH (08:58)
--- NOTE | 2019-01-19 15:42 | P.DS ---
Providers Date of admission: 01/10/19 18:51 Attending physician: Chip Stone MD Consults: 01/10/19 19:33 Consult Physician Routine Consulting Provider: Chitra Physician Consult Reason/Comments: H&P and medical Do you want consulting provider notified?: Yes Primary care physician: [facility] Diagnosis(es) (1) Bipolar disorder Status: Chronic Priority: High (2) Noncompliance with medication regimen Status: Resolved Priority: High (3) Tobacco use Status: Chronic Priority: Medium Hospital Course: She is a 28-year-old single female admitted to the [facility] at the behest of her aunt and legal guardian. She was unable to provide a coherent reason for this hospitalization. In the emergency room she told the EPS nurse that she she felt that she was "outside my brain. ... Been feeling manic since I was born. My name is Katia. Like I'm all man, duh! There's frozen fish on the sign of my parking lot and I stole a grocery cart. I took it back though. ..." Because she was unable to provide a coherent explanation for this hospitalization we called her aunt. Her aunt stated that she has not been doing well since she was discharged from [facility] December 26. She presented to our emergency room on 12/18/2018. She told the ED physician that she called law enforcement because she did not feel safe at home. Her aunt completed a petition for hospitalization. According to the petition she was incoherent, she didn't know the day, destroyed her ID, was not sleeping or eating properly, switched white or garden did not know where she was spending her money, thinks that people are trying to steal her identity and not taking her prescription medications. Because we did not have an available psychiatric bed we transferred her to [facility]. She stated that her niece was paranoid, disorganized and confused since she left [facility]. She was living with her aunt since she [facility] because her aunt was concerned about her mental health. On the day prior to admission she spoke 31 cigarettes and skipped her afternoon dose of medications. She talked about her niece hearing voices and making incoherent statements. This is her fifth psychiatric hospitalization. She was initially hospitalized at in [facility]. She's been repeatedly diagnosed with a bipolar illness. She denied history of suicide attempts. She was treated at [facility] in 2018. Her aunt transferred her care to [facility] concerned about the quality of services at [facility]. We admitted her to the psychiatric unit involuntarily under the care of this real estate underwriter. The e business consultant editor trade journal completed the initial physical exam and medical history and diagnosed polycystic ovarian disease, concerned her diabetes and morbid obesity. We completed the supporting documents and submitted the Petition to probate court. We resumed olanzapine and gradually titrated the dose to 20 mg daily. We continued Wellbutrin but reduce the dose to 75 mg daily concerned for risk of a manic episode. The patient refused other psychotropic medications included lithium, Depakote or long-term injectable antipsychotic medications. Her overall mental status gradually improved. During the probate hearing she stipulated to the involuntary treatment order. At the time of discharge she presented as a moderately obese young female who was pleasant on approach. Her hair was disheveled but she was casually dressed. She had a blunted but bright facial expression. She showed slight psychomotor retardation but no abnormal speech was spontaneous with decreased rate and rhythm. Her affect was blunted but stable and appropriate. She denied suicidal ideation or wishes, she denied feeling hopeless, helpless or worthless. She did not express ideas reference, paranoid ideation or delusional thoughts. Her thinking was concrete but her associations were coherent, logical and goal directed. She denied hallucinations and did not appear to be responding to internal stimuli. Patient Condition at Discharge: Fair Plan - Discharge Summary Discharge Rx Participant: No New Discharge Prescriptions: New Nicotine 7Mg/24Hr Patch [Habitrol] 1 patch TRANSDERM DAILY 14 Days #14 patch buPROPion [Wellbutrin] 75 mg PO DAILY 30 Days #30 tab OLANZapine [ZyPREXA] 20 mg PO HS 30 Days #30 tab Continue Cholecalciferol [Vitamin D3 (25 Mcg = 1000 Iu)] 5,000 unit PO DAILY Discontinued buPROPion XL [Wellbutrin Xl] 150 mg PO DAILY OLANZapine ODT [ZyPREXA ZYDIS] 5 mg PO TID Discharge Medication List Cholecalciferol [Vitamin D3 (25 Mcg = 1000 Iu)] 5,000 unit PO DAILY 11/23/18 [History] Nicotine 7Mg/24Hr Patch [Habitrol] 1 patch TRANSDERM DAILY 14 Days #14 patch 01/19/19 [Rx] OLANZapine [ZyPREXA] 20 mg PO HS 30 Days #30 tab 01/19/19 [Rx] buPROPion [Wellbutrin] 75 mg PO DAILY 30 Days #30 tab 01/19/19 [Rx] Follow up Appointment(s)/Referral(s): [facility] [Outside] - 01/19/19 3:30 pm (appointment w/ joy) [facility] [Primary Care Provider] - 1-2 days Patient Instructions/Handouts: Suicide Prevention (GEN) Activity/Diet/Wound Care/Special Instructions: Activity and diet as tolerated. Avoid the use of street drugs and alcohol. Take all medications as prescribed. When you are in need of refills on your medications please contact your medical provider and/or outpatient psychiatrist to have this done. Please go to scheduled outpatient appointment for aftercare treatment. If symptoms return or become worse, call the crisis line at and/or go to the nearest emergency room for evaluation. Discharge Disposition: HOME SELF-CARE
== END 2019-01-19 14:27 | disposition home or self-care (01) | DRG 885 ==
LOC: EC 08:21 → 3MHU 18:51
PROVIDERS: ADMIT Psychiatry & Neurology Psychiatry; ATTEND Psychiatry & Neurology Psychiatry
DX: F31.2 Bipolar disorder, current episode manic severe with psychotic features (principal); E66.9 Obesity, unspecified; Z68.37 Body mass index [BMI] 37.0-37.9, adult; F17.210 Nicotine dependence, cigarettes, uncomplicated; F41.0 Panic disorder [episodic paroxysmal anxiety]; H53.2 Diplopia; Z62.810 Personal history of physical and sexual abuse in childhood; Z91.14 Patient's other noncompliance with medication regimen; E28.2 Polycystic ovarian syndrome; G43.909 Migraine, unspecified, not intractable, without status migrainosus; Z88.8 Allergy status to other drugs, medicaments and biological substances; Z79.899 Other long term (current) drug therapy
CPT/HCPCS: 80053; 80061; 80306; 81001; 82075; 83036; 84443; 85025; 99285

== ENCOUNTER 2019-02-08 21:58 | Inpatient (IN) | payer MEDICAID, OTHER ==
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
[2019-02-09] MEDS ORDERED: MAGNESIUM HYDROXIDE 2,400 MG/10 ML CUP PO PRN (04:51)
[2019-02-09] MEDS ORDERED: ACETAMINOPHEN TAB 325 MG TAB PO PRN (04:51)
[2019-02-09] MEDS ORDERED: MAG HYDROX/AL HYDROX/SIMETH 30 ML CUP PO PRN (04:51)
[2019-02-09] MEDS ORDERED: ZIPRASIDONE 20 MG VIAL IM PRN (04:51)
[2019-02-09 08:13] LABS: Basophils # (A) 0.1 k/uL (0-0.2); Basophils % (A) 1 %; Eosinophils # (A) 0.2 k/uL (0-0.7); Eosinophils % (A) 2 %; HCT 43.4 % (34.0-46.0); HGB 14.2 gm/dL (11.4-16.0); Lymphocytes # (A) 1.9 k/uL (1.0-4.8); Lymphocytes % (A) 24 %; MCH 27.8 pg (25.0-35.0); MCHC 32.7 g/dL (31.0-37.0); MCV 84.9 fL (80.0-100.0); Mean Platelet Volume 8.6; Monocytes # (A) 0.4 k/uL (0-1.0); Monocytes % (A) 5 %; Neutrophils # (A) 5.2 k/uL (1.3-7.7); Neutrophils % (A) 66 %; Platelet Count 272 k/uL (150-450); RBC 5.11 m/uL (3.80-5.40); RDW 12.9 % (11.5-15.5); WBC 7.9 k/uL (3.8-10.6)
[2019-02-09 08:23] LABS: ALT 22 U/L (4-34); AST 31 U/L (14-36); African American GFR (CKD) >90 (>60 ml/min/1.73 sqM); Albumin 4.4 g/dL (3.5-5.0); Alkaline Phosphatase 56 U/L (38-126); Anion Gap 8 mmol/L; Bilirubin, Delta 0.2 mg/dL (0.0-0.2); Bilirubin,Unconjugated 0.8 mg/dL (0.0-1.1); Blood Urea Nitrogen 14 mg/dL (7-17); Calcium 9.5 mg/dL (8.4-10.2); Carbon Dioxide 27 mmol/L (22-30); Chloride 107 mmol/L (98-107); Glucose 77 mg/dL (74-99); Non-African American GFR(CKD) 88 (>60 ml/min/1.73 sqM); Potassium 4.4 mmol/L (3.5-5.1); Sodium 142 mmol/L (137-145); Total Protein 7.2 g/dL (6.3-8.2)
[2019-02-09] MEDS: NICOTINE 14MG/24HR PATCH TRANSDERM SCH ×2 (09:48→12:45)
[2019-02-09] MEDS: PNEUMOCOCCAL VACC-PNEUMOVAX 23 25 MCG/0.5 ML VIAL IM ONE ×2 (11:34→14:16)
[2019-02-09] MEDS: INFLUENZA VACCINE (6 MOS+) 60 MCG/0.5 ML SYRINGE IM ONE ×2 (11:34→14:15)
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
[2019-02-09] MEDS: buPROPion 75 MG TAB PO SCH (12:45)
[2019-02-09 13:07] LABS: Hemoglobin A1C 4.8 % (4.0-6.0)
[2019-02-09] MEDS: OLANZapine 10 MG TAB PO SCH (20:40)
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
[2019-02-10] MEDS: NICOTINE 14MG/24HR PATCH TRANSDERM SCH ×3 (09:41→12:36)
[2019-02-10] MEDS: buPROPion 75 MG TAB PO SCH ×3 (09:41→12:36)
--- NOTE | 2019-02-10 14:12 | P.PN ---
Subjective Progress Note Date: 02/10/19 Subjective: Patient seen and chart reviewed. The case was discussed with the team. The patient reports feeling a little better. The patient reports some improvement in depression and anxiety but continues to report periods of dysphoric mood and a little anxiety. The patient is cooperative and compliant with the treatment on the unit. The patient reports attending and participating in some milieu the rapy. The patient reports fair sleep and appetite. The patient reports occasional crying spells and panic attacks at this time. The patient denies any auditory or visual hallucinations. The patient denies any active suicidal homicidal or paranoid ideations at the time of the interview. Objective - Vital Signs Vital signs: Vital Signs Temp 98.1 F 02/10/19 05:23 Pulse 74 02/10/19 05:23 Resp 15 02/10/19 05:23 BP 138/95 02/10/19 05:23 Pulse Ox 97 02/10/19 05:23 - Exam Mental Status Examination: General Appearance: Patient appears to be stated age is alert, directable. Improving hygiene and grooming. Behavior: Patient is calmly sitting on the chair without any agitated behavior. Speech: Patient's speech is fluent and nonpressured. anxious tone. Mood/Affect: Patient reports their mood is depressed and anxious, mildly improving, affect is congruent with improved range. Suicidality/Homicidality: Patient denies having any suicidal or homicidal ideation intent or plan. Perceptions: Patient denies any auditory or visual hallucinations. Though content/process: There is no evidence of any delusional thought content and thought process is linear and goal-directed. Memory and concentration: AOX3, grossly intact for the purposes of this session Judgment and insight: poor, mildly improving - Labs CBC & Chem 7: 02/09/19 07:54 02/09/19 07:54 Assessment and Plan Assessment: IMPRESSIONS: Schizoaffective disorder, mixed episode Nicotine dependence Plan: PLAN: -Patient is admitted under voluntary status to MHU for stabilization of psychiatric symptoms and safety. Patient signed adult voluntary form. Precautions: Continue 15 minutes check for safety. Consults internal medicine team for management of medical problems Provide the patient individual, group therapy, substance use disorder counseling to give better insight and learn coping skills. One-to-one supportive psychotherapy was provided The patient was placed on 15 minute checks. -Medications : Wellbutrin 75 mg by mouth daily Zyprexa 20 mg by mouth daily at bedtime. -Geodon PRN for agitation/aggression -Patient was informed of the risks, benefits and side effects of the medication. -NRT - nicotine patch -OCTAVIO on board for discharge planning. Discharge patient to OUTPATIENT services upon a stabilization Expected LOS: 3-5 days
[2019-02-10] MEDS: OLANZapine 10 MG TAB PO SCH (21:14)
[2019-02-11] MEDS: NICOTINE 14MG/24HR PATCH TRANSDERM SCH (08:50)
[2019-02-11] MEDS: buPROPion 75 MG TAB PO SCH (08:50)
--- NOTE | 2019-02-11 13:19 | P.PN ---
Subjective Progress Note Date: 02/11/19 The patient seen and chart reviewed. The patient reports feeling better. She reports improvement in sleep and appetite. Patient also reports improvement in her mood and anxiety. The patient reports that auditory hallucinations are improving but she continues to talk to herself. The patient denies any problems with sleep or appetite. She reports some improvement in energy and motivation. The patient is pleasant and cooperative during the interview she denies any suicidal or homicidal ideations at this time. The patient has been cooperative and compliant with the treatment and denies any side effects on the medications. Objective - Vital Signs Vital signs: Vital Signs Temp 97.9 F 02/11/19 06:24 Pulse 97 02/11/19 08:51 Resp 16 02/11/19 06:24 BP 125/73 02/11/19 08:51 Pulse Ox 97 02/10/19 05:23 - Exam Mental Status Examination: General Appearance: Patient appears to be stated age is alert, directable. Improving hygiene and grooming. Behavior: Patient is calmly sitting on the chair without any agitated behavior. Speech: Patient's speech is fluent and nonpressured. anxious tone. Mood/Affect: Patient reports their mood is depressed and anxious, mildly improving, affect is congruent with improved range. Suicidality/Homicidality: Patient denies having any suicidal or homicidal ideation intent or plan. Perceptions: Patient denies any auditory or visual hallucinations. Though content/process: There is no evidence of any delusional thought content and thought process is linear and goal-directed. Memory and concentration: AOX3, grossly intact for the purposes of this session Judgment and insight: poor, mildly improving - Labs CBC & Chem 7: 02/09/19 07:54 02/09/19 07:54 Assessment and Plan Assessment: IMPRESSIONS: Schizoaffective disorder, mixed episode Nicotine dependence Plan: PLAN: -Patient is admitted under voluntary status to MHU for stabilization of psychiatric symptoms and safety. Patient signed adult voluntary form. Precautions: Continue 15 minutes check for safety. Consults internal medicine team for management of medical problems Provide the patient individual, group therapy, substance use disorder counseling to give better insight and learn coping skills. One-to-one supportive psychotherapy was provided The patient was placed on 15 minute checks. -Medications : Wellbutrin 75 mg by mouth daily Zyprexa 20 mg by mouth daily at bedtime. -Geodon PRN for agitation/aggression -Patient was informed of the risks, benefits and side effects of the medication. -NRT - nicotine patch -SW on board for discharge planning. Discharge patient to OUTPATIENT services upon a stabilization Expected LOS: 3-5 days
[2019-02-11] MEDS: OLANZapine 10 MG TAB PO SCH (20:49)
[2019-02-12] MEDS: NICOTINE 14MG/24HR PATCH TRANSDERM SCH (09:06)
[2019-02-12] MEDS: buPROPion 75 MG TAB PO SCH (09:07)
--- NOTE | 2019-02-12 10:43 | P.PN ---
Subjective Progress Note Date: 02/12/19 The patient seen and chart reviewed. The patient continues to report improvement in mood and anxiety. She reports good sleep and appetite. The patient is pleasant and cooperative on the unit and is compliant with the treatment. The patient denies any auditory or visual hallucinations she denies any crying spells or panic attacks. The patient denies any active suicidal or homicidal ideations but continues to report vague paranoia about her mother's killing her father. The patient denies any side effects on the medications. Objective - Vital Signs Vital signs: Vital Signs Temp 97.9 F 02/12/19 06:23 Pulse 109 H 02/12/19 09:08 Resp 20 02/12/19 09:08 BP 123/81 02/12/19 09:08 Pulse Ox 97 02/10/19 05:23 Intake & Output 02/11/19 02/12/19 02/12/19 18:59 06:59 18:59 Weight 112 kg - Exam Mental Status Examination: General Appearance: Patient appears to be stated age is alert, directable. Improving hygiene and grooming. Behavior: Patient is calmly sitting on the chair without any agitated behavior. Speech: Patient's speech is fluent and nonpressured. anxious tone. Mood/Affect: Patient reports their mood is depressed and anxious, mildly improving, affect is congruent with improved range. Suicidality/Homicidality: Patient denies having any suicidal or homicidal ideation intent or plan. Perceptions: Patient denies any auditory or visual hallucinations. Though content/process: There is no evidence of any delusional thought content and thought process is linear and goal-directed. Memory and concentration: AOX3, grossly intact for the purposes of this session Judgment and insight: poor, mildly improving - Labs CBC & Chem 7: 02/09/19 07:54 02/09/19 07:54 Assessment and Plan Assessment: IMPRESSIONS: Schizoaffective disorder, mixed episode Nicotine dependence Plan: PLAN: -Patient is admitted under voluntary status to MHU for stabilization of psychiatric symptoms and safety. Patient signed adult voluntary form. Precautions: Continue 15 minutes check for safety. Consults internal medicine team for management of medical problems Provide the patient individual, group therapy, substance use disorder counseling to give be tter insight and learn coping skills. One-to-one supportive psychotherapy was provided The patient was placed on 15 minute checks. -Medications : Wellbutrin 75 mg by mouth daily Zyprexa 20 mg by mouth daily at bedtime. -Geodon PRN for agitation/aggression -Patient was informed of the risks, benefits and side effects of the medication. -NRT - nicotine patch -SW on board for discharge planning. Discharge patient to OUTPATIENT services upon a stabilization Expected LOS: 3-5 days
[2019-02-12] MEDS: OLANZapine 10 MG TAB PO SCH (21:09)
[2019-02-13] MEDS: buPROPion 75 MG TAB PO SCH (08:32)
[2019-02-13] MEDS: NICOTINE 14MG/24HR PATCH TRANSDERM SCH (08:32)
--- NOTE | 2019-02-13 16:34 | P.PN ---
Subjective Progress Note Date: 02/13/19 Principal diagnosis: Schizoaffective disorder, nicotine use disorder. I reviewed the medical record, interviewed the patient and discuss her treatment and treatment plan during team meeting. She is a 28-year-old single female who was readmitted to the psychiatric unit voluntarily after refusing to take her psychiatric and becoming more agitated and angry. She denied problems or concerns. She admitted that she had stopped taking the medication in a argument with her aunt. She has not been agitated or aggressive on the psychiatric unit. Her guardian has requested the social media senior associate assist with referral and her to [facility] for long-term residential treatment. Objective - Vital Signs Vital signs: Vital Signs Temp 98 F 02/13/19 06:12 Pulse 63 02/13/19 06:12 Resp 16 02/13/19 06:12 BP 95/53 02/13/19 06:12 Pulse Ox 97 02/10/19 05:23 Intake & Output 02/12/19 02/13/19 02/13/19 18:59 06:59 18:59 Weight 112 kg - Exam She presented as a casually groomed obese female who had prominent facial hair. She had a bright but blunted facial expression. She showed slight psychomotor retardation but no abnormal movements. Her speech was spontaneous with normal rate and rhythm. Her affect was stable and appropriate. She denied suicidal ideation or wishes. She denied homicidal ideation. She denied feeling hopeless, helpless or worthless. She does not express ideas reference or paranoid ideation. Her thinking was concrete but her associations were coherent and logical. She denied hallucinations and did not appear to be responding to internal stimuli. - Labs CBC & Chem 7: 02/09/19 07:54 02/09/19 07:54 Assessment and Plan Assessment: She has been compliant with medications since admission to the unit. She is not displaying any episodes of aggression, agitation or irritability. Plan: Continue inpatient hospitalization. Continue safety precautions. Encourage continued participation in therapeutic groups and activities. Continue Wellbutrin 75 mg daily and Zyprexa 20 mg at bedtime. Social work to coordinate discharge and aftercare as appropriate. Evaluate clinical status response to treatment on a daily basis.
[2019-02-13] MEDS: OLANZapine 10 MG TAB PO SCH (20:17)
[2019-02-14] MEDS: buPROPion 75 MG TAB PO SCH (08:25)
[2019-02-14] MEDS: NICOTINE 14MG/24HR PATCH TRANSDERM SCH (08:25)
--- NOTE | 2019-02-14 15:39 | P.PN ---
Subjective Progress Note Date: 02/14/19 Principal diagnosis: Schizoaffective disorder, nicotine use disorder. I reviewed the medical record, interviewed the patient and discuss her treatment and treatment plan during team meeting. She denied problems or concerns. She denied current experiencing auditory hallucinations, thought insertion, thought broadcasting or thought control. She is pleasant on the unit is not demonstrated episodes of behavioral dyscontrol. The social science manager has spoken with her guardian and explained that Katia would need to be referred to [facility] for outpatient mental health services and pending sale to [facility] would have to make to [facility] for long- term residential services. Objective - Vital Signs Vital signs: Vital Signs Temp 97.9 F 02/14/19 06:42 Pulse 74 02/14/19 06:42 Resp 17 02/14/19 06:42 BP 115/64 02/14/19 06:42 Pulse Ox 98 02/14/19 06:42 - Exam She presented as a casually groomed obese female who had prominent facial hair. She had a bright but blunted facial expression. She showed slight psychomotor retardation but no abnormal movements. Her speech was spontaneous with normal rate and rhythm. Her affect was stable and appropriate. She denied suicidal ideation or wishes. She denied homicidal ideation. She denied feeling hopeless, helpless or worthless. She does not express ideas reference or paranoid ideation. Her thinking was concrete but her associations were coherent and logical. She showed poverty of content of speech. She denied hallucinations and did not appear to be responding to internal stimuli. - Labs CBC & Chem 7: 02/09/19 07:54 02/09/19 07:54 Assessment and Plan Assessment: She has been compliant with medications since admission to the unit. She is not displaying any episodes of aggression, agitation or irritability. Plan: Continue inpatient hospitalization. Continue safety precautions. Encourage continued participation in therapeutic groups and activities. Continue Wellbutrin 75 mg daily and Zyprexa 20 mg at bedtime. Social work to coordinate discharge and aftercare including referral to [facility] for outpatient mental health services. Evaluate clinical status response to treatment on a daily basis.
[2019-02-14] MEDS: OLANZapine 10 MG TAB PO SCH (20:43)
[2019-02-15] MEDS: NICOTINE 14MG/24HR PATCH TRANSDERM SCH (08:35)
[2019-02-15] MEDS: buPROPion 75 MG TAB PO SCH (08:37)
[2019-02-15 08:38] VITALS: RESP 20
--- NOTE | 2019-02-15 15:41 | P.PN ---
Subjective Progress Note Date: 02/15/19 Principal diagnosis: Schizoaffective disorder, nicotine use disorder. I reviewed the medical record, interviewed the patient and discuss her treatment and treatment plan during team meeting. Again, she denied problems or concerns. She denied current experiencing auditory hallucinations, thought insertion, thought broadcasting or thought control. She is pleasant on the unit and has not demonstrated episodes of behavioral dyscontrol or aggression. The social service assistant's recent family meeting for tomorrow. The plan is to discharge her to her apartment and reestablish services with [facility]. Her aunt has arranged to stay with her for the first week after d ischarge. Objective - Vital Signs Vital signs: Vital Signs Temp 97.4 F L 02/15/19 06:36 Pulse 86 02/15/19 08:37 Resp 20 02/15/19 08:37 BP 94/65 02/15/19 08:37 Pulse Ox 98 02/14/19 06:42 - Exam She presented as a casually groomed obese female who had prominent facial hair. She had a bright facial expression. She showed no abnormalities in psychomotor activity.. Her speech was spontaneous with normal rate and rhythm. Her affect was stable and appropriate. She denied suicidal ideation or wishes. She denied homicidal ideation. She denied feeling hopeless, helpless or worthless. She does not express ideas reference or paranoid ideation. Her thinking was concrete but her associations were coherent and logical. She showed poverty of content of speech. She denied hallucinations and did not appear to be responding to internal stimuli. - Labs CBC & Chem 7: 02/09/19 07:54 02/09/19 07:54 Assessment and Plan Assessment: She has been compliant with medications since admission to the unit. She is not displaying any episodes of aggression, agitation or irritability. Overall, she is moderately mentally ill and wants to improve from admission. Plan: Plan for discharge on 02/16/2019 following the family meeting. Continue safety precautions. Encourage continued participation in therapeutic groups and activities. Continue Wellbutrin 75 mg daily and Zyprexa 20 mg at bedtime. Social work to coordinate discharge and aftercare including referral to [facility] for outpatient mental health services. Evaluate clinical status response to treatment on a daily basis.
[2019-02-15] MEDS: OLANZapine 10 MG TAB PO SCH (20:13)
[2019-02-16] MEDS: NICOTINE 14MG/24HR PATCH TRANSDERM SCH (08:23)
[2019-02-16] MEDS: buPROPion 75 MG TAB PO SCH (08:24)
[2019-02-16 08:27] VITALS: BP 117/73; PULSE 82; TEMP 97.9
--- NOTE | 2019-02-16 12:52 | P.DS ---
Providers Date of admission: 02/09/19 03:44 Attending physician: Chip Stone MD Consults: 02/09/19 04:51 Consult Physician Routine Consulting Provider: Chitra Yeboah Consult Reason/Comments: For H & P for Medical Follow Up Do you want consulting provider notified?: Yes Primary care physician: [facility] Diagnosis(es) (1) Schizoaffective disorder, bipolar type Current Visit: Yes Status: Acute Priority: High (2) Tobacco use Current Visit: No Status: Chronic Priority: Medium Hospital Course: She is a 28-year-old single female who has a history of a schizoaffective disorder. [facility] complaining that she has become more irritable and threatening. She is well known to this service from prior hospitalizations. She was last discharged in January 2019 with the diagnoses schizoaffective disorder. Although past admissions were related to noncompliance she denied that she had stopped taking her antipsychotic olanzapine. She was calm and cooperative during her admission assessment. She denied experiencing auditory or visual hallucinations. She did not demonstrate flight of ideas, racing thoughts or increased goal-directed activity. We admitted her to psychiatric unit initially under the care of Dr. Steele. We provided a biopsychosocial assessment. The government operations consultant ash collector completed initi al physical exam and medical history and did not identify the current medical problem. We resumed her preadmission medications including Zyprexa 20 mg at bedtime, Wellbutrin 75 mg daily and Habitrol 14 mg daily. She posed no management problem and had no episodes of behavioral dyscontrol. During this hospitalization she did not demonstrate periods of agitation, hostility or aggression. She participated actively in therapeutic groups and activities. She interacted appropriately with staff and peers. Her guardian inquired about referral for long-term residential treatment at [facility]. The social media intern place to guardian contact with the admissions office at [facility]. The guardian is unable to afford the cost of care and requested a referral to [facility] for assistance. The social media intern coordinated referral as requested by the guardian. At time of discharge she presented as a moderately obese young female with prominent facial hair. She had short cropped hair. She made eye contact and attended the interview. She had no prominent physical abnormalities. She had a blunted but bright facial expression. She showed no abnormality of psychomotor activity. She had no abnormal movements. Her speech was spontaneous with normal rate, rhythm and volume. Affect was bright, stable and appropriate. She denied suicidal ideation, wishes or homicidal ideation. She denied feeling hopeless, helpless or worthless. She did not express ideas reference, paranoid ideation or delusional thoughts. Her thinking was concrete but her associations were coherent and logical. She denied hallucinations did not appear to responding to internal stimuli. Patient Condition at Discharge: Stable Plan - Discharge Summary Discharge Rx Participant: No New Discharge Prescriptions: New Nicotine 14Mg/24Hr Patch [Habitrol] 1 patch TRANSDERM DAILY 28 Days #28 patch Continue Cholecalciferol [Vitamin D3 (25 Mcg = 1000 Iu)] 5,000 unit PO DAILY buPROPion [Wellbutrin] 75 mg PO DAILY 30 Days #30 tab OLANZapine [ZyPREXA] 20 mg PO HS 30 Days #30 tab Discontinued Nicotine 7Mg/24Hr Patch [Habitrol] 1 patch TRANSDERM DAILY 14 Days #14 patch Discharge Medication List Cholecalciferol [Vitamin D3 (25 Mcg = 1000 Iu)] 5,000 unit PO DAILY 11/23/18 [History] Nicotine 14Mg/24Hr Patch [Habitrol] 1 patch TRANSDERM DAILY 28 Days #28 patch 02/16/19 [Rx] OLANZapine [ZyPREXA] 20 mg PO HS 30 Days #30 tab 02/16/19 [Rx] buPROPion [Wellbutrin] 75 mg PO DAILY 30 Days #30 tab 02/16/19 [Rx] Follow up Appointment(s)/Referral(s): [facility] [Outside] - 02/16/19 1:00 pm (walk in intake) [facility] [Primary Care Provider] - 1-2 days Patient Instructions/Handouts: Mood Disorders (DC), Anxiety (GEN) Activity/Diet/Wound Care/Special Instructions: Activity and diet as tolerated. Avoid the use of street drugs and alcohol. Take all medications as prescribed. When you are in need of refills on your medic ations please contact your medical provider and/or outpatient psychiatrist to have this done. Please go to scheduled outpatient appointment for aftercare treatment. If symptoms return or become worse, call the crisis line at and/or go to the nearest emergency room for evaluation. Discharge Disposition: HOME SELF-CARE
== END 2019-02-16 12:29 | disposition home or self-care (01) | DRG 885 ==
LOC: EC 21:58 → 3MHU 02-09 03:44
PROVIDERS: ADMIT Psychiatry & Neurology Psychiatry; ATTEND Psychiatry & Neurology Psychiatry
DX: F25.0 Schizoaffective disorder, bipolar type (principal); F41.0 Panic disorder [episodic paroxysmal anxiety]; F17.200 Nicotine dependence, unspecified, uncomplicated; E66.9 Obesity, unspecified; Z83.3 Family history of diabetes mellitus; Z79.899 Other long term (current) drug therapy; Z68.38 Body mass index [BMI] 38.0-38.9, adult
CPT/HCPCS: 80053; 82075; 82248; 83036; 84443; 85025; 90686; 90732; 93005; 99285

== ENCOUNTER 2019-04-18 13:42 | Inpatient (IN) | payer MEDICAID, OTHER ==
[2019-04-18] MEDS ORDERED: HALOPERIDOL LACTATE 5 MG/ML 1 ML VIAL IM STA (14:26)
[2019-04-18] MEDS ORDERED: LORazepam 2 MG/ML INJ IM STA (14:26)
[2019-04-18] MEDS ORDERED: diphenhydrAMINE 50 MG/ML 1 ML VIAL IM STA (14:27)
--- NOTE | 2019-04-18 14:36 | ED ---
General Adult HPI - General Source: patient, police Mode of arrival: ambulatory Limitations: no limitations <Morro Patel Brennan - Last Filed: 04/18/19 16:52> <Bonny Tran Dru - Last Filed: 04/23/19 02:22> - General Chief complaint: Psychiatric Symptoms Stated complaint: Mental Health Time Seen by Provider: 04/18/19 14:26 - History of Present Illness Initial comments: Dictation was produced using [employer] dictation software. please excuse any grammatical, word or spelling errors. Chief Complaint: 28-year-old female comes via petition. History of Present Illness: 28-year-old female she has past medical history of psychiatric disease she is brought in by law enforcement. Patient is petition by law enforcement for medical evaluation. Patient allegedly has been making threats towards her family member. Patient is a poor historian. She states she hears voices that is not my business. Voices of her family members. Patient denies any suicidal or homicidal ideation. She does have visual hallucinations when she exercises. Patient states she is trying to save the world. The ROS documented in this emergency department record has been reviewed and confirmed by me. Those systems with pertinent positive or negative responses have been documented in the HPI. All other systems are other negative and/or noncontributory. PHYSICAL EXAM: General Impression: agitated HEENT: Normocephalic atraumatic, extra-ocular movements intact, pupils equal and reactive to light bilaterally, mucous membranes moist. Cardiovascular: Heart regular rate and rhythm, S1&S2 audible, no murmurs, rubs or gallops Chest: Lungs clear to auscultation bilaterally, no rhonchi, no wheeze, no rales Abdomen: Bowel sounds present, abdomen soft, non-tender, non-distended, no organomegaly Musculoskeletal: Pulses present and equal in all extremities, no peripheral edema Motor: no focal deficits noted Neurological: CN II-XII grossly intact, no focal motor or sensory deficits noted Skin: Intact with no visualized rashes Psych: Manic ED course: 28 Year-old feel presents with acute psychosis. Upon arrival are wi thin acceptable limits. Patient is psychotic and tended to escape the emergency room. She was gently wrestled to the ground, placed in a stretcher with restraints and given some sedation. Petition was reviewed. Patient was given verbal de-escalation and became little more calm. She rates removed. Patient then became agitated again started kicking the parsons. She was placed in restraints again and given Haldol, Ativan and diphenhydramine. Patient reevaluated bedside and resting comfortably. Laboratory evaluation was obtained. Monocytosis of 11.0 likely secondary to stress. Metabolic panel shows carbon accident 13 with anion gap of 19. This likely reflects lactic acidosis from the unrestrained. Repeat labs were obtained. To ensure improvement. Patient is signed out to Dr. Tran for follow-up of repeat labs. If labs are improved patient will be admitted to inpatient psychiatry. (Morro Patel) - Related Data Home Medications Medication Instructions Recorded Confirmed Baclofen [Lioresal] 10 mg PO HS PRN 04/18/19 04/18/19 Cholecalciferol (Vitamin D3) 125 mcg PO DAILY 04/18/19 04/18/19 [Vitamin D3] LORazepam [Ativan] 0.5 mg PO HS PRN 04/18/19 04/18/19 Medroxyprogesterone Acetate 150 mg IM Q84D 04/18/19 04/18/19 [Depo-Provera] Nicotine Polacrilex [Nicorette] 2 mg BUCCAL Q2H PRN 04/18/19 04/18/19 Spironolactone [Aldactone] 50 mg PO DAILY 04/18/19 04/18/19 Allergies Allergy/AdvReac Type Severity Reaction Status Date / Time lamotrigine [From Lamictal] Allergy Rash/Hives Verified 04/18/19 20:15 Review of Systems ROS Other: All systems not noted in ROS Statement are negative. <Morro Patel - Last Filed: 04/18/19 16:52> ROS Other: All systems not noted in ROS Statement are negative. <Bonny Tran - Last Filed: 04/23/19 02:22> ROS Statement: Those systems with pertinent positive or pertinent negative responses have been documented in the HPI. Past Medical History Past Medical History: No Reported History Additional Past Medical History / Comment(s): PCOS, migraines heart murmur History of Any Multi-Drug Resistant Organisms: None Reported Past Surgical History: No Surgical Hx Reported Additional Past Surgical History / Comment(s): Hx of heart murmur Past Anesthesia/Blood Transfusion Reactions: No Reported Reaction Additional Past Anesthesia/Blood Transfusion Reaction / Comment(s): clausterphobia Past Psychological History: Anxiety, Bipolar, Depression, Panic Disorder, Schizoaffective Disorder Smoking Status: Current every day smoker Past Alcohol Use History: None Reported Past Drug Use History: None Reported - Past Family History Father Additional Family Medical History / Comment(s): Mother History Unknown: Yes Grandmother Family Medical History: Diabetes Mellitus <Morro Patle - Last Filed: 04/18/19 16:52> General Exam Limitations: no limitations <Morro Patel - Last Filed: 04/18/19 16:52> Course Vital Signs 04/18/19 04/18/19 13:57 19:20 Temperature 98.1 F 97.7 F Pulse Rate 95 94 Respiratory 20 18 Rate Blood Pressure 136/94 121/73 O2 Sat by Pulse 99 98 Oximetry Procedures - Restraint - Face to Face Restraint Occurrence 1 Patient's Immediate Situation: Endangers self safety, Endangers others' safety, Endangers staff safety Patient's Reaction to the Intervention: Hostile, Anxious, Bizarre Patient's Medical & Behavioral Condition: Awake, Alert, Follows directions, Paranoid Need to Continue or Terminate Restraint or Seclusion: Continue Face to Face Eval of Restraint Date: 04/18/19 Face to Face Eval of Restraint Time: 14:15 Restraint Occurrence 2 Patient's Immediate Situation: Endangers self safety, Endangers others' safety, Endangers staff safety Patient's Reaction to the Intervention: Calm, Hostile, Nervous Patient's Medical & Behavioral Condition: Awake, Anxious, Agitated Need to Continue or Terminate Restraint or Seclusion: Continue Face to Face Eval of Restraint Date: 04/18/19 Face to Face Eval of Restraint Time: 15:45 <Morro Patel - Last Filed: 04/18/19 16:52> Medical Decision Making - Lab Data Result diagrams: 04/18/19 14:45 04/18/19 14:45 <Morro Patel - Last Filed: 04/18/19 16:52> - Lab Data Result diagrams: 04/18/19 14:45 04/18/19 16:44 <Bonny Tran - Last Filed: 04/23/19 02:22> - Medical Decision Making The patient was signed out to me from Dr. Patel. She did have an anion gap metabolic acidosis. Laboratory studies were repeated which demonstrated an anion gap of 10. CO2 is improved to 20. Lactic acid 2.5. I did provide the patient with a liter bolus of normal saline. I felt she was appropriate for hospital admission after this. Patient was stable for transfer to the floor (Bonny Tran) - Lab Data Lab Results 04/18/19 04/18/19 04/18/19 Range/Units 14:45 14:45 16:44 WBC 11.0 H (3.8-10.6) k/uL RBC 4.94 (3.80-5.40) m/uL Hgb 13.9 (11.4-16.0) gm/dL Hct 42.1 (34.0-46.0) % MCV 85.2 (80.0-100.0) fL MCH 28.2 (25.0-35.0) pg MCHC 33.1 (31.0-37.0) g/dL RDW 13.2 (11.5-15.5) % Plt Count 367 (150-450) k/uL Neutrophils % 61 % Lymphocytes % 30 % Monocytes % 5 % Eosinophils % 1 % Basophils % 1 % Neutrophils # 6.7 (1.3-7.7) k/uL Lymphocytes # 3.3 (1.0-4.8) k/uL Monocytes # 0.6 (0-1.0) k/uL Eosinophils # 0.2 (0-0.7) k/uL Basophils # 0.1 (0-0.2) k/uL Sodium 141 (137-145) mmol/L Potassium 4.2 (3.5-5.1) mmol/L Chloride 109 H (98-107) mmol/L Carbon Dioxide 13 L (22-30) mmol/L Anion Gap 19 mmol/L BUN 8 (7-17) mg/dL Creatinine 0.93 (0.52-1.04) mg/dL Est GFR (CKD-EPI)AfAm >90 (>60 ml/min/1.73 sqM) Est GFR (CKD-EPI)NonAf 85 (>60 ml/min/1.73 sqM) Glucose 126 H (74-99) mg/dL Lactic Ac Sepsis Rflx Plasma Lactic Acid Sedrick 2.5 H* (0.7-2.0) mmol/L Calcium 9.6 (8.4-10.2) mg/dL Urine HCG, Qual (Not Detectd) Urine Opiates Screen (NotDetected) Ur Oxycodone Screen (NotDetected) Urine Methadone Screen (NotDetected) Ur Propoxyphene Screen (NotDetected) Ur Barbiturates Screen (NotDetected) U Tricyclic Antidepress (NotDetected) Ur Phencyclidine Scrn (NotDetected) Ur Amphetamines Screen (NotDetected) U Methamphetamines Scrn (NotDetected) U Benzodiazepines Scrn (NotDetected) Urine Cocaine Screen (NotDetected) U Marijuana (THC) Screen (NotDetected) 04/18/19 04/18/19 04/18/19 Range/Units 16:44 17:13 18:17 WBC (3.8-10.6) k/uL RBC (3.80-5.40) m/uL Hgb (11.4-16.0) gm/dL Hct (34.0-46.0) % MCV (80.0-100.0) fL MCH (25.0-35.0) pg MCHC (31.0-37.0) g/dL RDW (11.5-15.5) % Plt Count (150-450) k/uL Neutrophils % % Lymphocytes % % Monocytes % % Eosinophils % % Basophils % % Neutrophils # (1.3-7.7) k/uL Lymphocytes # (1.0-4.8) k/uL Monocytes # (0-1.0) k/uL Eosinophils # (0-0.7) k/uL Basophils # (0-0.2) k/uL Sodium 139 (137-145) mmol/L Potassium 3.8 (3.5-5.1) mmol/L Chloride 109 H (98-107) mmol/L Carbon Dioxide 20 L (22-30) mmol/L Anion Gap 10 mmol/L BUN 9 (7-17) mg/dL Creatinine 0.81 (0.52-1.04) mg/dL Est GFR (CKD-EPI)AfAm >90 (>60 ml/min/1.73 sqM) Est GFR (CKD-EPI)NonAf >90 (>60 ml/min/1.73 sqM) Glucose 81 (74-99) mg/dL Lactic Ac Sepsis Rflx Y Plasma Lactic Acid Sedrick (0.7-2.0) mmol/L Calcium 9.3 (8.4-10.2) mg/dL Urine HCG, Qual (Not Detectd) Urine Opiates Screen Not Detected (NotDetected) Ur Oxycodone Screen Not Detected (NotDetected) Urine Methadone Screen Not Detected (NotDetected) Ur Propoxyphene Screen Not Detected (NotDetected) Ur Barbiturates Screen Not Detected (NotDetected) U Tricyclic Antidepress Not Detected (NotDetected) Ur Phencyclidine Scrn Not Detected (NotDetected) Ur Amphetamines Screen Not Detected (NotDetected) U Methamphetamines Scrn Not Detected (NotDetected) U Benzodiazepines Scrn Detected H (NotDetected) Urine Cocaine Screen Not Detected (NotDetected) U Marijuana (THC) Screen Not Detected (NotDetected) 04/18/19 Range/Units 18:22 WBC (3.8-10.6) k/uL RBC (3.80-5.40) m/uL Hgb (11.4-16.0) gm/dL Hct (34.0-46.0) % MCV (80.0-100.0) fL MCH (25.0-35.0) pg MCHC (31.0-37.0) g/dL RDW (11.5-15.5) % Plt Count (150-450) k/uL Neutrophils % % Lymphocytes % % Monocytes % % Eosinophils % % Basophils % % Neutrophils # (1.3-7.7) k/uL Lymphocytes # (1.0-4.8) k/uL Monocytes # (0-1.0) k/uL Eosinophils # (0-0.7) k/uL Basophils # (0-0.2) k/uL Sodium (137-145) mmol/L Potassium (3.5-5.1) mmol/L Chloride (98-107) mmol/L Carbon Dioxide (22-30) mmol/L Anion Gap mmol/L BUN (7-17) mg/dL Creatinine (0.52-1.04) mg/dL Est GFR (CKD-EPI)AfAm (>60 ml/min/1.73 sqM) Est GFR (CKD-EPI)NonAf (>60 ml/min/1.73 sqM) Glucose (74-99) mg/dL Lactic Ac Sepsis Rflx Plasma Lactic Acid Sedrick (0.7-2.0) mmol/L Calcium (8.4-10.2) mg/dL Urine HCG, Qual Not Detected (Not Detectd) Urine Opiates Screen (NotDetected) Ur Oxycodone Screen (NotDetected) Urine Methadone Screen (NotDetected) Ur Propoxyphene Screen (NotDetected) Ur Barbiturates Screen (NotDetected) U Tricyclic Antidepress (NotDetected) Ur Phencyclidine Scrn (NotDetected) Ur Amphetamines Screen (NotDetected) U Methamphetamines Scrn (NotDetected) U Benzodiazepines Scrn (NotDetected) Urine Cocaine Screen (NotDetected) U Marijuana (THC) Screen (NotDetected) Disposition <Morro Patel - Last Filed: 04/18/19 16:52> Is patient prescribed a controlled substance at d/c from ED?: No Decision to Admit Reason: Admit from EC Decision Date: 04/18/19 Decision Time: 18:00 <Bonny Tran - Last Filed: 04/23/19 02:22> Clinical Impression: Paranoia, Schizoaffective disorder, bipolar type Disposition: ADMITTED IP TO THIS [facility] Condition: Serious
[2019-04-18 14:59] LABS: Basophils # (A) 0.1 k/uL (0-0.2); Basophils % (A) 1 %; Eosinophils # (A) 0.2 k/uL (0-0.7); Eosinophils % (A) 1 %; HCT 42.1 % (34.0-46.0); HGB 13.9 gm/dL (11.4-16.0); Lymphocytes # (A) 3.3 k/uL (1.0-4.8); Lymphocytes % (A) 30 %; MCH 28.2 pg (25.0-35.0); MCHC 33.1 g/dL (31.0-37.0); MCV 85.2 fL (80.0-100.0); Mean Platelet Volume 9.7; Monocytes # (A) 0.6 k/uL (0-1.0); Monocytes % (A) 5 %; Neutrophils # (A) 6.7 k/uL (1.3-7.7); Neutrophils % (A) 61 %; Platelet Count 367 k/uL (150-450); RBC 4.94 m/uL (3.80-5.40); RDW 13.2 % (11.5-15.5)
[2019-04-18 15:14] LABS: African American GFR (CKD) >90 (>60 ml/min/1.73 sqM); Anion Gap 19 mmol/L; Blood Urea Nitrogen 8 mg/dL (7-17); Calcium 9.6 mg/dL (8.4-10.2); Carbon Dioxide 13 mmol/L (22-30); Chloride 109 mmol/L (98-107); Glucose 126 mg/dL (74-99); Non-African American GFR(CKD) 85 (>60 ml/min/1.73 sqM); Potassium 4.2 mmol/L (3.5-5.1); Sodium 141 mmol/L (137-145)
[2019-04-18 17:04] LABS: African American GFR (CKD) >90 (>60 ml/min/1.73 sqM); Anion Gap 10 mmol/L; Blood Urea Nitrogen 9 mg/dL (7-17); Calcium 9.3 mg/dL (8.4-10.2); Carbon Dioxide 20 mmol/L (22-30); Chloride 109 mmol/L (98-107); Glucose 81 mg/dL (74-99); Non-African American GFR(CKD) >90 (>60 ml/min/1.73 sqM); Potassium 3.8 mmol/L (3.5-5.1); Sodium 139 mmol/L (137-145)
[2019-04-18] MEDS ORDERED: SODIUM CHLORIDE 0.9% 1,000 ML IV ONE (17:39)
[2019-04-18 18:56] LABS: Amphetamine Screen,Urine Not Detected (NotDetected); Benzodiazepines Screen,Urine Detected (NotDetected); Cocaine Screen,Urine Not Detected (NotDetected); Opiate Screen,Urine Not Detected (NotDetected); Phencyclidine Screen,Urine Not Detected (NotDetected); Urn Cannabinoid Scrn Not Detected (NotDetected)
[2019-04-18 18:57] LABS: Barbiturate Screen,Urine Not Detected (NotDetected); Methadone Screen, Urine Not Detected (NotDetected); Oxycodone Screen, Urine Not Detected (NotDetected); Tricyclic Antidepressant,Urine Not Detected (NotDetected)
[2019-04-18] MEDS ORDERED: ZIPRASIDONE 20 MG VIAL IM PRN (19:40)
[2019-04-18] MEDS ORDERED: MAG HYDROX/AL HYDROX/SIMETH 30 ML CUP PO PRN (19:40)
[2019-04-18] MEDS ORDERED: ACETAMINOPHEN TAB 325 MG TAB PO PRN (19:40)
[2019-04-18] MEDS ORDERED: MAGNESIUM HYDROXIDE 2,400 MG/10 ML CUP PO PRN (19:40)
[2019-04-18] MEDS ORDERED: traZODone HCL 50 MG TAB PO PRN (19:43)
[2019-04-18] MEDS ORDERED: hydrOXYzine HCL 50 MG/ML 1 ML VIAL IM PRN (19:44)
--- NOTE | 2019-04-19 01:51 | P.PN ---
Progress Note - Text Progress Note Date: 04/18/19 patient is medicated and heavily sedated, she was aggressive and threatening while in the ED, had to be medicated and placed into restraints please notify sound physicians when patient more appropriate for evaluation
[2019-04-19 02:17] LABS: Hemoglobin A1C 4.8 % (4.0-6.0)
[2019-04-19] MEDS: NICOTINE 14MG/24HR PATCH TRANSDERM SCH (09:35)
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
[2019-04-20] MEDS: NICOTINE 14MG/24HR PATCH TRANSDERM SCH ×2 (08:19→08:30)
[2019-04-20] MEDS ORDERED: flUPHENAZine 2.5 MG/ML (MDV) 10 ML VIAL IM PRN (10:25)
--- NOTE | 2019-04-20 13:21 | P.HPMEDMHU ---
History of Present Illness H&P Date: 04/20/19 Chief Complaint: Consulted for MHU HPI The patient is a 28-year-old female with a past medical history of PCOS and chronic migraines currently in remission that is currently admitted to the mental health floor. The patient denies any suicidal or homicidal ideatio ns, she denies any auditory or visual hallucinations, she reports being taken off of her antipsychotic medications By her psychiatrist at [facility]. Patient denies any chest pain or shortness of breath, she does report a history of smoking, she denies any complaints at this time. A UDS was positive for benzodiazepines. The patient is hemodynamically stable Review of Systems Pertinent positive per HPI all other review is otherwise negative Past Medical History Past Medical History: No Reported History Additional Past Medical History / Comment(s): PCOS, migraines heart murmur History of Any Multi-Drug Resistant Organisms: None Reported Past Surgical History: No Surgical Hx Reported Additional Past Surgical History / Comment(s): Hx of heart murmur Past Anesthesia/Blood Transfusion Reactions: No Reported Reaction Additional Past Anesthesia/Blood Transfusion Reaction / Comment(s): clausterphobia Past Psychological History: Anxiety, Bipolar, Depression, Panic Disorder, Schizoaffective Disorder Smoking Status: Current every day smoker Past Alcohol Use History: None Reported Additional Past Alcohol Use History / Comment(s): pt stated she smokes 1 ppd and chews 1 can per day. Past Drug Use History: None Reported Additional Drug Use History / Comment(s): pt stated age 18 (after her dad ) she did ecstacy, cocaine, smorted muscle relaxants and marijuana,. - Past Family History Father Additional Family Medical History / Comment(s): Mother History Unknown: Yes Grandmother Family Medical History: Diabetes Mellitus Medications and Allergies Home Medications Medication Instructions Recorded Confirmed Type Baclofen [Lioresal] 10 mg PO HS PRN 04/18/19 04/18/19 History Cholecalciferol (Vitamin D3) 125 mcg PO DAILY 04/18/19 04/18/19 History [Vitamin D3] LORazepam [Ativan] 0.5 mg PO HS PRN 04/18/19 04/18/19 History Medroxyprogesterone Acetate 150 mg IM Q84D 04/18/19 04/18/19 History [Depo-Provera] Nicotine Polacrilex [Nicorette] 2 mg BUCCAL Q2H PRN 04/18/19 04/18/19 History Spironolactone [Aldactone] 50 mg PO DAILY 04/18/19 04/18/19 History Allergies Allergy/AdvReac Type Severity Reaction Status Date / Time lamotrigine [From Lamictal] Allergy Rash/Hives Verified 04/18/19 20:15 Physical Exam Constitutional: No acute distress, conversant, pleasant Eyes: Anicteric sclerae, moist conjunctiva, no lid-lag, PERRLA ENMT: NC/AT,Oropharynx clear, no erythema, exudates Neck:Supple, FROM, no masses, or JVD, No carotid bruits; No thyromegaly Lungs: Clear to auscultation, Clear to percussion, Normal respiratory effort, no accessory muscle use Cardiovascular: Heart regular in rate and rhythm, No murmurs, gallops, or rubs no peripheral edema Abdominal: Soft Nontender, nom distended, no guarding, no rebound or rigidity, Normoactive bowel sounds No hepatomegaly, No splenomegaly, No palpable mass No abdominal wall hernia noted Skin: Normal temperature, tone, texture, turgor, No induration No subcutaneous nodules, No rash, lesions, No ulcers Extremities:No digital cyanosis No clubbing, Pedal pulses intact and symmetrical Radial pulses intact and symmetrical Normal gait and station, No calf tenderness Psychiatric: Flat affect, who awake and oriented 3 Neuro: Muscles Strength 5/5 in all 4 extremities, Sensation to light touch abner ssly present throughout, Cranial nerves II-XII grossly intact. No focal sensory deficits Cranial Nerve Examination - Cranial Nerves Cranial Nerve II- Optic: Intact Cranial Nerve III- Oculomotor: Intact Cranial Nerve IV- Trochlear: Intact Cranial Nerve V- Trigeminal: Intact Cranial Nerve - Abducens: Intact Cranial Nerve VII- Facial: Intact Cranial Nerve VIII- Auditory: Intact Cranial Nerve IX- Glossopharyngeal: Intact Cranial Nerve X- Vagus: Intact Cranial Nerve XI- Accessory: Intact Cranial Nerve XII- Hypoglossal: Intact Results CBC & Chem 7: 04/18/19 14:45 04/18/19 16:44 Thrombosis Risk Factor Assmnt - Choose All That Apply Any of the Below Risk Factors Present?: No Other Risk Factors: No Thrombosis Risk Factor Assessment Level: Very Low Risk Assessment and Plan Assessment: Migraine headaches PCOS Psychotic disorder Smoker Plan: The patient is admitted to acute inpatient psychiatry team will defer to them regarding all ongoing psychotropic medications according she'll cognitive behavioral therapy. The patient has no complaints at this time is hemodynamically stable. We'll plan to sign off on her case. For further questions please not hesitate to contact the [facility] inpatient team
--- NOTE | 2019-04-20 13:39 | P.PN ---
Subjective Progress Note Date: 04/20/19 Principal diagnosis: Schizoaffective disorder most recent episode manic I reviewed the medical record, interviewed the patient and discuss her treatment and treatment plan during team meeting. We had a difficult interview. She was initially pleasant but became angry when I recommended an antipsychotic medication. She does not believe that she has a mental illness and does not require treatment with a psychotropic medication. She told me she would not take the medication without a photovoltaic solar cell designer's order. I reminded her that she is on a treatment order. She attempted to argue that treatment does not include medication. Objective - Vital Signs Vital signs: Vital Signs Temp 97.7 F 04/18/19 20:00 Pulse 96 04/18/19 20:00 Resp 18 04/18/19 20:00 BP 127/74 04/18/19 20:00 Pulse Ox 100 04/18/19 20:00 - Exam She presented as a casually groomed young moderately obese female with long hirsutism. She made eye contact and attended the interview. She was irritable but directable. She showed no abnormality of psychomotor activity. Speech was spontaneous and consistent with her mood. She did not express suicidal ideation or homicidal ideation. She was angry regarding our treatment recommendations. She denied hallucinations and did not appear to be responding to internal stimuli. Her thinking was concrete but coherent. - Labs CBC & Chem 7: 04/18/19 14:45 04/18/19 16:44 Assessment and Plan Assessment: She is chronically mentally ill and presented involuntarily with a decompensation in her clinical status after discontinuing treatment with olanzapine. She will need treatment with a long-acting injectable antipsychotic. She has much less agitated, impulsive and aggressive after receiving intramuscular Geodon. We selected Prolixin because available as as an oral preparation, a short acting intramuscular preparation and has a long acting injectable. Plan: Continue inpatient treatment due to the severity of her disorganization. Begin Prolixin 2.5 mg by mouth and titrated according to clinical response and tolerance. Prolixin 2.5 mg IM if refused the oral medication. Continue Geodon and Ativan when necessary for agitation or aggression.
[2019-04-21] MEDS: NICOTINE 14MG/24HR PATCH TRANSDERM SCH (09:44)
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
[2019-04-22] MEDS: NICOTINE 14MG/24HR PATCH TRANSDERM SCH (10:00)
--- NOTE | 2019-04-22 12:01 | P.PN ---
Progress Note - Text Progress Note Date: 04/22/19 Interval history: Patient was seen wandering the hallways and was directable and agreeable to s peak with marine underwriter. Patient asked marine underwriter several times about wanting to "support the " and states that she would like to wear her hat on the unit. Patient was logical however was somewhat talkative this morning. She claims that she is going to groups and states that her mood is okay. She was superficially cooperative and continues to demonstrate poor insight and judgment. Patient states that she made an agreement with her [facility] doctor that she should not be on medications. Patient also states that she has been drinking more water recently and feels thirsty. She states that she slept well throughout the night. At this time patient denies any suicidal or homicidal ideations intent or plan. Denies any Auditory or visual hallucinations. Patient denies any side effects from the medications and has been compliant with meds. Mental status exam: General Appearance: Patient appears to be stated age is overweight, alert, superficially cooperative. Wearing street clothing. Behavior: No agitated behavior. Patient is calm and directable Speech: Patient's speech is fluent and nonpressured. Mood/Affect: Mood is improving mildly, affect is congruent and constricted. Suicidality/Homicidality: Patient denies having any suicidal or homicidal ideation intent or plan. Perceptions: Patient denies any auditory or visual hallucinations. Though content/process: There is no evidence of any delusional thought content and thought process is linear and goal-directed. Superficially cooperative. Memory and concentration: AOX3, grossly intact for the purposes of this session Judgment and insight: Poor Assessment/Plan: Continue with current diagnosis. Patient continues to meet criteria for inpatient psychiatric admission for symptom stabilization and safety.Patient will be maintained on current psychotropic medication regimen. Will order basic metabolic panel for tomorrow to check sodium level. If patient refuses Prolixin by mouth then she is to receive Prolixin IM as per court order. Monitor for medication compliance and for any psychotropic medication side effects. Will continue to monitor ongoing response to treatment. Encouraged participation in milieu.
[2019-04-23 07:42] LABS: African American GFR (CKD) >90 (>60 ml/min/1.73 sqM); Anion Gap 10 mmol/L; Blood Urea Nitrogen 13 mg/dL (7-17); Calcium 9.3 mg/dL (8.4-10.2); Carbon Dioxide 19 mmol/L (22-30); Chloride 110 mmol/L (98-107); Glucose 91 mg/dL (74-99); Non-African American GFR(CKD) >90 (>60 ml/min/1.73 sqM); Potassium 4.2 mmol/L (3.5-5.1); Sodium 139 mmol/L (137-145)
[2019-04-23] MEDS: NICOTINE 14MG/24HR PATCH TRANSDERM SCH (10:16)
--- NOTE | 2019-04-23 13:19 | P.PN ---
Progress Note - Text Progress Note Date: 04/23/19 Interval history: Patient was seen wandering the hallways and was directable and agreeable to s peak with creative services writer. Patient was more appropriately with creative services writer today and spoke in a soft calm voice. She explained about her and needing to come over from [place] to see her however she states that when she goes back she'll need to self quarantine for 2 weeks due to candidate is lost. She states that she is more talkative and speaking with other patients on the unit. She states that she has appointments coming up with her INPATIENT PHARMACIST doctor. She claims that she is going to groups and states that her mood is okay. She states that she slept well throughout the night and denies any overt manic complaints. At this time patient denies any suicidal or homicidal ideations intent or plan. Denies any Auditory or visual hallucinations. Patient denies any side effects from the medications and has been compliant with meds. Mental status exam: General Appearance: Patient appears to be stated age is overweight, alert, superficially cooperative. Wearing street clothing. Behavior: No agitated behavior. Patient is calm and directable Speech: Patient's speech is fluent and nonpressured. Mood/Affect: Mood is improving mildly, affect is congruent and constricted. Suicidality/Homicidality: Patient denies having any suicidal or homicidal ideation intent or plan. Perceptions: Patient denies any auditory or visual hallucinations. Though content/process: There is no evidence of any delusional thought content and thought process is linear and goal-directed. Superficially cooperative. Memory and concentration: AOX3, grossly intact for the purposes of this session Judgment and insight: Poor, mildly improving Assessment/Plan: Continue with current diagnosis. Patient continues to meet criteria for inpatient psychiatric admission for symptom stabilization and safety.Patient will be maintained on current psychotropic medication regimen. Sodium level this morning appears to be within normal limits . If patient refuses Prolixin by mouth then she is to receive Prolixin IM as per court order. Monitor for medication compliance and for any psychotropic medication side effects. Will continue to monitor ongoing response to treatment. Encouraged participation in milieu.
[2019-04-24] MEDS: NICOTINE 14MG/24HR PATCH TRANSDERM SCH (09:35)
[2019-04-24] MEDS ORDERED: fluPHENAZine DECANOATE 25 MG/ML 5ML MDV IM ONE (11:30)
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
[2019-04-25] MEDS ORDERED: ONDANSETRON 4 MG TAB PO STA (00:43)
[2019-04-25] MEDS: NICOTINE 14MG/24HR PATCH TRANSDERM SCH (09:46)
--- NOTE | 2019-04-25 15:13 | P.PN ---
Subjective Progress Note Date: 04/25/19 Principal diagnosis: Schizoaffective disorder most recent episode manic I reviewed the medical record, interviewed the patient and discuss her treatment and treatment plan during team meeting. Nursing reported that she had vomited yesterday. Nursing staffin the social welfare research worker received a telephone calls from her andand complained that Katia has been nauseous since she was admitted to the hospital. I spoke with Katia and she admitted to feeling nauseous and vomiting yesterday. In response to questions about feeling nauseous since admission she replied "a little better" but minimizes severity of nausea. She attributed the vomiting yesterday to her menstrual cycle. Today, she denied feeling nauseous or having vomited. She is anxious about discharge. Objective - Vital Signs Vital signs: Vital Signs Temp 97.6 F 04/25/19 00:02 Pulse 62 04/25/19 00:02 Resp 16 04/25/19 00:02 BP 135/79 04/25/19 00:02 Pulse Ox 99 04/25/19 00:02 - Exam She presented as a casually groomed young moderately obese female with hirsutism. She made eye contact and attended the interview. She was pleasant and cooperative. She showed no abnormality of psychomotor activity. Speech was spontaneous and consistent with her mood. Her affect was blunted but bright. She did not express suicidal ideation or homicidal ideation. She denied hallucinations and did not appear to be responding to internal stimuli. Her thinking was concrete but coherent. - Labs CBC & Chem 7: 04/18/19 14:45 04/23/19 07:08 Assessment and Plan Assessment: She is much improved from admission. I'm uncertain whether the nausea is related to Prolixin. She rereceived her first dose of Prolixin Decanoate yesterday. Plan: continue Prolixin 2.5 mg orally until her next Prolixin Decanoate injection in 2 weeks. Encourage continued participation in therapeutic groups and activities. Plan for discharge on 03/28/2019. pattern worker to coordinate discharge and aftercare services.
[2019-04-26 06:41] VITALS: RESP 15; TEMP 97.9
[2019-04-26 06:56] VITALS: BP 105/56; PULSE 56
[2019-04-26] MEDS: NICOTINE 14MG/24HR PATCH TRANSDERM SCH (10:10)
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
[2019-04-26] MEDS ORDERED: fluPHENAZine DECANOATE 25 MG/ML 5ML MDV IM SCH (12:30)
[2019-05-03] MEDS ORDERED: fluPHENAZine DECANOATE 25 MG/ML 5ML MDV IM SCH (09:00)
[2019-05-08] MEDS ORDERED: fluPHENAZine DECANOATE 25 MG/ML 5ML MDV IM SCH (09:00)
== END 2019-04-26 14:53 | disposition home or self-care (01) | DRG 885 ==
LOC: EC 13:42 → 3MHU 19:20
PROVIDERS: ADMIT Psychiatry & Neurology Psychiatry; ATTEND Psychiatry & Neurology Psychiatry
DX: F25.0 Schizoaffective disorder, bipolar type (principal); E87.2 Acidosis; F41.0 Panic disorder [episodic paroxysmal anxiety]; D72.821 Monocytosis (symptomatic); F17.210 Nicotine dependence, cigarettes, uncomplicated; F17.220 Nicotine dependence, chewing tobacco, uncomplicated; Z62.810 Personal history of physical and sexual abuse in childhood; Z78.1 Physical restraint status; Z83.3 Family history of diabetes mellitus; Z91.14 Patient's other noncompliance with medication regimen; Z91.19 Patient's noncompliance with other medical treatment and regimen; E28.2 Polycystic ovarian syndrome; F40.240 Claustrophobia; Z79.899 Other long term (current) drug therapy; Z88.8 Allergy status to other drugs, medicaments and biological substances; G43.909 Migraine, unspecified, not intractable, without status migrainosus
CPT/HCPCS: 36415; 80048; 80061; 80306; 81025; 82075; 83036; 83605; 84443; 85025; 96360; 96361; 96372; 99285

== ENCOUNTER 2019-06-16 19:44 | Emergency (ER) | payer OTHER ==
[2019-06-16 19:56] VITALS: RESP 18
[2019-06-16] MEDS ORDERED: SODIUM CHLORIDE 0.9% 1,000 ML IV ONE (20:26)
[2019-06-16 21:30] LABS: Appearance,Urine Clear (Clear); Color,Urine Yellow; Protein,Urine Negative (Negative)
[2019-06-16 21:31] LABS: Bilirubin,Urine Negative (Negative); Blood,Urine Negative (Negative); Glucose,Urine (UA) Negative (Negative); Ketones,Urine Negative (Negative); Leukocyte Esterase,Urine Negative (Negative); Nitrite,Urine Negative (Negative); Urobilinogen,Urine <2.0 mg/dL (<2.0)
[2019-06-16 21:34] LABS: ALT 19 U/L (4-34); AST 32 U/L (14-36); African American GFR (CKD) >90 (>60 ml/min/1.73 sqM); Albumin 4.6 g/dL (3.5-5.0); Alkaline Phosphatase 50 U/L (38-126); Anion Gap 9 mmol/L; Blood Urea Nitrogen 8 mg/dL (7-17); Calcium 9.6 mg/dL (8.4-10.2); Carbon Dioxide 26 mmol/L (22-30); Chloride 104 mmol/L (98-107); Glucose 81 mg/dL (74-99); Non-African American GFR(CKD) >90 (>60 ml/min/1.73 sqM); Sodium 139 mmol/L (137-145); Total Bilirubin 0.9 mg/dL (0.2-1.3); Total Protein 7.8 g/dL (6.3-8.2)
[2019-06-16 21:43] LABS: Potassium 4.8 mmol/L (3.5-5.1)
[2019-06-16 21:48] LABS: Basophils # (A) 0.1 k/uL (0-0.2); Basophils % (A) 1 %; Eosinophils # (A) 0.2 k/uL (0-0.7); Eosinophils % (A) 1 %; HCT 41.6 % (34.0-46.0); HGB 13.8 gm/dL (11.4-16.0); Lymphocytes # (A) 2.4 k/uL (1.0-4.8); Lymphocytes % (A) 22 %; MCH 27.7 pg (25.0-35.0); MCHC 33.1 g/dL (31.0-37.0); MCV 83.7 fL (80.0-100.0); Mean Platelet Volume 8.5; Monocytes # (A) 0.5 k/uL (0-1.0); Monocytes % (A) 5 %; Neutrophils # (A) 7.8 k/uL (1.3-7.7); Neutrophils % (A) 70 %; Platelet Count 271 k/uL (150-450); RBC 4.96 m/uL (3.80-5.40); RDW 12.9 % (11.5-15.5); WBC 11.2 k/uL (3.8-10.6)
[2019-06-16 21:51] LABS: HCG,Quantitative Serum <2.4 mIU/mL
--- NOTE | 2019-06-16 21:52 | ED ---
General Adult HPI - General Chief complaint: Dizziness Stated complaint: COUGH Time Seen by Provider: 06/16/19 19:55 Source: patient, family, EMS Mode of arrival: ambulatory Limitations: no limitations - History of Present Illness Initial comments: 28-year-old female patient presents to the emergency department today for evaluation of dizziness and near syncope. Patient states that she has been feeling unwell for the last few days. States today she has been very dizzy and feeling like she is going to pass out. She states that she has been nauseated but has not vomited. She denies any constipation or diarrhea. States she has been chilled but denies any fevers. She denies numbness, tingling, or weakness or extremities. She denies any recent head injury. Denies any blurred or double vision. She did start a new medication called Invega yesterday, she had an injection. States that she has taken his medication in the past and never had any reaction. Patient states she does feel like she may be going to have a seizure. 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 She has seen neurology. Patient denies any recent rash, cough, shortness of breath, chest pain, abdominal pain, diarrhea, constipation, back pain, numbness, tingling, dizziness, weakness, hematuria, dysuria, urinary urgency, urinary frequency, or any other complaints. - Related Data Home Medications Medication Instructions Recorded Confirmed Baclofen [Lioresal] 10 mg PO HS PRN 04/18/19 04/18/19 Cholecalciferol (Vitamin D3) 125 mcg PO DAILY 04/18/19 04/18/19 [Vitamin D3] Nicotine Polacrilex [Nicorette] 2 mg BUCCAL Q2H PRN 04/18/19 04/18/19 Spironolactone [Aldactone] 50 mg PO DAILY 04/18/19 04/18/19 Allergies Allergy/AdvReac Type Severity Reaction Status Date / Time lamotrigine [From Lamictal] Allergy Rash/Hives Verified 06/16/19 19:56 Review of Systems ROS Statement: Those systems with pertinent positive or pertinent negative responses have been documented in the HPI. ROS Other: All systems not noted in ROS Statement are negative. Past Medical History Past Medical History: No Reported History Additional Past Medical History / Comment(s): PCOS, migraines heart murmur History of Any Multi-Drug Resistant Organisms: None Reported Past Surgical History: No Surgical Hx Reported Additional Past Surgical History / Comment(s): Hx of heart murmur Past Anesthesia/Blood Transfusion Reactions: No Reported Reaction Additional Past Anesthesia/Blood Transfusion Reaction / Comment(s): clausterphobia Past Psychological History: Anxiety, Bipolar, Depression, Panic Disorder, Schizoaffective Disorder Smoking Status: Current every day smoker Past Alcohol Use History: None Reported Past Drug Use History: None Reported - Past Family History Father Additional Family Medical History / Comment(s): Mother History Unknown: Yes Grandmother Family Medical History: Diabetes Mellitus General Exam Limitations: no limitations General appearance: alert, in no apparent distress, other (This is a well- developed, well-nourished adult female patient in no acute distress. Vital s igns upon presentation are temperature 99.0F, pulse 94, respirations 18, blood pressure 131/85, pulse ox 100% on room air.) Eye exam: Present: normal appearance, PERRL, EOMI. Absent: scleral icterus, conjunctival injection, periorbital swelling ENT exam: Present: normal exam, normal oropharynx, mucous membranes moist Respiratory exam: Present: normal lung sounds bilaterally. Absent: respiratory distress, wheezes, rales, rhonchi, stridor Cardiovascular Exam: Present: regular rate, normal rhythm, normal heart sounds. Absent: systolic murmur, diastolic murmur, rubs, gallop, clicks GI/Abdominal exam: Present: soft, normal bowel sounds. Absent: distended, tenderness, guarding, rebound, rigid Neurological exam: Present: alert, oriented X3, CN II-XII intact, other (Strength in all 4 extremities is 5/5) Psychiatric exam: Present: normal affect, normal mood Skin exam: Present: warm, dry, intact, normal color. Absent: rash Course Vital Signs 06/16/19 19:46 Temperature 99.0 F Pulse Rate 94 Respiratory 18 Rate Blood Pressure 131/85 O2 Sat by Pulse 100 Oximetry EKG Findings - EKG Comments: EKG Findings:: EKG obtained at 2224 shows normal sinus rhythm with a ventricular rate of 77, MO interval 168, QRS duration 88, QT 396, QTc 448. No evidence of ST elevation or depression. Medical Decision Making - Medical Decision Making 28-year-old male patient presented to the emergency department today for eval uation of dizziness and nausea. Physical examination is unremarkable. Lungs are clear to auscultation with good air movement. Abdomen soft and nontender. Vital signs showed no major abnormalities. Labs reviewed and are unremarkable. Coronavirus testing is negative. She is not . EKG showed normal sinus rhythm. Upon reevaluation patient states she feels much better after receiving IV fluids. She is ambulatory. She'll be discharged to follow-up with her primary care physician for recheck in 1-2 days. Return parameters were discussed in detail. She verbalizes understanding and agrees with this plan. - Lab Data Result diagrams: 06/16/19 21:40 06/16/19 20:06 Lab Results 06/16/19 06/16/19 06/16/19 Range/Units 20:06 20:06 20:06 WBC (3.8-10.6) k/uL RBC (3.80-5.40) m/uL Hgb (11.4-16.0) gm/dL Hct (34.0-46.0) % MCV (80.0-100.0) fL MCH (25.0-35.0) pg MCHC (31.0-37.0) g/dL RDW (11.5-15.5) % Plt Count (150-450) k/uL Neutrophils % % Lymphocytes % % Monocytes % % Eosinophils % % Basophils % % Neutrophils # (1.3-7.7) k/uL Lymphocytes # (1.0-4.8) k/uL Monocytes # (0-1.0) k/uL Eosinophils # (0-0.7) k/uL Basophils # (0-0.2) k/uL Sodium 139 (137-145) mmol/L Potassium 4.8 (3.5-5.1) mmol/L Chloride 104 (98-107) mmol/L Carbon Dioxide 26 (22-30) mmol/L Anion Gap 9 mmol/L BUN 8 (7-17) mg/dL Creatinine 0.64 (0.52-1.04) mg/dL Est GFR (CKD-EPI)AfAm >90 (>60 ml/min/1.73 sqM) Est GFR (CKD-EPI)NonAf >90 (>60 ml/min/1.73 sqM) Glucose 81 (74-99) mg/dL Calcium 9.6 (8.4-10.2) mg/dL Total Bilirubin 0.9 (0.2-1.3) mg/dL AST 32 (14-36) U/L ALT 19 (4-34) U/L Alkaline Phosphatase 50 (38-126) U/L Total Protein 7.8 (6.3-8.2) g/dL Albumin 4.6 (3.5-5.0) g/dL Lipase 84 (23-300) U/L HCG, Quant <2.4 mIU/mL Urine Color Yellow Urine Appearance Clear (Clear) Urine pH 7.0 (5.0-8.0) Ur Specific [place] 1.010 (1.001-1.035) Urine Protein Negative (Negative) Urine Glucose (UA) Negative (Negative) Urine Ketones Negative (Negative) Urine Blood Negative (Negative) Urine Nitrite Negative (Negative) Urine Bilirubin Negative (Negative) Urine Urobilinogen <2.0 (<2.0) mg/dL Ur Leukocyte Esterase Negative (Negative) Urine HCG, Qual (Not Detectd) Coronavirus (PCR) Not Detected (Not Detectd) 06/16/19 06/16/19 Range/Units 21:40 21:52 WBC 11.2 H (3.8-10.6) k/uL RBC 4.96 (3.80-5.40) m/uL Hgb 13.8 (11.4-16.0) gm/dL Hct 41.6 (34.0-46.0) % MCV 83.7 (80.0-100.0) fL MCH 27.7 (25.0-35.0) pg MCHC 33.1 (31.0-37.0) g/dL RDW 12.9 (11.5-15.5) % Plt Count 271 (150-450) k/uL Neutrophils % 70 % Lymphocytes % 22 % Monocytes % 5 % Eosinophils % 1 % Basophils % 1 % Neutrophils # 7.8 H (1.3-7.7) k/uL Lymphocytes # 2.4 (1.0-4.8) k/uL Monocytes # 0.5 (0-1.0) k/uL Eosinophils # 0.2 (0-0.7) k/uL Basophils # 0.1 (0-0.2) k/uL Sodium (137-145) mmol/L Potassium (3.5-5.1) mmol/L Chloride (98-107) mmol/L Carbon Dioxide (22-30) mmol/L Anion Gap mmol/L BUN (7-17) mg/dL Creatinine (0.52-1.04) mg/dL Est GFR (CKD-EPI)AfAm (>60 ml/min/1.73 sqM) Est GFR (CKD-EPI)NonAf (>60 ml/min/1.73 sqM) Glucose (74-99) mg/dL Calcium (8.4-10.2) mg/dL Total Bilirubin (0.2-1.3) mg/dL AST (14-36) U/L ALT (4-34) U/L Alkaline Phosphatase (38-126) U/L Total Protein (6.3-8.2) g/dL Albumin (3.5-5.0) g/dL Lipase (23-300) U/L HCG, Quant mIU/mL Urine Color Urine Appearance (Clear) Urine pH (5.0-8.0) Ur Specific [place] (1.001-1.035) Urine Protein (Negative) Urine Glucose (UA) (Negative) Urine Ketones (Negative) Urine Blood (Negative) Urine Nitrite (Negative) Urine Bilirubin (Negative) Urine Urobilinogen (<2.0) mg/dL Ur Leukocyte Esterase (Negative) Urine HCG, Qual Not Detected (Not Detectd) Coronavirus (PCR) (Not Detectd) Disposition Clinical Impression: Dizziness, Nausea Disposition: HOME SELF-CARE Condition: Good Instructions (If sedation given, give patient instructions): Acute Nausea and Vomiting (ED), Dizziness (ED) Additional Instructions: Increase fluids. Rest. Follow-up through primary care physician for recheck in 1-2 days. Follow up with your neurologist. Return to the emergency department for any new, worsening, or concerning symptoms. Is patient prescribed a controlled substance at d/c from ED?: No Referrals: [facility] [Primary Care Provider] - 1-2 days Time of Disposition: 22:37
[2019-06-16 23:23] VITALS: BP 142/73; PULSE 82; TEMP 98.3
== END 2019-06-16 23:22 | disposition home or self-care (01) ==
LOC: EC 19:44
DX: R42 Dizziness and giddiness (principal); R11.0 Nausea; R55 Syncope and collapse; F17.200 Nicotine dependence, unspecified, uncomplicated; Z79.899 Other long term (current) drug therapy; Z88.8 Allergy status to other drugs, medicaments and biological substances; Z86.79 Personal history of other diseases of the circulatory system; Z20.818 Contact with and (suspected) exposure to other bacterial communicable diseases
CPT/HCPCS: 36415; 80053; 81003; 81025; 83690; 84702; 85025; 87635; 93005; 96360; 99284

== ENCOUNTER 2019-06-21 18:22 | Emergency (ER) | payer OTHER ==
[2019-06-21 18:31] VITALS: BP 124/86; PULSE 94; RESP 18; TEMP 97.7
--- NOTE | 2019-06-21 19:19 | ED ---
General Adult HPI - General Chief complaint: Neuro Symptoms/Deficit Stated complaint: Loss of vision, vomiting, Time Seen by Provider: 06/21/19 18:33 Source: patient, RN notes reviewed Mode of arrival: ambulatory Limitations: no limitations - History of Present Illness Initial comments: This a 28-year-old female presents emergency Department with guardian chief complaint of medication reaction. Patient's been having symptoms since February which have worsened after starting Prolixin and and regular. Patient states that her eyes just moved around in directions that she feels that she cannot control though when she wants to look in her that direction she can. She states that her eyes just seem to look upward. Patient states that she's been having these symptoms are not new symptoms. 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 She is scheduled to see [facility]A REPRESENTATIVE because she has PCOS. Patient has a suicidal or homicidal ideation she has a long-standing history of psychiatric disorders. She states she has constant nausea intermittent vomiting. She states she feels restless. She states none of these symptoms are new with the last several weeks. - Related Data Home Medications Medication Instructions Recorded Confirmed Cholecalciferol (Vitamin D3) 125 mcg PO DAILY 04/18/19 06/21/19 [Vitamin D3] Nicotine Polacrilex [Nicorette] 2 mg BUCCAL Q2H PRN 04/18/19 06/21/19 Spironolactone [Aldactone] 50 mg PO DAILY 04/18/19 06/21/19 LORazepam [Ativan] 1 mg PO TID PRN 06/21/19 06/21/19 Paliperidone IM [Invega Sustenna] 234 mg IM ONCE 06/21/19 06/21/19 traZODone HCL 50 mg PO HS PRN 06/21/19 06/21/19 Previous Rx's Medication Instructions Recorded Ondansetron Odt [Zofran Odt] 4 mg PO Q8HR PRN #10 tab 06/21/19 Allergies Allergy/AdvReac Type Severity Reaction Status Date / Time lamotrigine [From Lamictal] Allergy Rash/Hives Verified 06/21/19 19:23 metformin Allergy Rash/Hives Verified 06/21/19 19:23 Review of Systems ROS Statement: Those systems with pertinent positive or pertinent negative responses have been documented in the HPI. ROS Other: All systems not noted in ROS Statement are negative. Past Medical History Past Medical History: No Reported History Additional Past Medical History / Comment(s): PCOS, migraines heart murmur History of Any Multi-Drug Resistant Organisms: None Reported Past Surgical History: No Surgical Hx Reported Additional Past Surgical History / Comment(s): Hx of heart murmur Past Anesthesia/Blood Transfusion Reactions: No Reported Reaction Additional Past Anesthesia/Blood Transfusion Reaction / Comment(s): clausterphobia Past Psychological History: Anxiety, Bipolar, Depression, Panic Disorder, Schizoaffective Disorder Smoking Status: Current every day smoker Past Alcohol Use History: None Reported Past Drug Use History: None Reported - Past Family History Father Additional Family Medical History / Comment(s): Mother History Unknown: Yes Grandmother Family Medical History: Diabetes Mellitus General Exam Limitations: no limitations General appearance: alert, in no apparent distress Head exam: Present: atraumatic, normocephalic, normal inspection Eye exam: Present: normal appearance, PERRL, EOMI. Absent: scleral icterus, conjunctival injection, periorbital swelling ENT exam: Present: normal exam, normal oropharynx, mucous membranes moist, TM's normal bilaterally Neck exam: Present: normal inspection, full ROM. Absent: tenderness, meningismus, lymphadenopathy Respiratory exam: Present: normal lung sounds bilaterally. Absent: respiratory distress, wheezes, rales, rhonchi, stridor Cardiovascular Exam: Present: regular rate, normal rhythm, normal heart sounds. Absent: systolic murmur, diastolic murmur, rubs, gallop, clicks Extremities exam: Present: normal inspection, full ROM, normal capillary refill. Absent: tenderness, pedal edema, joint swelling, calf tenderness Neurological exam: Present: alert, oriented X3, CN II-XII intact, normal gait, reflexes normal, other (Finger to nose intact bilaterally without overshooting). Absent: motor sensory deficit Skin exam: Present: warm, dry, intact, normal color. Absent: rash Course Vital Signs 06/21/19 18:26 Temperature 97.7 F Pulse Rate 94 Respiratory 18 Rate Blood Pressure 124/86 O2 Sat by Pulse 100 Oximetry Medical Decision Making - Medical Decision Making CT was reviewed and is negative for acute findings. I do feel this is related to psychiatric Center, medication reaction. Patient advised to talk to psychiatrist to discontinue Prolixin as a 1 symptoms started. Patient we discharged in stable condition. She will be given antiemetics for ongoing nausea. Return parameters were discussed. She's not suicidal or homicidal. Disposition Clinical Impression: Medication reaction Disposition: HOME SELF-CARE Condition: Stable Additional Instructions: Please discuss discontinue Prolixin with your psychiatrist. Please return to the Emergency Department if symptoms worsen or any other concerns. Prescriptions: Ondansetron Odt [Zofran Odt] 4 mg PO Q8HR PRN #10 tab PRN Reason: Nausea Is patient prescribed a controlled substance at d/c from ED?: No Referrals: [facility] [Primary Care Provider] - 1-2 days Time of Disposition: 20:24
--- NOTE | 2019-06-21 19:43 | CT ---
EXAMINATION TYPE: CT brain wo con DATE OF EXAM: 06/21/2019 COMPARISON: None. HISTORY: SEIZURE ACTIVITY headache. CT DLP: 1118.4 mGycm. Automated Exposure Control for Dose Reduction was Utilized. TECHNIQUE: CT scan of the head is performed without contrast. FINDINGS: There is no acute intracranial hemorrhage, mass effect, or midline shift identified. The ventricles and sulci are within normal limits in size. Navas-white matter differentiation fairly well preserved. The globes are intact and the visualized sinuses are clear. IMPRESSION: No acute intracranial hemorrhage or midline shift is seen.
[2019-06-21] MEDS ORDERED: ONDANSETRON 4 MG ODT STARTER PACK 2 TAB BTL PO STA (20:22)
== END 2019-06-21 20:35 | disposition home or self-care (01) ==
LOC: EC 18:22
DX: R11.2 Nausea with vomiting, unspecified (principal); T43.3X5A Adverse effect of phenothiazine antipsychotics and neuroleptics, initial encounter; F41.8 Other specified anxiety disorders; F17.200 Nicotine dependence, unspecified, uncomplicated; Z79.899 Other long term (current) drug therapy; Z88.8 Allergy status to other drugs, medicaments and biological substances
CPT/HCPCS: 99284; 70450; S0119

== ENCOUNTER 2019-06-22 15:10 | Emergency (ER) | payer OTHER ==
[2019-06-22 15:17] VITALS: BP 116/77; PULSE 95; RESP 18; TEMP 98.5
[2019-06-22] MEDS ORDERED: SODIUM CHLORIDE 0.9% 1,000 ML IV STA (16:26)
[2019-06-22 16:57] LABS: ALT 22 U/L (4-34); AST 24 U/L (14-36); African American GFR (CKD) >90 (>60 ml/min/1.73 sqM); Albumin 4.6 g/dL (3.5-5.0); Alkaline Phosphatase 63 U/L (38-126); Anion Gap 8 mmol/L; Blood Urea Nitrogen 9 mg/dL (7-17); Calcium 9.1 mg/dL (8.4-10.2); Carbon Dioxide 27 mmol/L (22-30); Chloride 104 mmol/L (98-107); Glucose 85 mg/dL (74-99); Non-African American GFR(CKD) >90 (>60 ml/min/1.73 sqM); Potassium 3.9 mmol/L (3.5-5.1); Sodium 139 mmol/L (137-145); Total Bilirubin 0.8 mg/dL (0.2-1.3); Total Protein 7.5 g/dL (6.3-8.2)
[2019-06-22 17:08] LABS: Basophils # (A) 0.1 k/uL (0-0.2); Basophils % (A) 1 %; Eosinophils # (A) 0.2 k/uL (0-0.7); Eosinophils % (A) 2 %; HCT 41.4 % (34.0-46.0); Lymphocytes # (A) 2.4 k/uL (1.0-4.8); Lymphocytes % (A) 27 %; MCH 28.5 pg (25.0-35.0); MCHC 33.7 g/dL (31.0-37.0); MCV 84.4 fL (80.0-100.0); Mean Platelet Volume 8.9; Monocytes # (A) 0.6 k/uL (0-1.0); Monocytes % (A) 6 %; Neutrophils # (A) 5.7 k/uL (1.3-7.7); Neutrophils % (A) 63 %; Platelet Count 343 k/uL (150-450); RBC 4.91 m/uL (3.80-5.40); RDW 13.5 % (11.5-15.5); WBC 9.1 k/uL (3.8-10.6)
[2019-06-22 17:09] LABS: Appearance,Urine Clear (Clear); Bilirubin,Urine Negative (Negative); Blood,Urine Negative (Negative); Color,Urine Light Yellow; Glucose,Urine (UA) Negative (Negative); Ketones,Urine Negative (Negative); Leukocyte Esterase,Urine Trace (Negative); Nitrite,Urine Negative (Negative); PH, Urine 7.5 (5.0-8.0); Protein,Urine Negative (Negative); RBC,Urine <1 /hpf (0-5); Specific Gravity,Urine 1.007 (1.001-1.035); Urobilinogen,Urine <2.0 mg/dL (<2.0); WBC,Urine 1 /hpf (0-5)
--- NOTE | 2019-06-22 18:06 | ED ---
Seizure HPI - General Chief Complaint: Seizure Stated Complaint: diarrhea/seizure Time Seen by Provider: 06/22/19 15:55 Source: patient, family Mode of arrival: ambulatory Limitations: no limitations - History of Present Illness Initial Comments: Patient is a 28-year-old female presenting to the emergency Department with complaints of nausea and is concerned for dehydration. Patient was the ER last night for having seizures. Computed tomography scan of her head was reviewed and showed no acute findings. Patient's guardian, her aunt, is here with her now and is concerned with patient's medications that could be causing her seizures. Patient denies recent fever, chills. She denies having any pain at this time including abdominal pain. She denies chest pain, shortness of breath. She states that her nausea is very mild at this time. Patient has yet to follow up with [facility] or her neurologist. There are no other complaints at this time. Upon arrival to the ER, vital signs are stable. - Related Data Home Medications Medication Instructions Recorded Confirmed Cholecalciferol (Vitamin D3) 125 mcg PO DAILY 04/18/19 06/21/19 [Vitamin D3] Nicotine Polacrilex [Nicorette] 2 mg BUCCAL Q2H PRN 04/18/19 06/21/19 Spironolactone [Aldactone] 50 mg PO DAILY 04/18/19 06/21/19 LORazepam [Ativan] 1 mg PO TID PRN 06/21/19 06/21/19 Paliperidone IM [Invega Sustenna] 234 mg IM ONCE 06/21/19 06/21/19 traZODone HCL 50 mg PO HS PRN 06/21/19 06/21/19 Previous Rx's Medication Instructions Recorded Ondansetron Odt [Zofran Odt] 4 mg PO Q8HR PRN #10 tab 06/21/19 Allergies Allergy/AdvReac Type Severity Reaction Status Date / Time fluphenazine [From Prolixin] Allergy seizures Verified 06/22/19 15:17 lamotrigine [From Lamictal] Allergy Rash/Hives Verified 06/22/19 15:17 metformin Allergy Rash/Hives Verified 06/22/19 15:17 Review of Systems ROS Statement: Those systems with pertinent positive or pertinent negative responses have been documented in the HPI. ROS Other: All systems not noted in ROS Statement are negative. Past Medical History Past Medical History: Seizure Disorder Additional Past Medical History / Comment(s): PCOS, migraines heart murmur History of Any Multi-Drug Resistant Organisms: None Reported Past Surgical History: No Surgical Hx Reported Additional Past Surgical History / Comment(s): Hx of heart murmur Past Anesthesia/Blood Transfusion Reactions: No Reported Reaction Additional Past Anesthesia/Blood Transfusion Reaction / Comment(s): cl austerphobia Past Psychological History: Anxiety, Bipolar, Depression, Panic Disorder, Schizoaffective Disorder Smoking Status: Current every day smoker Past Alcohol Use History: None Reported Past Drug Use History: None Reported - Past Family History Father Additional Family Medical History / Comment(s): Mother History Unknown: Yes Grandmother Family Medical History: Diabetes Mellitus General Exam - General Exam Comments Initial Comments: GENERAL: Well-appearing, well-nourished and in no acute distress. HEAD: Atraumatic, normocephalic. EYES: Pupils equal round and reactive to light, extraocular movements intact, sclera anicteric, conjunctiva are normal. ENT: TMs normal, nares patent, oropharynx clear without exudates. Moist mucous membranes. NECK: Normal range of motion, supple without lymphadenopathy or JVD. LUNGS: Breath sounds clear to auscultation bilaterally and equal. No wheezes rales or rhonchi. HEART: Regular rate and rhythm without murmurs, rubs or gallops. ABDOMEN: Soft, nontender, normoactive bowel sounds. No guarding, no rebound. No masses appreciated. : Deferred EXTREMITIES: Normal range of motion, no pitting or edema. No clubbing or cyanosis. Patient's strength is 5 out of 5 upper and lower extremities. Sensation is equal and bilateral. NEUROLOGICAL: Cranial nerves II through XII grossly intact. Normal speech, normal gait. PSYCH: Normal mood, normal affect. SKIN: Warm, Dry, normal turgor, no rashes or lesions noted. Limitations: no limitations Course Vital Signs 06/22/19 15:11 Temperature 98.5 F Pulse Rate 95 Respiratory 18 Rate Blood Pressure 116/77 O2 Sat by Pulse 98 Oximetry Medical Decision Making - Medical Decision Making Patient is a 28-year-old female here for nausea and recurrent seizures at home. She is vitals are stable. Patient had CT done yesterday which showed no acute findings. Lab work today is unremarkable, urine is normal, hCG is not detected. Patient was given fluids and has been stable in the ER. No seizures, patient feels like her normal self. She is stable for discharge. They need to follow up with neurology as well as [facility] with her concerns for her medications causing her seizures. They also have an appointment with PROTEIN SPECIALIST to discuss the concerned that her PCOS could be contributing to her seizures. Patient's guardian is in agreement with this plan of care as well. Return parameters were discussed with the patient and she verbalized understanding. Case discussed with Dr. Kim. - Lab Data Result diagrams: 06/22/19 16:35 06/22/19 16:35 Lab Results 06/22/19 06/22/19 06/22/19 Range/Units 16:35 16:35 17:00 WBC 9.1 (3.8-10.6) k/uL RBC 4.91 (3.80-5.40) m/uL Hgb 14.0 (11.4-16.0) gm/dL Hct 41.4 (34.0-46.0) % MCV 84.4 (80.0-100.0) fL MCH 28.5 (25.0-35.0) pg MCHC 33.7 (31.0-37.0) g/dL RDW 13.5 (11.5-15.5) % Plt Count 343 (150-450) k/uL Neutrophils % 63 % Lymphocytes % 27 % Monocytes % 6 % Eosinophils % 2 % Basophils % 1 % Neutrophils # 5.7 (1.3-7.7) k/uL Lymphocytes # 2.4 (1.0-4.8) k/uL Monocytes # 0.6 (0-1.0) k/uL Eosinophils # 0.2 (0-0.7) k/uL Basophils # 0.1 (0-0.2) k/uL Sodium 139 (137-145) mmol/L Potassium 3.9 (3.5-5.1) mmol/L Chloride 104 (98-107) mmol/L Carbon Dioxide 27 (22-30) mmol/L Anion Gap 8 mmol/L BUN 9 (7-17) mg/dL Creatinine 0.83 (0.52-1.04) mg/dL Est GFR (CKD-EPI)AfAm >90 (>60 ml/min/1.73 sqM) Est GFR (CKD-EPI)NonAf >90 (>60 ml/min/1.73 sqM) Glucose 85 (74-99) mg/dL Calcium 9.1 (8.4-10.2) mg/dL Total Bilirubin 0.8 (0.2-1.3) mg/dL AST 24 (14-36) U/L ALT 22 (4-34) U/L Alkaline Phosphatase 63 (38-126) U/L Total Protein 7.5 (6.3-8.2) g/dL Albumin 4.6 (3.5-5.0) g/dL Urine Color Light Yellow Urine Appearance Clear (Clear) Urine pH 7.5 (5.0-8.0) Ur Specific [place] 1.007 (1.001-1.035) Urine Protein Negative (Negative) Urine Glucose (UA) Negative (Negative) Urine Ketones Negative (Negative) Urine Blood Negative (Negative) Urine Nitrite Negative (Negative) Urine Bilirubin Negative (Negative) Urine Urobilinogen <2.0 (<2.0) mg/dL Ur Leukocyte Esterase Trace H (Negative) Urine RBC <1 (0-5) /hpf Urine WBC 1 (0-5) /hpf Urine HCG, Qual (Not Detectd) 06/22/19 Range/Units 17:00 WBC (3.8-10.6) k/uL RBC (3.80-5.40) m/uL Hgb (11.4-16.0) gm/dL Hct (34.0-46.0) % MCV (80.0-100.0) fL MCH (25.0-35.0) pg MCHC (31.0-37.0) g/dL RDW (11.5-15.5) % Plt Count (150-450) k/uL Neutrophils % % Lymphocytes % % Monocytes % % Eosinophils % % Basophils % % Neutrophils # (1.3-7.7) k/uL Lymphocytes # (1.0-4.8) k/uL Monocytes # (0-1.0) k/uL Eosinophils # (0-0.7) k/uL Basophils # (0-0.2) k/uL Sodium (137-145) mmol/L Potassium (3.5-5.1) mmol/L Chloride (98-107) mmol/L Carbon Dioxide (22-30) mmol/L Anion Gap mmol/L BUN (7-17) mg/dL Creatinine (0.52-1.04) mg/dL Est GFR (CKD-EPI)AfAm (>60 ml/min/1.73 sqM) Est GFR (CKD-EPI)NonAf (>60 ml/min/1.73 sqM) Glucose (74-99) mg/dL Calcium (8.4-10.2) mg/dL Total Bilirubin (0.2-1.3) mg/dL AST (14-36) U/L ALT (4-34) U/L Alkaline Phosphatase (38-126) U/L Total Protein (6.3-8.2) g/dL Albumin (3.5-5.0) g/dL Urine Color Urine Appearance (Clear) Urine pH (5.0-8.0) Ur Specific [place] (1.001-1.035) Urine Protein (Negative) Urine Glucose (UA) (Negative) Urine Ketones (Negative) Urine Blood (Negative) Urine Nitrite (Negative) Urine Bilirubin (Negative) Urine Urobilinogen (<2.0) mg/dL Ur Leukocyte Esterase (Negative) Urine RBC (0-5) /hpf Urine WBC (0-5) /hpf Urine HCG, Qual Not Detected (Not Detectd) Disposition Clinical Impression: Nausea, Dehydration, Recurrent seizures Disposition: HOME SELF-CARE Condition: Stable Instructions (If sedation given, give patient instructions): Recurrent Seizures in Adults (ED) Additional Instructions: Please return to the Emergency Department if symptoms worsen or any other concerns. Follow-up with neurologist and [facility]. Is patient prescribed a controlled substance at d/c from ED?: No Referrals: [facility] [Primary Care Provider] - 1-2 days
== END 2019-06-22 18:20 | disposition home or self-care (01) ==
LOC: EC 15:10
DX: G40.909 Epilepsy, unspecified, not intractable, without status epilepticus (principal); E86.0 Dehydration; R11.0 Nausea; F41.0 Panic disorder [episodic paroxysmal anxiety]; F31.9 Bipolar disorder, unspecified; F17.200 Nicotine dependence, unspecified, uncomplicated; Z79.899 Other long term (current) drug therapy; Z88.8 Allergy status to other drugs, medicaments and biological substances
CPT/HCPCS: 36415; 80053; 81001; 81025; 85025; 96360; 99284

== ENCOUNTER 2019-07-06 17:44 | Emergency (ER) | payer OTHER ==
[2019-07-06 18:12] VITALS: PULSE 96; TEMP 97.8
--- NOTE | 2019-07-06 18:43 | ED ---
Psych HPI - General Chief Complaint: Psychiatric Symptoms Stated Complaint: mental health Time Seen by Provider: 07/06/19 17:50 Source: patient, EMS Mode of arrival: EMS - History of Present Illness Initial Comments: 28-year-old female patient presents to the emergency department today requesting psychiatric evaluation. 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 States that she has been increasingly anxious regarding this. States she is also having suicidal ideation, she has no specific plan to take her life. Denies history of suicide attempt. Patient denies hallucinations. States she is taking her medications as directed. She lives by herself in an apartment. Denies alcohol or drug use. Denies any chance of . Patient denies any recent rash, fever, chills, cough, shortness of breath, chest pain, abdominal pain, nausea, vomiting, diarrhea, constipation, back pain, numbness, tingling, dizziness, weakness, hematuria, dysuria, urinary urgency, urinary frequency, headache, visual changes, or any other complaints. - Related Data Home Medications Medication Instructions Recorded Confirmed Cholecalciferol (Vitamin D3) 125 mcg PO DAILY 04/18/19 06/21/19 [Vitamin D3] Nicotine Polacrilex [Nicorette] 2 mg BUCCAL Q2H PRN 04/18/19 06/21/19 Spironolactone [Aldactone] 50 mg PO DAILY 04/18/19 06/21/19 LORazepam [Ativan] 1 mg PO TID PRN 06/21/19 06/21/19 Paliperidone IM [Invega Sustenna] 234 mg IM ONCE 06/21/19 06/21/19 traZODone HCL 50 mg PO HS PRN 06/21/19 06/21/19 Previous Rx's Medication Instructions Recorded Ondansetron Odt [Zofran Odt] 4 mg PO Q8HR PRN #10 tab 06/21/19 Allergies Allergy/AdvReac Type Severity Reaction Status Date / Time fluphenazine [From Prolixin] Allergy seizures Verified 06/22/19 15:17 lamotrigine [From Lamictal] Allergy Rash/Hives Verified 06/22/19 15:17 metformin Allergy Rash/Hives Verified 06/22/19 15:17 Review of Systems ROS Statement: Those systems with pertinent positive or pertinent negative responses have been documented in the HPI. ROS Other: All systems not noted in ROS Statement are negative. Past Medical History Past Medical History: Seizure Disorder Additional Past Medical History / Comment(s): PCOS, migraines heart murmur History of Any Multi-Drug Resistant Organisms: None Reported Past Surgical History: No Surgical Hx Reported Additional Past Surgical History / Comment(s): Hx of heart murmur Past Anesthesia/Blood Transfusion Reactions: No Reported Reaction Additional Past Anesthesia/Blood Transfusion Reaction / Comment(s): clausterphobia Past Psychological History: Anxiety, Bipolar, Depression, Panic Disorder, Schizoaffective Disorder Smoking Status: Current every day smoker Past Alcohol Use History: None Reported Past Drug Use History: None Reported - Past Family History Father Additional Family Medical History / Comment(s): Mother History Unknown: Yes Grandmother Family Medical History: Diabetes Mellitus General Exam Limitations: no limitations General appearance: alert, in no apparent distress, other (This is a well- developed, well-nourished adult female patient in no acute distress. Vital signs upon presentation are temperature 97.8F, pulse 96, respirations 20, blood pressure 137/83, pulse ox 97% on room air.) Eye exam: Present: normal appearance, PERRL, EOMI. Absent: scleral icterus, conjunctival injection, periorbital swelling Respiratory exam: Present: normal lung sounds bilaterally. Absent: respiratory distress, wheezes, rales, rhonchi, stridor Cardiovascular Exam: Present: regular rate, normal rhythm, normal heart sounds. Absent: systolic murmur, diastolic murmur, rubs, gallop, clicks GI/Abdominal exam: Present: soft, normal bowel sounds. Absent: distended, tenderness, guarding, rebound, rigid Neurological exam: Present: alert, oriented X3, CN II-XII intact Psychiatric exam: Present: normal affect, normal mood Skin exam: Present: warm, dry, intact, normal color. Absent: rash Course Vital Signs 07/06/19 07/06/19 07/06/19 17:58 18:12 19:13 Temperature 97.8 F Pulse Rate 96 Respiratory 20 20 20 Rate Blood Pressure 137/83 O2 Sat by Pulse 97 Oximetry Medical Decision Making - Medical Decision Making 28 year-old female patient presented for psychiatric evaluation. She was seen and evaluated by emergency psychiatric services. It is felt that she is safe for discharge home and does have a follow-up planned. Return parameters were discussed in detail. She verbalizes understanding and agrees with this plan. - Lab Data Lab Results 07/06/19 07/06/19 Range/Units 18:40 18:40 Urine HCG, Qual Not Detected (Not Detectd) Urine Opiates Screen Not Detected (NotDetected) Ur Oxycodone Screen Not Detected (NotDetected) Urine Methadone Screen Not Detected (NotDetected) Ur Propoxyphene Screen Not Detected (NotDetected) Ur Barbiturates Screen Not Detected (NotDetected) U Tricyclic Antidepress Not Detected (NotDetected) Ur Phencyclidine Scrn Not Detected (NotDetected) Ur Amphetamines Screen Not Detected (NotDetected) U Methamphetamines Scrn Not Detected (NotDetected) U Benzodiazepines Scrn Detected H (NotDetected) Urine Cocaine Screen Not Detected (NotDetected) U Marijuana (THC) Screen Not Detected (NotDetected) Disposition Clinical Impression: Depression, Anxiety Disposition: HOME SELF-CARE Condition: Good Instructions (If sedation given, give patient instructions): Depression (ED), Anxiety (ED) Additional Instructions: Follow-up with your primary care physician for recheck in 1-2 days. Follow-up with outpatient mental services as discussed. Return to the emergency department immediately for any new, worsening, or concerning symptoms. Is patient prescribed a controlled substance at d/c from ED?: No Referrals: [facility] [Primary Care Provider] - 1-2 days Time of Disposition: 23:28
[2019-07-06 19:01] LABS: Amphetamine Screen,Urine Not Detected (NotDetected); Barbiturate Screen,Urine Not Detected (NotDetected); Benzodiazepines Screen,Urine Detected (NotDetected); Cocaine Screen,Urine Not Detected (NotDetected); Methadone Screen, Urine Not Detected (NotDetected); Opiate Screen,Urine Not Detected (NotDetected); Oxycodone Screen, Urine Not Detected (NotDetected); Phencyclidine Screen,Urine Not Detected (NotDetected); Tricyclic Antidepressant,Urine Not Detected (NotDetected); Urn Cannabinoid Scrn Not Detected (NotDetected)
[2019-07-07 00:20] VITALS: BP 138/71; RESP 18
== END 2019-07-07 00:18 | disposition home or self-care (01) ==
LOC: EC 17:44
DX: F32.9 Major depressive disorder, single episode, unspecified (principal); F41.0 Panic disorder [episodic paroxysmal anxiety]; F17.200 Nicotine dependence, unspecified, uncomplicated; Z79.899 Other long term (current) drug therapy; Z88.8 Allergy status to other drugs, medicaments and biological substances
CPT/HCPCS: 80306; 81025; 82075; 99285

== ENCOUNTER 2019-08-19 01:45 | Emergency (ER) | payer OTHER ==
[2019-08-19 02:08] VITALS: RESP 16
[2019-08-19] MEDS ORDERED: diphenhydrAMINE 50 MG/ML 1 ML VIAL IVP STA (02:44)
[2019-08-19] MEDS ORDERED: predniSONE 50 MG TAB PO STA (03:02)
[2019-08-19] MEDS ORDERED: ONDANSETRON ODT 4 MG TAB PO STA (03:03)
--- NOTE | 2019-08-19 03:10 | ED ---
General Adult HPI <Renzo Mccain - Last Filed: 08/19/19 05:30> - General Source: patient, family, RN notes reviewed, old records reviewed Mode of arrival: wheelchair Limitations: no limitations <Hong Kohli - Last Filed: 08/19/19 19:10> - General Chief complaint: Seizure Stated complaint: Allergic reaction Time Seen by Provider: 08/19/19 02:00 - History of Present Illness Initial comments: 28-year-old female patient with long psychiatric history presents to ED for evaluation of swelling of the eyes. Patient is on investigation. Reportedly patient has been having issues with tardive dyskinesia symptoms including rapid eye movements. 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 The legal guardian states that this has been ongoing for the last 6 months. Patient also having issues with nausea and vomiting the last 6 months. Patient had some nausea and vomiting today. The guardian with the check on the patient when she discovered that the patient otherwise didn't appear to be somewhat swollen. Patient denying any acute complaints at this time. Denies any suicidal or homicidal ideations. Systemic: Pt denies fatigue, fever/chills, rash. Pt denies weakness, night sweats, weight loss. Neuro: Pt denies headache, visual disturbances, syncope or pre-syncope. HEENT: Pt denies ocular discharge or irritation, otalgia, rhinorrhea, pha ryngitis or notable lymphadenopathy. Cardiopulmonary: Pt denies chest pain, SOB, heart palpitations, dyspnea on exertion. Abdominal/GI: Pt denies abdominal pain, n/v/d. : Pt denies dysuria, burning w/ urination, frequency/urgency. Denies new onset urinary or bowel incontinence. MSK: Pt denies myalgia, loss of strength or function in extremities. Neuro: Pt denies new onset weakness, paresthesias. (Hong Kohli) - Related Data Home Medications Medication Instructions Recorded Confirmed Cholecalciferol (Vitamin D3) 125 mcg PO DAILY 04/18/19 06/21/19 [Vitamin D3] Nicotine Polacrilex [Nicorette] 2 mg BUCCAL Q2H PRN 04/18/19 06/21/19 Spironolactone [Aldactone] 50 mg PO DAILY 03/10/20 05/13/20 LORazepam [Ativan] 1 mg PO TID PRN 06/21/19 06/21/19 Paliperidone IM [Invega Sustenna] 234 mg IM ONCE 06/21/19 06/21/19 traZODone HCL 50 mg PO HS PRN 06/21/19 06/21/19 Previous Rx's Medication Instructions Recorded Ondansetron Odt [Zofran Odt] 4 mg PO Q8HR PRN #10 tab 06/21/19 Allergies Allergy/AdvReac Type Severity Reaction Status Date / Time fluphenazine [From Prolixin] Allergy seizures Verified 08/19/19 02:09 lamotrigine [From Lamictal] Allergy Rash/Hives Verified 08/19/19 02:09 metformin Allergy Rash/Hives Verified 08/19/19 02:09 Review of Systems ROS Other: All systems not noted in ROS Statement are negative. <Renzo Mccain - Last Filed: 08/19/19 05:30> ROS Other: All systems not noted in ROS Statement are negative. <Hong Kohli - Last Filed: 08/19/19 19:10> ROS Statement: Those systems with pertinent positive or pertinent negative responses have been documented in the HPI. Past Medical History Past Medical History: Seizure Disorder Additional Past Medical History / Comment(s): PCOS, migraines heart murmur History of Any Multi-Drug Resistant Organisms: None Reported Past Surgical History: No Surgical Hx Reported Additional Past Surgical History / Comment(s): Hx of heart murmur Past Anesthesia/Blood Transfusion Reactions: No Reported Reaction Additional Past Anesthesia/Blood Transfusion Reaction / Comment(s): clausterphobia Past Psychological History: Anxiety, Bipolar, Depression, Panic Disorder, Schizoaffective Disorder Smoking Status: Current every day smoker Past Alcohol Use History: None Reported Past Drug Use History: None Reported - Past Family History Father Additional Family Medical History / Comment(s): Mother History Unknown: Yes Grandmother Family Medical History: Diabetes Mellitus <Hong Kohli - Last Filed: 08/19/19 19:10> General Exam Limitations: no limitations <Hong Kohli - Last Filed: 08/19/19 19:10> - General Exam Comments Initial Comments: Constitutional: NAD, AOX3, Pt has pleasant affect. HEENT: NC/AT, trachea midline, neck supple, no lymphadenopathy. Posterior pharynx non erythematous, without exudates. External ears appear normal, without discharge. Mucous membranes moist. Eyes PERRLA, EOM intact. There is no scleral icterus. No pallor noted. There does appear to be mild periorbital swelling bilaterally. No oropharyngeal involvement no rash. Cardiopulmonary: RRR, no murmurs, rubs or gallops, no JVD noted. Lungs CTAB in anterior and posterior mason. No peripheral edema. Abdominal exam: Abdomen soft and non-distended. Abdomen non-tender to palpation in all 4 quadrants. Bowel sounds active in LLQ. No hepatosplenomegaly. No ecchymosis Neuro: CN II-XII intact. No nuchal rigidity. No raccon eyes, no avitia sign, no hemotympanum. No cervical spinal tenderness. MSK: Full active ROM in upper and lower extremities, 5/5 stregnth. (Hong Kohli) Course Vital Signs 08/19/19 08/19/19 02:01 05:57 Temperature 98.7 F 98.2 F Pulse Rate 85 65 Respiratory 16 16 Rate Blood Pressure 126/79 124/84 O2 Sat by Pulse 98 97 Oximetry Medical Decision Making - Lab Data Result diagrams: 08/19/19 02:57 08/19/19 02:57 <Renzo Mccain - Last Filed: 08/19/19 05:30> - Lab Data Result diagrams: 08/19/19 02:57 08/19/19 02:57 <Hong Kohli - Last Filed: 08/19/19 19:10> - Medical Decision Making 28-year-old female patient with long psychiatric history presents to ED for evaluation of swelling of the eyes. Patient is on investigation. Reportedly patient has been having issues with tardive dyskinesia symptoms including rapid eye movements. 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 The legal guardian states that this has been ongoing for the last 6 months. Patient also having issues with nausea and vomiting the last 6 months. Patient had some nausea and vomiting today. The guardian with the check on the patient when she discovered that the patient eyes did appear to be somewhat swollen. Patient denying any other acute complaints at this time. Denies any suicidal or homicidal ideations. Pt VSS, afebrile. Physical exam display mild periorbital swelling bilaterally. Pt was initiated on benadryl, prednisone. Pt signed out to Dr. Arteaga pending laboratory investigations. (Hong Kohli) - Lab Data Lab Results 08/19/19 08/19/19 08/19/19 Range/Units 02:57 02:57 04:01 WBC 11.0 H (3.8-10.6) k/uL RBC 4.77 (3.80-5.40) m/uL Hgb 13.7 (11.4-16.0) gm/dL Hct 39.9 (34.0-46.0) % MCV 83.6 (80.0-100.0) fL MCH 28.7 (25.0-35.0) pg MCHC 34.4 (31.0-37.0) g/dL RDW 13.1 (11.5-15.5) % Plt Count 231 (150-450) k/uL Neutrophils % 78 % Lymphocytes % 15 % Monocytes % 4 % Eosinophils % 2 % Basophils % 1 % Neutrophils # 8.7 H (1.3-7.7) k/uL Lymphocytes # 1.6 (1.0-4.8) k/uL Monocytes # 0.5 (0-1.0) k/uL Eosinophils # 0.2 (0-0.7) k/uL Basophils # 0.1 (0-0.2) k/uL Sodium 139 (137-145) mmol/L Potassium 4.2 (3.5-5.1) mmol/L Chloride 108 H (98-107) mmol/L Carbon Dioxide 21 L (22-30) mmol/L Anion Gap 10 mmol/L BUN 7 (7-17) mg/dL Creatinine 0.66 (0.52-1.04) mg/dL Est GFR (CKD-EPI)AfAm >90 (>60 ml/min/1.73 sqM) Est GFR (CKD-EPI)NonAf >90 (>60 ml/min/1.73 sqM) Glucose 110 H (74-99) mg/dL Calcium 9.4 (8.4-10.2) mg/dL Total Bilirubin 0.5 (0.2-1.3) mg/dL AST 18 (14-36) U/L ALT 15 (4-34) U/L Alkaline Phosphatase 54 (38-126) U/L Total Protein 6.6 (6.3-8.2) g/dL Albumin 4.2 (3.5-5.0) g/dL Urine Color Urine Appearance (Clear) Urine pH (5.0-8.0) Ur Specific [place] (1.001-1.035) Urine Protein (Negative) Urine Glucose (UA) (Negative) Urine Ketones (Negative) Urine Blood (Negative) Urine Nitrite (Negative) Urine Bilirubin (Negative) Urine Urobilinogen (<2.0) mg/dL Ur Leukocyte Esterase (Negative) Urine RBC (0-5) /hpf Urine WBC (0-5) /hpf Ur Squamous Epith Cells (0-4) /hpf Urine Bacteria (None) /hpf Urine HCG, Qual Not Detected (Not Detectd) 08/19/19 Range/Units 04:05 WBC (3.8-10.6) k/uL RBC (3.80-5.40) m/uL Hgb (11.4-16.0) gm/dL Hct (34.0-46.0) % MCV (80.0-100.0) fL MCH (25.0-35.0) pg MCHC (31.0-37.0) g/dL RDW (11.5-15.5) % Plt Count (150-450) k/uL Neutrophils % % Lymphocytes % % Monocytes % % Eosinophils % % Basophils % % Neutrophils # (1.3-7.7) k/uL Lymphocytes # (1.0-4.8) k/uL Monocytes # (0-1.0) k/uL Eosinophils # (0-0.7) k/uL Basophils # (0-0.2) k/uL Sodium (137-145) mmol/L Potassium (3.5-5.1) mmol/L Chloride (98-107) mmol/L Carbon Dioxide (22-30) mmol/L Anion Gap mmol/L BUN (7-17) mg/dL Creatinine (0.52-1.04) mg/dL Est GFR (CKD-EPI)AfAm (>60 ml/min/1.73 sqM) Est GFR (CKD-EPI)NonAf (>60 ml/min/1.73 sqM) Glucose (74-99) mg/dL Calcium (8.4-10.2) mg/dL Total Bilirubin (0.2-1.3) mg/dL AST (14-36) U/L ALT (4-34) U/L Alkaline Phosphatase (38-126) U/L Total Protein (6.3-8.2) g/dL Albumin (3.5-5.0) g/dL Urine Color Light Yellow Urine Appearance Clear (Clear) Urine pH 7.0 (5.0-8.0) Ur Specific [place] 1.002 (1.001-1.035) Urine Protein Negative (Negative) Urine Glucose (UA) Negative (Negative) Urine Ketones Negative (Negative) Urine Blood Negative (Negative) Urine Nitrite Negative (Negative) Urine Bilirubin Negative (Negative) Urine Urobilinogen <2.0 (<2.0) mg/dL Ur Leukocyte Esterase Trace H (Negative) Urine RBC <1 (0-5) /hpf Urine WBC 2 (0-5) /hpf Ur Squamous Epith Cells <1 (0-4) /hpf Urine Bacteria Rare H (None) /hpf Urine HCG, Qual (Not Detectd) Disposition Is patient prescribed a controlled substance at d/c from ED?: No <Renzo Mccain - Last Filed: 08/19/19 05:30> Is patient prescribed a controlled substance at d/c from ED?: No <Hong Kohli - Last Filed: 08/19/19 19:10> Clinical Impression: Allergic conjunctivitis Disposition: HOME SELF-CARE Condition: Good Instructions (If sedation given, give patient instructions): Allergies (ED) Referrals: [facility] [Primary Care Provider] - 1-2 days
[2019-08-19 03:14] LABS: Basophils # (A) 0.1 k/uL (0-0.2); Basophils % (A) 1 %; Eosinophils # (A) 0.2 k/uL (0-0.7); Eosinophils % (A) 2 %; HCT 39.9 % (34.0-46.0); HGB 13.7 gm/dL (11.4-16.0); Lymphocytes # (A) 1.6 k/uL (1.0-4.8); Lymphocytes % (A) 15 %; MCH 28.7 pg (25.0-35.0); MCHC 34.4 g/dL (31.0-37.0); MCV 83.6 fL (80.0-100.0); Mean Platelet Volume 10.8; Monocytes # (A) 0.5 k/uL (0-1.0); Monocytes % (A) 4 %; Neutrophils # (A) 8.7 k/uL (1.3-7.7); Neutrophils % (A) 78 %; Platelet Count 231 k/uL (150-450); RBC 4.77 m/uL (3.80-5.40); RDW 13.1 % (11.5-15.5)
[2019-08-19 03:33] LABS: ALT 15 U/L (4-34); AST 18 U/L (14-36); African American GFR (CKD) >90 (>60 ml/min/1.73 sqM); Albumin 4.2 g/dL (3.5-5.0); Alkaline Phosphatase 54 U/L (38-126); Anion Gap 10 mmol/L; Blood Urea Nitrogen 7 mg/dL (7-17); Calcium 9.4 mg/dL (8.4-10.2); Carbon Dioxide 21 mmol/L (22-30); Chloride 108 mmol/L (98-107); Glucose 110 mg/dL (74-99); Non-African American GFR(CKD) >90 (>60 ml/min/1.73 sqM); Potassium 4.2 mmol/L (3.5-5.1); Sodium 139 mmol/L (137-145); Total Bilirubin 0.5 mg/dL (0.2-1.3); Total Protein 6.6 g/dL (6.3-8.2)
[2019-08-19 04:18] LABS: Appearance,Urine Clear (Clear); Bacteria,Urine Rare /hpf; Bilirubin,Urine Negative (Negative); Blood,Urine Negative (Negative); Color,Urine Light Yellow; Glucose,Urine (UA) Negative (Negative); Ketones,Urine Negative (Negative); Leukocyte Esterase,Urine Trace (Negative); Nitrite,Urine Negative (Negative); Protein,Urine Negative (Negative); RBC,Urine <1 /hpf (0-5); Specific Gravity,Urine 1.002 (1.001-1.035); Squamous Epithelial Cell,Urine <1 /hpf (0-4); Urobilinogen,Urine <2.0 mg/dL (<2.0); WBC,Urine 2 /hpf (0-5)
[2019-08-19 06:03] VITALS: BP 124/84; PULSE 65; TEMP 98.2
== END 2019-08-19 06:04 | disposition home or self-care (01) ==
LOC: EC 01:45
DX: H10.13 Acute atopic conjunctivitis, bilateral (principal); G24.01 Drug induced subacute dyskinesia; G40.909 Epilepsy, unspecified, not intractable, without status epilepticus; F41.0 Panic disorder [episodic paroxysmal anxiety]; F31.9 Bipolar disorder, unspecified; F17.200 Nicotine dependence, unspecified, uncomplicated; Z79.899 Other long term (current) drug therapy; Z88.8 Allergy status to other drugs, medicaments and biological substances
CPT/HCPCS: 36415; 93005; 80053; 85025; 81001; 81025; 99284; 96374; J1200; J7512

== ENCOUNTER 2019-08-29 09:31 | Emergency (ER) | payer OTHER ==
--- NOTE | 2019-08-29 09:49 | ED ---
Overdose HPI - General Stated Complaint: mental health Time Seen by Provider: 08/29/19 09:33 - History of Present Illness Initial Comments: 29-year-old female presents today for chief complaint of overuse of nicotine, fall. Ptient states she fell today and that why she came in but told EMS is was because she takes too much nicotine. She states for 10 years she has been dipping tobacco up to 2 tins a day and a half pack of cigarettes. Patient denies vomiting. Admits to nausea. Denies diarrhea, drooling. Denies lightheadedness, tremors, palpatations. Patient denies tobacco use this morning. Patinet denies seizure activity. Patient denies additional complaints initially denying suicidal ideation or plan. Patient appears well on arrival no acute distress. - Related Data Home Medications Medication Instructions Recorded Confirmed Nicotine Polacrilex [Nicorette] 2 mg BUCCAL Q2H PRN 04/18/19 08/29/19 Paliperidone IM [Invega Sustenna] 234 mg IM Q28D 06/21/19 08/29/19 Albuterol Sulfate [Albuterol 1 - 2 puff PO RT-Q6H PRN 08/29/19 08/29/19 Sulfate Hfa] Beclomethasone Dip 80 Mcg/Puff 1 puff INHALATION RT-BID 08/29/19 08/29/19 [Qvar 80 mcg] Fluticasone Nasal [place] [Flonase 1 - 2 spr EA NOSTRIL DAILY 08/29/19 08/29/19 Nasal [place]] LORazepam [Ativan] 0.5 mg PO TID PRN 08/29/19 08/29/19 Norgestimate-Ethinyl Estradiol 1 tab PO DAILY 08/29/19 08/29/19 [Sprintec 28 Day Tablet] Allergies Allergy/AdvReac Type Severity Reaction Status Date / Time fluphenazine [From Prolixin] Allergy seizures Verified 08/19/19 02:09 lamotrigine [From Lamictal] Allergy Rash/Hives Verified 08/19/19 02:09 metformin Allergy Rash/Hives Verified 08/19/19 02:09 Review of Systems ROS Statement: Those systems with pertinent positive or pertinent negative responses have been documented in the HPI. ROS Other: All systems not noted in ROS Statement are negative. Past Medical History Past Medical History: Seizure Disorder Additional Past Medical History / Comment(s): PCOS, migraines heart murmur History of Any Multi-Drug Resistant Organisms: None Reported Past Surgical History: No Surgical Hx Reported Additional Past Surgical History / Comment(s): Hx of heart murmur Past Anesthesia/Blood Transfusion Reactions: No Reported Reaction Additional Past Anesthesia/Blood Transfusion Reaction / Comment(s): cla usterphobia Past Psychological History: Anxiety, Bipolar, Depression, Panic Disorder, Schizoaffective Disorder Past Alcohol Use History: None Reported Past Drug Use History: None Reported - Past Family History Father Additional Family Medical History / Comment(s): Mother History Unknown: Yes Grandmother Family Medical History: Diabetes Mellitus General Exam - General Exam Comments Initial Comments: General: The patient is awake and alert, in no distress Eye: Pupils are equal, round and reactive to light, extra-ocular movements are intact. No nystagmus. There is normal conjunctiva bilaterally. No signs of icterus. Ears, nose, mouth and throat: There are moist mucous membranes and no oral lesions. Neck: The neck is supple, there is no tenderness or JVD. Cardiovascular: There is a regular rate and rhythm. No murmur, rub or gallop is appreciated. Respiratory: Lungs are clear to auscultation, respirations are non-labored, breath sounds are equal. No wheezes, stridor, rales, or rhonchi. Gastrointestinal: Soft, non-distended, non-tender abdomen without masses or organomegaly noted. There is no rebound or guarding present. Musculoskeletal: Normal ROM, no tenderness. Strength 5/5. Sensation intact. Pulses equal bilaterally 2+. Neurological: A&O x 3. CN II-XII intact, There are no obvious motor or sensory deficits. Coordination appears grossly intact. Speech is normal. No tremor. Skin: Skin is warm and dry and no rashes or lesions are noted. Psychiatric: Cooperative, appropriate mood & affect, normal judgment. Course Vital Signs 08/29/19 08/29/19 09:42 13:23 Temperature 98.6 F 98.1 F Pulse Rate 97 91 Respiratory 16 16 Rate Blood Pressure 140/69 123/74 O2 Sat by Pulse 98 97 Oximetry Medical Decision Making - Medical Decision Making 29yo presenting for chronic nicotine use, denies intentional overdose. Patient states that she also fell into the bushes today complaining of head pain. No signs of trauma on exam. Pt states that the actual reason she came to the ER. Patient doesnt appear altered or confused. Patient has no tremor. Patient HR within normal limits. BP stable. Patient states she has has fleeting suicidal thoughts. EPS notified of patient who evaluated patient iwth ACT team and recommended discharge with ACT f/u. Patient discharged appearing well after discussing case with Dr. Humphreys. Guardian bedside who is agreeable and [facility]. - Lab Data Result diagrams: 08/29/19 10:40 08/29/19 10:40 Lab Results 08/29/19 08/29/19 08/29/19 Range/Units 10:00 10:40 10:40 WBC 10.5 (3.8-10.6) k/uL RBC 4.94 (3.80-5.40) m/uL Hgb 14.2 (11.4-16.0) gm/dL Hct 40.6 (34.0-46.0) % MCV 82.2 (80.0-100.0) fL MCH 28.8 (25.0-35.0) pg MCHC 35.0 (31.0-37.0) g/dL RDW 13.2 (11.5-15.5) % Plt Count 257 (150-450) k/uL Neutrophils % 76 % Lymphocytes % 14 % Monocytes % 7 % Eosinophils % 2 % Basophils % 1 % Neutrophils # 8.0 H (1.3-7.7) k/uL Lymphocytes # 1.4 (1.0-4.8) k/uL Monocytes # 0.8 (0-1.0) k/uL Eosinophils # 0.2 (0-0.7) k/uL Basophils # 0.1 (0-0.2) k/uL Sodium 140 (137-145) mmol/L Potassium 4.0 (3.5-5.1) mmol/L Chloride 109 H (98-107) mmol/L Carbon Dioxide 22 (22-30) mmol/L Anion Gap 9 mmol/L BUN 7 (7-17) mg/dL Creatinine 0.63 (0.52-1.04) mg/dL Est GFR (CKD-EPI)AfAm >90 (>60 ml/min/1.73 sqM) Est GFR (CKD-EPI)NonAf >90 (>60 ml/min/1.73 sqM) Glucose 92 (74-99) mg/dL Calcium 9.5 (8.4-10.2) mg/dL Total Bilirubin 1.2 (0.2-1.3) mg/dL AST 29 (14-36) U/L ALT 23 (4-34) U/L Alkaline Phosphatase 60 (38-126) U/L Total Protein 7.5 (6.3-8.2) g/dL Albumin 4.8 (3.5-5.0) g/dL Urine Color Light Yellow Urine Appearance Clear (Clear) Urine pH 7.0 (5.0-8.0) Ur Specific [place] 1.010 (1.001-1.035) Urine Protein Negative (Negative) Urine Glucose (UA) Negative (Negative) Urine Ketones Negative (Negative) Urine Blood Negative (Negative) Urine Nitrite Negative (Negative) Urine Bilirubin Negative (Negative) Urine Urobilinogen <2.0 (<2.0) mg/dL Ur Leukocyte Esterase Negative (Negative) Salicylates <1.0 mg/dL Urine Opiates Screen Not Detected (NotDetected) Ur Oxycodone Screen Not Detected (NotDetected) Urine Methadone Screen Not Detected (NotDetected) Ur Propoxyphene Screen Not Detected (NotDetected) Acetaminophen <10.0 ug/mL Ur Barbiturates Screen Not Detected (NotDetected) U Tricyclic Antidepress Not Detected (NotDetected) Ur Phencyclidine Scrn Not Detected (NotDetected) Ur Amphetamines Screen Not Detected (NotDetected) U Methamphetamines Scrn Not Detected (NotDetected) U Benzodiazepines Scrn Not Detected (NotDetected) Urine Cocaine Screen Not Detected (NotDetected) U Marijuana (THC) Screen Not Detected (NotDetected) Disposition Clinical Impression: Depression, Fall, Nicotine dependence with current use Disposition: HOME SELF-CARE Condition: Good Instructions (If sedation given, give patient instructions): How to Stop Smoking (ED), Depression (ED), How to Quit Using Smokeless Tobacco (ED) Additional Instructions: Please use medication as discussed. Please follow-up with family doctor in the next 2 days. Please return to emergency room if the symptoms increase or worsen or for any other concerns. Is patient prescribed a controlled substance at d/c from ED?: No Referrals: [facility] [Primary Care Provider] - 1-2 days Time of Disposition: 13:38
[2019-08-29 09:50] VITALS: RESP 16
[2019-08-29 10:32] LABS: Appearance,Urine Clear (Clear); Bilirubin,Urine Negative (Negative); Blood,Urine Negative (Negative); Color,Urine Light Yellow; Glucose,Urine (UA) Negative (Negative); Ketones,Urine Negative (Negative); Leukocyte Esterase,Urine Negative (Negative); Nitrite,Urine Negative (Negative); Protein,Urine Negative (Negative); Urobilinogen,Urine <2.0 mg/dL (<2.0)
[2019-08-29 10:56] LABS: Amphetamine Screen,Urine Not Detected (NotDetected); Barbiturate Screen,Urine Not Detected (NotDetected); Benzodiazepines Screen,Urine Not Detected (NotDetected); Cocaine Screen,Urine Not Detected (NotDetected); Methadone Screen, Urine Not Detected (NotDetected); Opiate Screen,Urine Not Detected (NotDetected); Oxycodone Screen, Urine Not Detected (NotDetected); Phencyclidine Screen,Urine Not Detected (NotDetected); Tricyclic Antidepressant,Urine Not Detected (NotDetected); Urn Cannabinoid Scrn Not Detected (NotDetected)
[2019-08-29 10:57] LABS: Basophils # (A) 0.1 k/uL (0-0.2); Basophils % (A) 1 %; Eosinophils # (A) 0.2 k/uL (0-0.7); Eosinophils % (A) 2 %; HCT 40.6 % (34.0-46.0); HGB 14.2 gm/dL (11.4-16.0); Lymphocytes # (A) 1.4 k/uL (1.0-4.8); Lymphocytes % (A) 14 %; MCH 28.8 pg (25.0-35.0); MCV 82.2 fL (80.0-100.0); Mean Platelet Volume 10.4; Monocytes # (A) 0.8 k/uL (0-1.0); Monocytes % (A) 7 %; Neutrophils % (A) 76 %; Platelet Count 257 k/uL (150-450); RBC 4.94 m/uL (3.80-5.40); RDW 13.2 % (11.5-15.5); WBC 10.5 k/uL (3.8-10.6)
[2019-08-29 11:08] LABS: ALT 23 U/L (4-34); AST 29 U/L (14-36); Acetaminophen <10.0 ug/mL; African American GFR (CKD) >90 (>60 ml/min/1.73 sqM); Albumin 4.8 g/dL (3.5-5.0); Alkaline Phosphatase 60 U/L (38-126); Anion Gap 9 mmol/L; Blood Urea Nitrogen 7 mg/dL (7-17); Calcium 9.5 mg/dL (8.4-10.2); Carbon Dioxide 22 mmol/L (22-30); Chloride 109 mmol/L (98-107); Glucose 92 mg/dL (74-99); Non-African American GFR(CKD) >90 (>60 ml/min/1.73 sqM); Salicylate <1.0 mg/dL; Sodium 140 mmol/L (137-145); Total Bilirubin 1.2 mg/dL (0.2-1.3); Total Protein 7.5 g/dL (6.3-8.2)
--- NOTE | 2019-08-29 11:09 | CT ---
EXAMINATION TYPE: CT brain cspine wo con DATE OF EXAM: 08/29/2019 COMPARISON: CT 06/21/2019 HISTORY: fall, trauma and pain CT DLP: 1745.3 mGycm Automated exposure control for dose reduction was used. TECHNIQUE: CT scan of the head and cervical spine are performed without contrast. FINDINGS: There is no acute intracranial hemorrhage, mass effect, or midline shift identified. The ventricles and sulci are within normal limits in size. The globes are intact and the visualized sin uses are clear. Cervical spine is visualized in its entirety from C1 through upper thoracic levels and demonstrates s atisfactory alignment without evidence of acute fracture or dislocation. Prevertebral soft tissue ap pears within normal limits. The C1-C2 articulation is unremarkable. IMPRESSION: 1. There is no acute fracture or dislocation evident in the cervical spine. 2. No acute intracranial hemorrhage, mass effect, or midline shift is seen.
[2019-08-29] MEDS ORDERED: ONDANSETRON ODT 4 MG TAB PO STA (12:33)
[2019-08-29 13:27] VITALS: BP 123/74; PULSE 91; TEMP 98.1
[2019-08-30 14:16] LABS: Cotinine 534.8 ng/mL (<2.0); Nicotine 11.8 ng/mL (<2.0)
== END 2019-08-29 14:01 | disposition home or self-care (01) ==
LOC: SUPCPDRO 09:31 → EC 09:31
DX: F25.1 Schizoaffective disorder, depressive type (principal); F17.210 Nicotine dependence, cigarettes, uncomplicated; R11.0 Nausea; R51 Headache; R45.851 Suicidal ideations; F41.9 Anxiety disorder, unspecified; F25.0 Schizoaffective disorder, bipolar type; Z79.51 Long term (current) use of inhaled steroids; Z79.3 Long term (current) use of hormonal contraceptives; Z79.899 Other long term (current) drug therapy; Z88.8 Allergy status to other drugs, medicaments and biological substances; W17.89XA Other fall from one level to another, initial encounter
CPT/HCPCS: 82075; 36415; 93005; 80053; 85025; 81003; 80306; 83520; 72125; 70450; 99285; G0480 ×2; 80323; 80329

== ENCOUNTER 2019-08-29 18:45 | Inpatient (IN) | payer MEDICAID, OTHER ==
[2019-08-29 18:59] VITALS: RESP 16
--- NOTE | 2019-08-29 20:05 | ED ---
Psych HPI - General Chief Complaint: Psychiatric Symptoms Stated Complaint: Mental Health Time Seen by Provider: 08/29/19 18:50 Source: patient Mode of arrival: EMS - History of Present Illness Initial Comments: Patient is a 29-year-old female past history of PCOS, migraines who presents to the emergency department with suicidal ideations. Patient reports that she is going to stick her hand in an electrical outlet in order to kill herself. Patient was seen earlier in the emergency department for nicotine overdose. She was evaluated at that time and deemed stable for discharge. Patient reports that her symptoms of suicidal ideations became stronger when she got home. She denies attempting to harm herself at this time. Patient is currently on several psychiatric medications which she states she has been compliant. Patient lives alone. Denies homicidal ideations or hallucinations. No other alleviating, precipitating or modifying factors - Related Data Home Medications Medication Instructions Recorded Confirmed Nicotine Polacrilex [Nicorette] 2 mg BUCCAL Q2H PRN 04/18/19 08/30/19 Paliperidone IM [Invega Sustenna] 234 mg IM Q28D 06/21/19 08/30/19 Albuterol Sulfate [Albuterol 1 - 2 puff INHALATION RT-Q6H PRN 08/29/19 08/30/19 Sulfate Hfa] Beclomethasone Dip 80 Mcg/Puff 1 puff INHALATION RT-BID 08/29/19 08/30/19 [Qvar 80 mcg] Fluticasone Nasal [place] [Flonase 1 - 2 spr EA NOSTRIL DAILY 08/29/19 08/30/19 Nasal [place]] LORazepam [Ativan] 0.5 mg PO TID PRN 08/29/19 08/30/19 Norgestimate-Ethinyl Estradiol 1 tab PO DAILY 08/29/19 08/30/19 [Sprintec 28 Day Tablet] Allergies Allergy/AdvReac Type Severity Reaction Status Date / Time fluphenazine [From Prolixin] Allergy seizures Verified 08/30/19 02:10 lamotrigine [From Lamictal] Allergy Rash/Hives Verified 08/30/19 02:10 metformin Allergy Rash/Hives Verified 08/30/19 02:10 Review of Systems ROS Statement: Those systems with pertinent positive or pertinent negative responses have been documented in the HPI. ROS Other: All systems not noted in ROS Statement are negative. Past Medical History Past Medical History: Seizure Disorder Additional Past Medical History / Comment(s): PCOS, migraines heart murmur History of Any Multi-Drug Resistant Organisms: None Reported Past Surgical History: No Surgical Hx Reported Additional Past Surgical History / Comment(s): Hx of heart murmur Past Anesthesia/Blood Transfusion Reactions: No Reported Reaction Additional Past Anesthesia/Blood Transfusion Reaction / Comment(s): clausterphobia Past Psychological History: Anxiety, Bipolar, Depression, Panic Disorder, Schizoaffective Disorder Smoking Status: Current every day smoker Past Alcohol Use History: None Reported Past Drug Use History: None Reported - Past Family History Father Additional Family Medical History / Comment(s): Mother History Unknown: Yes Grandmother Family Medical History: Diabetes Mellitus General Exam Limitations: no limitations General appearance: alert, in no apparent distress Head exam: Present: atraumatic, normocephalic, normal inspection Eye exam: Present: normal appearance, PERRL, EOMI. Absent: scleral icterus, conjunctival injection, periorbital swelling ENT exam: Present: normal exam, mucous membranes moist Neck exam: Present: normal inspection. Absent: tenderness, meningismus, lymphadenopathy Respiratory exam: Present: normal lung sounds bilaterally. Absent: respiratory distress, wheezes, rales, rhonchi, stridor Cardiovascular Exam: Present: regular rate, normal rhythm, normal heart sounds. Absent: systolic murmur, diastolic murmur, rubs, gallop, clicks GI/Abdominal exam: Present: soft, normal bowel sounds. Absent: distended, t enderness, guarding, rebound, rigid Extremities exam: Present: normal inspection, full ROM, normal capillary refill. Absent: tenderness, pedal edema, joint swelling, calf tenderness Back exam: Present: normal inspection Neurological exam: Present: alert, oriented X3, CN II-XII intact Psychiatric exam: Present: depressed, flat affect Skin exam: Present: warm, dry, intact, normal color. Absent: rash Course Vital Signs 08/29/19 08/30/19 18:48 00:07 Temperature 98 F 98.0 F Pulse Rate 100 Pulse Rate [ 83 Right Sitting] Respiratory 16 16 Rate Blood Pressure 127/82 Blood Pressure 123/68 [Right Arm Sitting] O2 Sat by Pulse 96 100 Oximetry Medical Decision Making - Medical Decision Making Upon arrival patient placed into room 23. A throat history of physical exam is performed. I did review the patient's labs from earlier. She does provide a urine sample. She is awaiting EPS evaluation at this time Patient is evaluated by CPS and she will be admitted to the mental health unit. Cert is filled out - Lab Data Result diagrams: 08/30/19 08:08 08/30/19 08:08 Lab Results 08/29/19 08/29/19 Range/Units 19:02 19:02 Urine Color Light Yellow Urine Appearance Clear (Clear) Urine pH 6.0 (5.0-8.0) Ur Specific [place] 1.006 (1.001-1.035) Urine Protein Negative (Negative) Urine Glucose (UA) Negative (Negative) Urine Ketones Negative (Negative) Urine Blood Negative (Negative) Urine Nitrite Negative (Negative) Urine Bilirubin Negative (Negative) Urine Urobilinogen <2.0 (<2.0) mg/dL Ur Leukocyte Esterase Negative (Negative) Urine HCG, Qual Not Detected (Not Detectd) Disposition Clinical Impression: Depression, Suicidal ideation Disposition: ADMITTED IP TO THIS [facility] Condition: Stable Is patient prescribed a controlled substance at d/c from ED?: No Decision to Admit Reason: Admit from EC Decision Date: 08/29/19 Decision Time: 22:50
[2019-08-29 20:54] LABS: Appearance,Urine Clear (Clear); Bilirubin,Urine Negative (Negative); Blood,Urine Negative (Negative); Color,Urine Light Yellow; Glucose,Urine (UA) Negative (Negative); Ketones,Urine Negative (Negative); Leukocyte Esterase,Urine Negative (Negative); Nitrite,Urine Negative (Negative); Protein,Urine Negative (Negative); Specific Gravity,Urine 1.006 (1.001-1.035); Urobilinogen,Urine <2.0 mg/dL (<2.0)
[2019-08-29] MEDS ORDERED: MAG HYDROX/AL HYDROX/SIMETH 30 ML CUP PO PRN (23:50)
[2019-08-29] MEDS ORDERED: MAGNESIUM HYDROXIDE 2,400 MG/10 ML CUP PO PRN (23:50)
[2019-08-29] MEDS ORDERED: ACETAMINOPHEN TAB 325 MG TAB PO PRN (23:50)
--- NOTE | 2019-08-30 01:36 | P.HPIM ---
History of Present Illness H&P Date: 08/30/19 The patient is a 29-year-old female with a PMH of PCOS, hirsutism, and asthma who presented to the ED with depression and suicidal ideation. The patient was admitted the mental health unit where she was seen and evaluated. The patient noted that she feels her life is very difficult due to her medical conditions and that she simply does not have the will to live. The patient otherwise denied any active complaints. She denied chest pain, shortness of breath, fever, chills, nausea, or vomiting. She denied abdominal pain, or diarrhea. Urinalysis in the emergency room was unremarkable. Review of Systems Pertinent positives and negatives as discussed in HPI, a complete review of systems was performed and all other systems are negative. Past Medical History Past Medical History: Seizure Disorder Additional Past Medical History / Comment(s): PCOS, migraines heart murmur History of Any Multi-Drug Resistant Organisms: None Reported Past Surgical History: No Surgical Hx Reported Additional Past Surgical History / Comment(s): Hx of heart murmur Past Anesthesia/Blood Transfusion Reactions: No Reported Reaction Additional Past Anesthesia/Blood Transfusion Reaction / Comment(s): clausterphobia Past Psychological History: Anxiety, Bipolar, Depression, Panic Disorder, Schizoaffective Disorder Smoking Status: Current every day smoker Past Alcohol Use History: None Reported Past Drug Use History: None Reported - Past Family History Father Additional Family Medical History / Comment(s): Mother History Unknown: Yes Grandmother Family Medical History: Diabetes Mellitus Medications and Allergies Home Medications Medication Instructions Recorded Confirmed Type Nicotine Polacrilex [Nicorette] 2 mg BUCCAL Q2H PRN 04/18/19 08/29/19 History Paliperidone IM [Invega Sustenna] 234 mg IM Q28D 06/21/19 08/29/19 History Albuterol Sulfate [Albuterol 1 - 2 puff INHALATION RT-Q6H PRN 08/29/19 08/29/19 History Sulfate Hfa] Beclomethasone Dip 80 Mcg/Puff 1 puff INHALATION RT-BID 08/29/19 08/29/19 History [Qvar 80 mcg] Fluticasone Nasal [place] [Flonase 1 - 2 spr EA NOSTRIL DAILY 08/29/19 08/29/19 History Nasal [place]] LORazepam [Ativan] 0.5 mg PO TID PRN 08/29/19 08/29/19 History Norgestimate-Ethinyl Estradiol 1 tab PO DAILY 08/29/19 08/29/19 History [Sprintec 28 Day Tablet] Allergies Allergy/AdvReac Type Severity Reaction Status Date / Time fluphenazine [From Prolixin] Allergy seizures Verified 08/29/19 18:59 lamotrigine [From Lamictal] Allergy Rash/Hives Verified 08/29/19 18:59 metformin Allergy Rash/Hives Verified 08/29/19 18:59 Physical Exam Vitals: Vital Signs Temp Pulse Resp BP Pulse Ox 08/29/19 18:48 98 F 100 16 127/82 96 Intake and Output 08/29/19 08/29/19 08/30/19 14:59 22:59 06:59 Other: Weight 118.388 kg General: non toxic, no distress, appears at stated age, morbidly obese Derm: Hirsutism with hair underneath chin, no unusual rashes/lesions no unusual ecchymoses, warm, dry Head: atraumatic, normocephalic, symmetric Eyes: EOMI, no lid lag, anicteric sclera, pupils equal round reactive to light ENT: Nose and ears atraumatic, no thrush, no pharyngeal erythema Neck: No thyromegaly, no cervical lymphadenopathy, trachea midline, supple Mouth: no lip lesion, mucus membranes moist Cardiovascular: S1S2 reg, no murmur, positive posterior tibial pulse bilateral, no edema, capillary refill less than 2 seconds Lungs: CTA bilateral, no rhonchi, no rales , no accessory muscle use Abdominal: soft, nontender to palpation, no guarding, no appreciable organomegaly, normal bowel sounds Ext: no gross muscle atrophy, muscle strength 5 out of 5 in all 4 extremities grossly, no contractures, Neuro: CN II-XI grossly intact, light touch intact all 4 extremities, finger to nose within normal limits, Psych: Alert, oriented, appropriate affect Assessment and Plan Plan: PCOS with hirsutism -Continue with home combination OCP Asthma -Albuterol inhaler when necessary -Flovent inhaler bid Depression and suicidal ideation -As per psychiatry Thank you for allowing us to participate in the care of this patient. We will follow peripherally. Do not hesitate to contact us with questions. Someone can be reached from the [facility] hospitalist group at all hours of the day at [phone].
[2019-08-30] MEDS ORDERED: ALBUTEROL HFA INHALER INHALATION PRN (02:00)
[2019-08-30] MEDS: LORazepam 0.5 MG TAB PO PRN ×3 (04:26→21:21)
[2019-08-30] MEDS ORDERED: ZIPRASIDONE 20 MG VIAL IM PRN (06:00)
[2019-08-30] MEDS: FLUTICASONE 50MCG/SPRAY NASAL 16GM EA NOSTRIL SCH (08:38)
[2019-08-30] MEDS: FLUTICASONE 110 MCG INHALER INHALATION SCH ×2 (08:38→21:19)
[2019-08-30 08:57] LABS: Basophils # (A) 0.1 k/uL (0-0.2); Basophils % (A) 1 %; Eosinophils # (A) 0.2 k/uL (0-0.7); Eosinophils % (A) 2 %; HCT 45.9 % (34.0-46.0); Lymphocytes # (A) 2.4 k/uL (1.0-4.8); Lymphocytes % (A) 21 %; MCHC 32.7 g/dL (31.0-37.0); MCV 85.5 fL (80.0-100.0); Mean Platelet Volume 8.7; Monocytes # (A) 0.6 k/uL (0-1.0); Monocytes % (A) 5 %; Neutrophils # (A) 7.9 k/uL (1.3-7.7); Neutrophils % (A) 70 %; Platelet Count 324 k/uL (150-450); RBC 5.37 m/uL (3.80-5.40); RDW 13.1 % (11.5-15.5); WBC 11.2 k/uL (3.8-10.6)
[2019-08-30] MEDS ORDERED: norgestimate-ethinyl estradioL 1 EACH TABLET PO SCH (09:00)
[2019-08-30 09:05] LABS: ALT 28 U/L (4-34); AST 33 U/L (14-36); African American GFR (CKD) >90 (>60 ml/min/1.73 sqM); Albumin 4.9 g/dL (3.5-5.0); Alkaline Phosphatase 59 U/L (38-126); Anion Gap 12 mmol/L; Blood Urea Nitrogen 8 mg/dL (7-17); Carbon Dioxide 23 mmol/L (22-30); Chloride 106 mmol/L (98-107); Cholesterol 156 mg/dL (<200); Glucose 85 mg/dL (74-99); HDL Cholesterol 36 mg/dL (40-60); LDL Cholesterol,Calculated 104 mg/dL (0-99); Non-African American GFR(CKD) >90 (>60 ml/min/1.73 sqM); Potassium 4.3 mmol/L (3.5-5.1); Sodium 141 mmol/L (137-145); Total Bilirubin 2.4 mg/dL (0.2-1.3); Total Protein 7.8 g/dL (6.3-8.2); Triglycerides 80 mg/dL (<150)
[2019-08-30] MEDS: NICOTINE POLACRILEX 2 MG GUM BUCCAL PRN ×3 (09:22→15:44)
--- NOTE | 2019-08-30 11:00 | P.HP ---
Psychiatric H&P - . H&P Date: 08/30/19 History & Physical: Allergies Allergy/AdvReac Type Severity Reaction Status Date / Time fluphenazine [From Prolixin] Allergy seizures Verified 08/30/19 02:10 lamotrigine [From Lamictal] Allergy Rash/Hives Verified 08/30/19 02:10 metformin Allergy Rash/Hives Verified 08/30/19 02:10 Vital Signs Temp 98.0 F 08/30/19 00:07 Pulse 83 08/30/19 00:07 Resp 16 08/30/19 00:07 BP 123/68 08/30/19 00:07 Pulse Ox 100 08/30/19 00:07 Intake & Output 08/29/19 08/30/19 08/30/19 18:59 06:59 18:59 Weight 118.388 kg 116.205 kg Laboratory Last Values WBC 11.2 k/uL (3.8-10.6) H 08/30/19 08:08 RBC 5.37 m/uL (3.80-5.40) 08/30/19 08:08 Hgb 15.0 gm/dL (11.4-16.0) 08/30/19 08:08 Hct 45.9 % (34.0-46.0) 08/30/19 08:08 MCV 85.5 fL (80.0-100.0) 08/30/19 08:08 MCH 28.0 pg (25.0-35.0) 08/30/19 08:08 MCHC 32.7 g/dL (31.0-37.0) 08/30/19 08:08 RDW 13.1 % (11.5-15.5) 08/30/19 08:08 Plt Count 324 k/uL (150-450) 08/30/19 08:08 Neutrophils % 70 % 08/30/19 08:08 Lymphocytes % 21 % 08/30/19 08:08 Monocytes % 5 % 08/30/19 08:08 Eosinophils % 2 % 08/30/19 08:08 Basophils % 1 % 08/30/19 08:08 Neutrophils # 7.9 k/uL (1.3-7.7) H 08/30/19 08:08 Lymphocytes # 2.4 k/uL (1.0-4.8) 08/30/19 08:08 Monocytes # 0.6 k/uL (0-1.0) 08/30/19 08:08 Eosinophils # 0.2 k/uL (0-0.7) 08/30/19 08:08 Basophils # 0.1 k/uL (0-0.2) 08/30/19 08:08 Sodium 141 mmol/L (137-145) 08/30/19 08:08 Potassium 4.3 mmol/L (3.5-5.1) 08/30/19 08:08 Chloride 106 mmol/L (98-107) 08/30/19 08:08 Carbon Dioxide 23 mmol/L (22-30) 08/30/19 08:08 Anion Gap 12 mmol/L 08/30/19 08:08 BUN 8 mg/dL (7-17) 08/30/19 08:08 Creatinine 0.70 mg/dL (0.52-1.04) 08/30/19 08:08 Est GFR (CKD-EPI)AfAm >90 (>60 ml/min/1.73 sqM) 08/30/19 08:08 Est GFR (CKD-EPI)NonAf >90 (>60 ml/min/1.73 sqM) 08/30/19 08:08 Glucose 85 mg/dL (74-99) 08/30/19 08:08 Calcium 10.0 mg/dL (8.4-10.2) 08/30/19 08:08 Total Bilirubin 2.4 mg/dL (0.2-1.3) H 08/30/19 08:08 AST 33 U/L (14-36) 08/30/19 08:08 ALT 28 U/L (4-34) 08/30/19 08:08 Alkaline Phosphatase 59 U/L (38-126) 08/30/19 08:08 Total Protein 7.8 g/dL (6.3-8.2) 08/30/19 08:08 Albumin 4.9 g/dL (3.5-5.0) 08/30/19 08:08 Triglycerides 80 mg/dL (<150) 08/30/19 08:08 Cholesterol 156 mg/dL (<200) 08/30/19 08:08 LDL Cholesterol, Calc 104 mg/dL (0-99) H 07/22/20 08:08 HDL Cholesterol 36 mg/dL (40-60) L 08/30/19 08:08 TSH 0.958 mIU/L (0.465-4.680) 08/30/19 08:08 Urine Color Light Yellow 08/29/19 19:02 Urine Appearance Clear (Clear) 08/29/19 19: Urine pH 6.0 (5.0-8.0) 08/29/19 19:02 Ur Specific [place] 1.006 (1.001-1.035) 08/29/19 19:02 Urine Protein Negative (Negative) 08/29/19 19: Urine Glucose (UA) Negative (Negative) 08/29/19 19: Urine Ketones Negative (Negative) 08/29/19 19: Urine Blood Negative (Negative) 08/29/19: Urine Nitrite Negative (Negative) 08/29/19 19: Urine Bilirubin Negative (Negative) 08/29/19 19: Urine Urobilinogen <2.0 mg/dL (<2.0) 08/29/19 19: Ur Leukocyte Esterase Negative (Negative) 08/29/19 19: Urine HCG, Qual Not Detected (Not Detectd) 08/29/19 19:02 08/30/19 09:49 This is a case of a 29-year-old female admitted to the psychiatric unit on 721. She had come into the emergency department for migraines and for suicidal ideation her plan was to stick her hand and electrical outlet. The patient had come into the emergency room after taking an overdose of nicotine she was stabilized and sent home but says when she got home the suicidal ideation became stronger and stronger. She denies any precipitating irritants in her life at this time and says the depression just fluctuates on its own. Her concern both by her guardian and the staff here is that the patient gets bored at home and is almost as if she likes to come in here currently, as we listen to her and talk to her. Medications she is on haloperidol 234 mg IM every month She says she is ALLERGIC to Prolixin Lamictal and metformin She says that she has been taking her psychiatric medications but they just aren't working. She lives alone Past psychiatric history: According to my staff, the patient is a "frequent flyer" and does not give good history in regards to her past experiences. When she comes off of her antipsychotics she becomes quite manic psychotic and agitated. This is difficult because she believes that her problems are not bipolar that she does not get psychotic. She has a guardian who also seems to believe that most of the symptoms are just coming from the patient's PCOS. Though she needs antipsychotic medicines in and yet has tardive dyskinesia. We could try shifting over to closet being which usually does not exacerbate tardive dyskinesia but then the patient would have to be taking blood tests every week and the reason she is on in [place] is due to compliance issues. The patient has been treated with medicines mostly for bipolar disorder although she does not believe she has that she thinks she just has real bad depression she is currently on in [place] and says that it is causing her to have tardive dyskinesia. 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 I don't see any other signs of tardive she is on a high dose of intake and had her last shot on August 16 so does not dUE till next month. She was on lithium and did not like the side effects fact she is never tried Depakote she did take Lamictal and was ALLERGIC she had been on Abilify did not like the side effects Risperdal and she thought worked fairly well she says that was the first thing that she took she has had Geodon when necessary and hospitals and tolerated that she tried Seroquel and made her very sleepy. For depression she took Zoloft and became more agitated which does fit with bipolar. She also took Wellbutrin and was very positive about that. She was on Wellbutrin XL at 150 and did well for a long period of time. She has a vague history of "seizures "but she had an EEG and it was negative and she says that her "seizures" are just shaking of her head and during them she is alert and aware of her surroundings so they do not sound like seizure. In addition Wellbutrin at 150 is less likely to cause seizures then other medicines are. So she would like to try it understanding that there is a remote risk because she did so well on it. MedicaL history: The patient denies any major medical problems other than having had seizures, migraines, heart murmur, PCO S She's never had surgery Physical exam showed no acute problems Labs: She had a CBC with white count was elevated at 11.2 and neutrophils were elevated at 7.9, Gen. chemistry was normal except for slight increase in bilirubin and her LDL was slightly high and it HDL slightly low she had a clear urine no tox screen was run Vital signs temperature 90.8 rate 83 respirations 16 blood pressure 123/68 O2 sat is 100% Social history: The patient reports that she is the oldest of 3 sisters born to her parents and stayed together until dad when the patient was 18. She says that he was probably murdered that he was killed in a drunk driving accident but the whole thing was set up to look like an accident according to the patient. She says everybody in her family tree struggles with alcohol and anxiety and a lot of them take medicine occasions she just does not know what. As far she knows her and early development were normal. 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 She says she has a maternal aunt who has psychiatric problems and takes medications. She denies any involvement although she would've liked to no legal issues according to the patient. She lives in an apartment by herself with a Was currently being taken care of by the patient's aunt for exercise she likes to go out and ride her bike. She has a program available to her to participate during the day through [employer] but seldom goes. Substance use the patient smokes heavily and chews on top of it in fact that's what she used to try to "overdose and get help in the emergency room. She denies any use of alcohol or drugs Mental status exam: Patient is alert oriented to person place and circumstance has reasonable self-care. She has hair on her chin which is probably from the chronic use of antipsychotic, no evidence of responding to voices no pressured speech. Her affect is depressed psychomotor activity is down somewhat no evidence of delusions or illusions no aggression Assessment: Patient is currently in the depressive swing of up and down bipolar she has very little insight in this is going to be hard to change her trajectory. I think we will have to continue then Velazco which is due again on about the eighth of 9 month despite the blepharospasm if that gets worse we may have to use Botox injections. 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 It should be noted that people with bipolar do tend to respond well to lower doses of Wellbutrin and it does not cause increased daniel. Plan: The plan is to add Wellbutrin XL at 150 each morning and encouraged patient to go to groups and classes and take a look at her discharge and how she can get a life that is less boring. She is very positive about the use of Wellbutrin understands its pros and cons side effects and expected course. Diagnosis: Bipolar 1 depressed
[2019-08-30 23:22] LABS: Hemoglobin A1C 4.9 % (4.0-6.0)
[2019-08-31] MEDS: FLUTICASONE 110 MCG INHALER INHALATION SCH ×2 (08:19→20:11)
[2019-08-31] MEDS: FLUTICASONE 50MCG/SPRAY NASAL 16GM EA NOSTRIL SCH (08:19)
[2019-08-31] MEDS: SPRINTEC-28 PO SCH (08:20)
--- NOTE | 2019-08-31 08:39 | P.PN ---
Subjective Progress Note Date: 08/31/19 Principal diagnosis: Diagnosis: Bipolar 1 depressed onable eye contact psychomotor activity down affect flat self-care is minimum no signs of psychosis her responses fit the question is somewhat vague. She acknowledged that she is a frequent flyer but didn't seem to buy into the need to plan to do well and get some sort of the life. She has not yet had her first dose of Wellbutrin but I pointed out that although Wellbutrin helps with concentration and motivation she has to push herself to do things and that it really helps to have a written schedule someone told you accountable if one is going to work once plan. Assessment is that she has not likely to do well she is slowly motivated and low insight she needs to continue hospitalization due to having been actively adam cidal yesterday. Objective - Vital Signs Vital signs: Vital Signs Temp 98.6 F 08/31/19 05:54 Pulse 86 08/31/19 05:54 Resp 16 08/31/19 05:54 BP 123/68 08/31/19 05:54 Pulse Ox 100 08/30/19 00:07 - Labs CBC & Chem 7: 08/30/19 08:08 08/30/19 08:08 Labs: Abnormal Lab Results - Last 24 Hours (Table) 08/30/19 08/30/19 Range/Units 08:08 08:08 WBC 11.2 H (3.8-10.6) k/uL Neutrophils # 7.9 H (1.3-7.7) k/uL Total Bilirubin 2.4 H (0.2-1.3) mg/dL LDL Cholesterol, Calc 104 H (0-99) mg/dL HDL Cholesterol 36 L (40-60) mg/dL
[2019-08-31] MEDS: NICOTINE POLACRILEX 2 MG GUM BUCCAL PRN (20:12)
[2019-09-01] MEDS: FLUTICASONE 50MCG/SPRAY NASAL 16GM EA NOSTRIL SCH (08:10)
[2019-09-01] MEDS: FLUTICASONE 110 MCG INHALER INHALATION SCH ×2 (08:10→20:11)
[2019-09-01] MEDS: SPRINTEC-28 PO SCH (08:11)
[2019-09-01] MEDS: buPROPion XL 150 MG TAB.ER.24H PO SCH (10:53)
--- NOTE | 2019-09-01 10:53 | P.PN ---
Subjective Progress Note Date: 09/01/19 Principal diagnosis: Diagnosis: Bipolar 1 depressed Subjective: Patient says she has not been getting her Wellbutrin. I looked on the chart and she is correct sure that I had ordered it but can't find there. So ordered for a stat Wellbutrin now and then every morning as the patient definitely needs more energy. She has not been pushing herself to get to groups and she feels tired all the time but also admits that she sleeps because she is bored. The staff report that normally she is quite participant in the program Objective: She looks tired but cooperative she got up and came to talk to me in my office Vital signs: Temperature is 90.9 Labs on 722 her white count was somewhat elevated as were her neutrophils but she denies any symptoms of infection The patient is assessed by the staff to be oriented to person place time and circumstance she denies hallucinations and delusions focuses well has good insight and judgment is alert denies any suicidal or homicidal thoughts interacts well with peers and staff however she is disheveled and somewhat quiet and withdrawn which I'm told is not her usual response Groups: She has not been attending groups and she promises she will Mental status exam recently my contact quiet slow responses but does have a quick sense of humor no evidence of psychosis no aggression Assessment plan the patient needs to get on the Wellbutrin in order to have more energy and focus so asked him to give her 1 now and then get that each morning and for not just making sure she tolerates it of course will take a couple weeks to work she has done well on that in the past and I think having it on board will have a positive placebo effect if nothing else to get her to do her part she continues to need hospitalization to monitor medications and also to help her fight back against her tiredness and depression Objective - Vital Signs Vital signs: Vital Signs Temp 99.0 F 08/31/19 19:13 Pulse 86 08/31/19 05:54 Resp 16 08/31/19 05:54 BP 123/68 08/31/19 05:54 Pulse Ox 100 08/30/19 00:07 - Labs CBC & Chem 7: 08/30/19 08:08 08/30/19 08:08
[2019-09-01] MEDS: NICOTINE POLACRILEX 2 MG GUM BUCCAL PRN ×4 (10:54→20:11)
[2019-09-02] MEDS: buPROPion XL 150 MG TAB.ER.24H PO SCH (09:17)
[2019-09-02] MEDS: SPRINTEC-28 PO SCH (09:18)
[2019-09-02] MEDS: FLUTICASONE 110 MCG INHALER INHALATION SCH ×2 (09:18→21:31)
[2019-09-02] MEDS: FLUTICASONE 50MCG/SPRAY NASAL 16GM EA NOSTRIL SCH (09:18)
[2019-09-02] MEDS: NICOTINE POLACRILEX 2 MG GUM BUCCAL PRN ×6 (09:19→23:13)
[2019-09-03] MEDS: buPROPion XL 150 MG TAB.ER.24H PO SCH (08:23)
[2019-09-03] MEDS: NICOTINE POLACRILEX 2 MG GUM BUCCAL PRN ×5 (08:24→21:43)
[2019-09-03] MEDS: SPRINTEC-28 PO SCH (08:25)
[2019-09-03] MEDS: FLUTICASONE 50MCG/SPRAY NASAL 16GM EA NOSTRIL SCH (08:25)
[2019-09-03] MEDS: FLUTICASONE 110 MCG INHALER INHALATION SCH ×2 (08:25→21:42)
--- NOTE | 2019-09-03 10:27 | PN ---
PROGRESS NOTE DATE OF SERVICE: 09/02/2019 CHIEF COMPLAINT: The patient was depressed with suicidal thinking and a plan to stick her hand in an electrical outlet. INTERVAL HISTORY: The patient had a quiet evening last night. She comes out in the day area. She has been attending groups. She tends to have a quiet manner and will isolate. She has been appropriate in group. She slept fairly well last night. Today she has been up. She comes out in the day area. She notes that since the start of Wellbutrin, she feels a little better in her mood. She has continued to go to all groups and seems to be functioning fairly well. She has been cooperative with care. She tends to keep to herself. She has a good appetite. She tolerates her psychotropic medications. MENTAL STATUS: Patient gave fair eye contact. Psychomotor activity was slowed. Speech was monotone. She answered questions appropriately. She did not say a lot. Her thoughts were generally clear. Her affect was blunted. Her mood reserved. She seems somewhat distressed. There was no outward evidence of thought disorder. She denied any thoughts of harm to self or others. Cognition was clear. ASSESSMENT: I will continue the current diagnosis and treatment plan. We will continue to make efforts to engage the patient in individual and group therapeutic activities. The patient will continue Wellbutrin XL 150 mg a day as her only psychotropic medications. I reviewed medication issues with the patient. I discussed indications, as well as expectations and time course for treatment and expectations. We will continue to focus on stabilization and discharge planning. HENRY / EDGAR: [id number] /
[2019-09-03] MEDS: BENZTROPINE MESYLATE 0.5 MG TAB PO SCH ×2 (13:09→21:43)
--- NOTE | 2019-09-03 14:57 | PN ---
PROGRESS NOTE DATE OF SERVICE: 09/03/2019. CHIEF COMPLAINT: The patient was depressed with suicidal thinking and a plan to stick her hand in an electric outlet. INTERVAL HISTORY: Patient has been doing fairly well. She had a quiet evening last night. She comes out in the day area. She interacts some with others. She tends to have a quiet manner. She has been attending groups and seems to engage in a positive way. Sometimes her thinking is noted to be concrete with magical thinking and low energy. She slept well last night. Today she has been up. She comes out in the day area. She has continued to attend groups. She says her mood is improving. She has a good outlook. She talked about being hopeful for discharge tomorrow. She notes that she has some issues with what she calls "brain freeze." She describes that as where she has some problems getting her words out. She also notes some restless legs, especially at night. She wondered if it related to her Invega Sustenna. Her last dose was in early August. She said that Dr. Villarreal had suggested the dose might be lowered for her next scheduled dose. Otherwise, she feels that she tolerates her medications well. She does feel that her mood and thoughts are improving. MENTAL STATUS: Patient sat without restlessness. She gave good eye contact. Psychomotor activity was slowed. Speech was somewhat monotone. She answered questions appropriately. Her thoughts were clear. It was noteworthy that at times she talks slow and sometimes there is latency in her response. She tends to have a somewhat emotionless expression when she talks. Her affect was a little constricted. Her mood quiet though not down or depressed. She did not appear to be distressed. There was no outward indication of thought disorder. She voiced no thoughts of harm to self or others. She was oriented and alert. ASSESSMENT: I will continue the current diagnosis and treatment plan. There is concern that the patient may be showing some EPS symptoms with difficulties with speech production and some psychomotor issues. I will start the patient on Cogentin 0.5 mg twice a day. The patient said that she had previously been on Cogentin, though it was stopped after 1 day. She was not clear about the reason. She does note that she has a heart murmur. She does not identify any general health issues that would be a problem for her. I suggested she try the lower dose for at least 1 week until she sees her psychiatrist for followup. We will focus on stabilization and discharge planning. Patient is hopeful that she may be able to be discharged on Wednesday or early in the week. HENRY / JAVIERN: [id number] /
[2019-09-03] MEDS ORDERED: PRAMOX-CALAMINE 1-8% LOTION 1 APPLIC/5 ML LOTION TOPICAL PRN (16:14)
[2019-09-03] MEDS: LORazepam 0.5 MG TAB PO PRN (18:48)
[2019-09-04 06:12] VITALS: BP 92/50; PULSE 56
[2019-09-04] MEDS: buPROPion XL 150 MG TAB.ER.24H PO SCH (08:28)
[2019-09-04] MEDS: SPRINTEC-28 PO SCH (08:28)
[2019-09-04] MEDS: BENZTROPINE MESYLATE 0.5 MG TAB PO SCH (08:28)
[2019-09-04] MEDS: FLUTICASONE 110 MCG INHALER INHALATION SCH (08:28)
[2019-09-04] MEDS: FLUTICASONE 50MCG/SPRAY NASAL 16GM EA NOSTRIL SCH (08:28)
[2019-09-04] MEDS: NICOTINE POLACRILEX 2 MG GUM BUCCAL PRN ×2 (08:29→12:14)
--- NOTE | 2019-09-04 12:03 | P.DS ---
Providers Date of admission: 08/29/19 23:39 Expected date of discharge: 09/04/19 Attending physician: Martha Byers MD Consults: 08/29/19 23:50 Consult Physician Routine Consulting Provider: Chitra Yeboah Consult Reason/Comments: H&P and medical Do you want consulting provider notified?: Yes Primary care physician: [facility] - Discharge Diagnosis(es) (1) Schizoaffective disorder, bipolar type Current Visit: Yes Status: Acute Hospital Course: This case is a 29-year-old female was admitted to the psych med unit on 08/29/2019 She came in due to suicidal ideation thinking of sticking her hand into electric outlet or more specifically putting a paper clip in and then touching she had recently been admitted in the emergency room briefly for taking a "overdose of nicotine "she said when she went home she got more and more agitated and depressed. She told me that she had been on Wellbutrin in the past with XL 150 and that that has helped a lot. She was complaining of blepharospasm from her medication which of course can be increased with the paliperidone, inVega which she gets once a month at 224 mg however without it she does not stabilize and I did not see any other symptoms of tardive dyskinesia. The patient quickly gave up suicidal thoughts and feelings and no urge to hurt anyone else went to groups and classes and participated well worked on a post discharge plan it was felt by myself and the team and the patient that she was stabilized. She was also able to verbalize a discharge plan with some detail. Mental status exam: Alert oriented to person place time and circumstance reasonable self-care she is no longer withdrawn denies any suicidal or homicidal thoughts denies any psychotic content to her experience is tolerating the Wellbutrin well at 150 which has worked for her in the past gait and station normal self-care is adequate Plan: Discharged patient on in [place] and the Wellbutrin Assessment: The patient has been doing better going to groups and classes and participating interacting well with peers and others cooperative with her medications. She felt that the medicine she was on was making her more agitated we have taken her off the Tegretol added in low-dose Wellbutrin SR that she's done well in the past and she feels that she has much improved Health Concerns: Other than the chronic problem of P COS with hirsutism and some asthma patient has no acute medical problems at this time Pertinent Studies: She have basic lab tests run when she came in on the including a hematology showed a slight increase in white count and neutrophils however she denies any symptoms of infection she had a general chemistry which is normal except for a slight increase in bilirubin of 2.4 Vital signs: Temperature 97.8 heart rate 56 respirations 16 blood pressure 92/50 at O2 sat was 98 on room air Procedures: None Patient Condition at Discharge: Stable Plan - Discharge Summary New Discharge Prescriptions: New Benztropine Mesylate [Cogentin] 0.5 mg PO BID tab buPROPion XL [Wellbutrin XL] 150 mg PO DAILY 30 Days #30 tab.er.24h Continue Paliperidone IM [Invega Sustenna] 234 mg IM Q28D Norgestimate-Ethinyl Estradiol [Sprintec 28 Day Tablet] 1 tab PO DAILY Beclomethasone Dip 80 Mcg/Puff [Qvar 80 mcg] 1 puff INHALATION RT-BID Fluticasone Nasal [place] [Flonase Nasal [place]] 1 - 2 spr EA NOSTRIL DAILY Albuterol Sulfate [Albuterol Sulfate Hfa] 1 - 2 puff INHALATION RT-Q6H PRN PRN Reason: Shortness Of Breath Discontinued Nicotine Polacrilex [Nicorette] 2 mg BUCCAL Q2H PRN PRN Reason: cravings LORazepam [Ativan] 0.5 mg PO TID PRN PRN Reason: Anxiety Discharge Medication List Paliperidone IM [Invega Sustenna] 234 mg IM Q28D 06/21/19 [History] Albuterol Sulfate [Albuterol Sulfate Hfa] 1 - 2 puff INHALATION RT-Q6H PRN 08/29/19 [History] Beclomethasone Dip 80 Mcg/Puff [Qvar 80 mcg] 1 puff INHALATION RT-BID 08/29/19 [History] Fluticasone Nasal [place] [Flonase Nasal [place]] 1 - 2 spr EA NOSTRIL DAILY 08/29/19 [History] Norgestimate-Ethinyl Estradiol [Sprintec 28 Day Tablet] 1 tab PO DAILY 08/29/19 [History] Benztropine Mesylate [Cogentin] 0.5 mg PO BID tab 09/04/19 [Rx] buPROPion XL [Wellbutrin XL] 150 mg PO DAILY 30 Days #30 tab.er.24h 09/04/19 [Rx] Follow up Appointment(s)/Referral(s): [facility] [Primary Care Provider] - 1-2 days Patient Instructions/Handouts: Depression (DC), Help Prevent Suicide (DC) Activity/Diet/Wound Care/Special Instructions: Activity and diet as tolerated. Avoid the use of street drugs and alcohol. Take all medications as prescribed. When you are in need of refills on your medications please contact your medical provider and/or outpatient psychiatrist to have this done. Please go to scheduled outpatient appointment for aftercare treatment. If symptoms return or become worse, call the crisis line at and/or go to the nearest emergency room for evaluation
[2019-09-04 14:17] VITALS: TEMP 98.1
== END 2019-09-04 14:18 | disposition home or self-care (01) | DRG 885 ==
LOC: SUPCPDRO 18:45 → EC 18:45 → 3MHU 23:39
PROVIDERS: ADMIT Psychiatry & Neurology Psychiatry; ATTEND Psychiatry & Neurology Psychiatry
DX: F25.0 Schizoaffective disorder, bipolar type (principal); R45.851 Suicidal ideations; Z68.41 Body mass index [BMI] 40.0-44.9, adult; E28.2 Polycystic ovarian syndrome; F17.210 Nicotine dependence, cigarettes, uncomplicated; F41.0 Panic disorder [episodic paroxysmal anxiety]; G24.5 Blepharospasm; T43.595A Adverse effect of other antipsychotics and neuroleptics, initial encounter; G25.81 Restless legs syndrome; G40.909 Epilepsy, unspecified, not intractable, without status epilepticus; J45.909 Unspecified asthma, uncomplicated; E66.01 Morbid (severe) obesity due to excess calories; L68.0 Hirsutism; G43.909 Migraine, unspecified, not intractable, without status migrainosus; F40.240 Claustrophobia; R01.1 Cardiac murmur, unspecified; Z88.8 Allergy status to other drugs, medicaments and biological substances; Z79.899 Other long term (current) drug therapy; Z83.3 Family history of diabetes mellitus; Z91.19 Patient's noncompliance with other medical treatment and regimen
CPT/HCPCS: 80053; 80061; 81003; 81025; 82075; 83036; 84443; 85025; 99285